=== PATIENT | female | born 1965 | race Caucasian/White ===

== ENCOUNTER → 2017-06-13 16:52 | Outpatient (CLI) | payer BC, SELFPAY ==
--- NOTE | 2017-06-13 16:59 | MM_ITS ---
MM Dig screening mamm BI w/CAD CAD Screening COMPARISON: Digital mammograms 05/27/2015 and 07/22/2016 INDICATION: There is no personal or family history of breast cancer. There is been previous biopsy right breast. TECHNIQUE: Standard CC and MLO images were obtained. R2 CAD reviewed. FINDINGS: Scattered fibroglandular densities are seen in both breasts. The findings are stable and unchanged from previous exam. There is no suspicious lesion and there are no suspicious microcalcifications. Small nodes in both axilla. IMPRESSION: Stable exam no suspicious lesion seen recommend yearly follow-up BI-RADS Category: 2 Benign Finding(s) RECOMMENDED FOLLOW-UP: 1YR - 1 YEAR FOLLOW-UP (A letter has been sent to the patient regarding results of the study.)
[2017-06-13 19:42] LABS: Alanine Aminotransferase 44 U/L (12-78); Albumin Level 4.2 gm/dL (3.4-5.0); Albumin/Globulin Ratio 1.4 (1.1-1.8); Alkaline Phosphatase 116 U/L (46-116); Aspartate Amino Transferase 21 U/L (15-37); Bilirubin,Total 0.3 mg/dL (0.2-1.0); Blood Urea Nitrogen 21 mg/dL (7-18); Calcium 9.2 mg/dL (8.5-10.1); Carbon Dioxide 34 mmol/L (21.0-32.0); Chloride 99 mmol/L (98-107); Creatinine,Serum 1.24 mg/dL (0.55-1.02); Estimated Glomerular Filt Rate 45 ml/min (>60); GFR (African American) 55 ML/MIN (>60); Globulin 3.1 gm/dl (1.3-3.2); Glucose 107 mg/dL (74-106); Sodium 138 mmol/L (136-145); Total Protein,Serum 7.3 gm/dL (6.4-8.2)
== END ==
PROVIDERS: PCP Family Medicine; Visit Provider Family Medicine
DX: Z12.31 Encounter for screening mammogram for malignant neoplasm of breast (principal)
CPT/HCPCS: 77067; 80053

== ENCOUNTER → 2017-06-13 17:18 | Outpatient (CLI) | payer BC, SELFPAY | PROVIDERS: PCP Family Medicine; Visit Provider Family Medicine | DX: R74.8 Abnormal levels of other serum enzymes (principal) ==

== ENCOUNTER → 2018-06-16 16:41 | Outpatient (CLI) | payer BC, SELFPAY ==
--- NOTE | 2018-06-16 16:44 | MM_ITS ---
MM Dig screening mamm BI w/CAD CAD Screening COMPARISON: Digital mammograms with CAD 06/13/2017 and 07/22/2016 INDICATION: There is no personal or family history of breast cancer. There has been a previous biopsy for benign disease right breast TECHNIQUE: Standard CC and MLO images were obtained. R2 CAD reviewed. FINDINGS: Mild to moderate fibroglandular densities are seen in the central portions of both breasts. The findings are bilateral and symmetrical. There is no suspicious lesion in either breast and there are no suspicious microcalcifications. IMPRESSION: Stable exam with no suspicious lesion seen BI-RADS Category: 1 Negative RECOMMENDED FOLLOW-UP: 1YR - 1 YEAR FOLLOW-UP (A letter has been sent to the patient regarding results of the study.)
== END ==
PROVIDERS: PCP Family Medicine; Visit Provider Family Medicine
DX: Z12.31 Encounter for screening mammogram for malignant neoplasm of breast (principal)
CPT/HCPCS: 77067

== ENCOUNTER → 2019-03-14 07:06 | Outpatient (CLI) | payer BC, SELFPAY ==
[2019-03-14 07:35] LABS: Basophils # 0.1 K/mm3 (0-0.2); Basophils % 1.2 % (0.1-2.0); Eosinophils # 0.2 K/mm3 (0.0-0.4); Eosinophils % 2.7 % (0.1-12.0); Hematocrit 42.8 % (37.0-47.0); Hemoglobin 13.3 g/dL (12.2-16.2); Lymphocytes # 1.9 K/mm3 (0.7-4.5); Lymphocytes % 32.9 % (10-50); Mean Corpuscular Hemoglobin 29.2 pg (27.0-31.2); Mean Corpuscular Volume 94.1 fl (81-99); Mean Platelet Volume 8.4 fl (7.4-10.4); Monocytes # 0.3 K/mm3 (0.1-1.0); Monocytes % 4.7 % (1.7-9.3); Neutrophils # 3.3 K/mm3 (1.8-7.8); Neutrophils % 58.6 % (37.0-80.0); Platelet Count 267 K/mm3 (142-424); Red Blood Count 4.55 M/mm3 (4.20-5.40); Red Cell Distribution Width 14.7 % (11.5-17.5); White Blood Count 5.7 K/mm3 (4.8-10.8)
[2019-03-14 08:55] LABS: Alanine Aminotransferase 52 U/L (12-78); Albumin Level 3.5 gm/dL (3.4-5.0); Alkaline Phosphatase 97 U/L (46-116); Anion Gap 11.6 mEq/L (5-15); Aspartate Amino Transferase 19 U/L (15-37); Bilirubin,Total 0.4 mg/dL (0.2-1.0); Blood Urea Nitrogen 23 mg/dL (7-18); Calcium 8.9 mg/dL (8.5-10.1); Carbon Dioxide 30 mmol/L (21.0-32.0); Chloride 103 mmol/L (98-107); Chol/HDL Ratio 4.9 (1-3.5); Cholesterol 242 mg/dL (140-200); Creatinine,Serum 1.02 mg/dL (0.55-1.02); Estimated Glomerular Filt Rate 56 ml/min (>60); GFR (African American) 68 ML/MIN (>60); Globulin 3.5 gm/dl (1.3-3.2); Glucose 116 mg/dL (74-106); HDL Cholesterol 49 mg/dL (29-89); LDL Cholesterol 153 mg/dL (0-130); Potassium 4.6 mmoL/L (3.5-5.1); Sodium 140 mmol/L (136-145); Triglycerides 199 mg/dL (30-200); VLDL Cholesterol 40 mg/dL (0-40)
[2019-03-14 11:26] LABS: Hemoglobin A1C 6.4 % (0.0-7.0)
[2019-03-15 09:12] LABS: Iron 76 ug/dL (27-159); UIBC 215 ug/dL (131-425)
[2019-03-15 14:27] LABS: Vitamin D 25 Hydroxy 29.2 ng/mL (30.0-100.0)
[2019-03-15 14:28] LABS: Iron Saturation 26 % (15-55)
== END ==
PROVIDERS: Visit Provider Physician Assistant
DX: I10 Essential (primary) hypertension (principal); E78.00 Pure hypercholesterolemia, unspecified; E55.9 Vitamin D deficiency, unspecified; R73.9 Hyperglycemia, unspecified; E61.1 Iron deficiency
CPT/HCPCS: 36415; 80053; 80061; 82652; 83036; 83540; 83550; 85025

== ENCOUNTER → 2019-03-30 13:45 | Outpatient (CLI) | payer BC, SELFPAY ==
--- NOTE | 2019-03-30 13:48 | XR_ITS ---
PROCEDURE: XR HAND RT MIN 3V CLINICAL INDICATION: Rt hand pain COMPARISON: No exams were available for comparison FINDINGS: No fracture or dislocation. No lytic or blastic change. There is normal mineralization. There is some mild lateral subluxation of the 1st metacarpal with minimal osteoarthritic change at the 1st MCP joint IMPRESSION: There is some mild lateral subluxation of the 1st metacarpal with minimal osteoarthritic change at the 1st MCP joint Dictated by: Dirk Massey MD 03/30/2019 15:43 Electronically signed by Dirk Massey MD in [place] 03/30/2019 15:43
== END ==
PROVIDERS: PCP Family Medicine; Visit Provider Orthopaedic Surgery
DX: M79.641 Pain in right hand (principal)
CPT/HCPCS: 73130

== ENCOUNTER → 2019-04-16 14:15 | Outpatient (POV) | payer BC, SELFPAY | PROVIDERS: Visit Provider Specialist | DX: G56.01 Carpal tunnel syndrome, right upper limb (principal); R20.0 Anesthesia of skin | CPT/HCPCS: 95886; 95910 ==

== ENCOUNTER → 2019-07-04 16:42 | Outpatient (CLI) | payer BC, SELFPAY ==
--- NOTE | 2019-07-04 | MM_ITS ---
PROCEDURE: MM DIG SCREENING MAMM BI W/CAD CLINICAL INDICATION: ROUTINE SCREENING COMPARISON: DMSB DIG MAMM-SCREEN ANDREIA from 05/22/2014 D[facility]B DIG MAMM-SCREEN ANDREIA from 05/27/2015 DMDXUAVL DIG MAMM-DX UNI ADD VIEWS-LT from 06/05/2015 DMDXUWAL DIG MAMM-DX UNI LT W ADD VIEW from 01/02/2016 [facility] DIG MAMM-SCREEN ANDREIA W/CAD from 07/22/2016 [facility] MM Dig screening mamm BI w/CAD from 06/13/2017 [facility] MM Dig screening mamm BI w/CAD from 06/16/2018 TECHNIQUE: Standard CC and MLO images and 3D Tomosynthesis was obtained. R2 CAD reviewed. FINDINGS: There is average fibroglandular tissue. On the right MLO there is skin fold artifact in the axilla. Recommend repeat view with compression the skin fold artifact. On the CC view on the right there is a rounded 7 mm nodular density in the lateral aspect of the right breast. This is not demonstrated on the MLO view. Suggest additional views with spot compression cc, straight mL view and right breast ultrasound. The left breast has an unremarkable appearance. IMPRESSION: BI-RAD Category: 0 Need Additional Imaging Evaluation FOLLOW-UP: IMM Immediate Follow-up Recommended (A letter has been sent to the patient regarding results of the study.) Dictated by: Dirk Massey MD 07/12/2019 11:09 Electronically signed by Dirk Massey MD in [place] 07/12/2019 11:09
== END ==
PROVIDERS: PCP Family Medicine; Visit Provider Family Medicine
DX: Z12.39 Encounter for other screening for malignant neoplasm of breast (principal)
CPT/HCPCS: 77063; 77067

== ENCOUNTER → 2019-07-30 14:05 | Outpatient (CLI) | payer BC, SELFPAY ==
--- NOTE | 2019-07-30 14:11 | MM_ITS ---
PROCEDURE: MM DIG MAMM DX UNILAT RT CAD CLINICAL INDICATION: ABNORMAL MAMM COMPARISON: [facility] MM Dig screening mamm BI w/CAD from 06/13/2017 [facility] MM Dig screening mamm BI w/CAD from 06/16/2018 MM DIG SCREENING MAMM BI W/CAD from 07/04/2019 US BREAST RT COMPLETE from 07/30/2019 TECHNIQUE: Additional MLO, spot-compression views, repeat 3D tomosynthesis, and right breast ultrasound FINDINGS: Average fibroglandular tissue. Additional MLO was performed with resolution of the skin fold artifact. Small cluster of calcifications are noted in the inferior aspect of the right breast and a not appear significantly changed. The nodular area in the lateral aspect of the right breast does appear to at least partially compress out Right breast ultrasound: At 12 o'clock there is a 4 x 3 mm cyst. At 9 o'clock there is a complex cystic lesion at 6 x 5 mm and may correspond to the nodular area noted on the mammogram/tomogram. In the retroareolar region there is a 1 x 0.5 cm cystic area versus dilated duct. No suspicious nodules evident IMPRESSION: Probably benign findings with no convincing evidence of malignancy. Recommend six-month mammographic and sonographic follow-up for the complex cystic nodule laterally. BI-RAD Category: 3 Probably Benign Finding Short Term Follow-up FOLLOW-UP: 6M 6Month Follow-up (A letter has been sent to the patient regarding results of the study.) Dictated by: Dirk Massey MD 08/06/2019 11:51 Electronically signed by Dirk Massey MD in [place] 08/06/2019 11:51
== END ==
PROVIDERS: PCP Family Medicine; Visit Provider Family Medicine
DX: R92.8 Other abnormal and inconclusive findings on diagnostic imaging of breast (principal)
CPT/HCPCS: 76641; 77061; 77065; G0279

== ENCOUNTER 2020-01-01 17:40 | Emergency (ER) | payer BC, SELFPAY ==
[2020-01-01 18:05] VITALS: BP 143/94; PULSE 80; RESP 16; TEMP 36.8; O2SAT 98; BMI 28.1
--- NOTE | 2020-01-01 18:12 | HMH.EDUTC ---
[facility] [place] Clinical Impression: Vertigo Disposition: Home, Self-Care Condition on Discharge: Good Instructions: Vertigo Additional Instructions: if any new symptoms come back to ed meds as ordered follow up with pcp in am Prescriptions: Meclizine HCl 25 mg PO BID 4 Days #8 tab Prescription Printed Referrals: Jay Cooper [Primary Care Provider] - Time of Disposition: 18:25 Medical Decision Making - [place] Inquiry Pt receiving controlled substance: No Vital Signs: 01/01/20 18:05 Temperature 98.2 F Temperature Source Oral Pulse Rate [Right Brachial] 80 Respiratory Rate 16 Blood Pressure [Right Arm] 143/94 H Blood Pressure Mean [Right Arm] 110 Blood Pressure Source [Right Arm] Automatic Cuff Blood Pressure Position [Right Arm] Sitting 02 Sat by Pulse Oximetry 98 Oxygen Delivery Method Room Air [facility] [place] HPI - General Chief complaint: Urgent [facility] Stated complaint: possible inner ear infection both ears Time Seen by Provider: 01/01/20 18:12 Mode of Arrival: Ambulatory Source of Information: Patient Limitations: No Limitations Description of Symptoms (Recalled from Triage Doc. by RN): VERTIGO HEENT Symptoms (Recalled from RN notes): No Resp Symptoms (Recalled from RN notes): No Skin Symptoms (Recalled from RN notes): No MS Symptoms (Recalled from RN notes): No Functional Status (Recalled from RN notes): NONE - History of Present Illness Provider Complaint: 54-year-old female presents for dizziness and foggy feeling. Patient states she has a history of vertigo and this feels like her normal vertigo patient states no weakness numbness or any other symptoms.pt does not want to go to ed for eval states this is like her normal vertigo - Related Data Home Medications Medication Instructions Recorded Confirmed escitalopram oxalate 10 mg tablet 10 mg PO DAILY 90 Days tab 11/22/17 07/16/19 triamterene 37.5 1 cap PO DAILY 90 Days cap 11/22/17 07/16/19 mg-hydrochlorothiazide 25 mg capsule pramipexole 0.125 mg tablet 3 tab PO DAILY #90 tab 03/05/19 07/16/19 atorvastatin 10 mg tablet 10 mg PO DAILY 04/15/19 07/16/19 pantoprazole 40 mg granules 40 mg PO DAILY 04/15/19 07/16/19 delayed-release for susp in packet Previous Rx's Medication Instructions Recorded Meclizine HCl 25 mg PO BID 4 Days #8 tab 01/01/20 Allergies Allergy/AdvReac Type Severity Reaction Status Date / Time acetaminophen [From Percocet] AdvReac Mild NA-NAUSEA Verified 07/16/19 13:39 aspirin AdvReac Mild NA-NAUSEA Verified 07/16/19 13:39 codeine AdvReac Mild NA-NAUSEA Verified 07/16/19 13:39 oxycodone [From Percocet] AdvReac Mild NA-NAUSEA Verified 07/16/19 13:39 Sulfa (Sulfonamide AdvReac Mild NA-NAUSEA Verified 07/16/19 13:39 Antibiotics) - Worker's Comp Is this a Worker's Comp case?: No [facility] History - Hepatitis A Screen Drug use history?: No High risk sexual behaviors?: No History of sexually transmitted infection?: No Currently employed?: No Childcare worker?: No Do you have indoor plumbing?: Yes Do you have electricity?: Yes Attestation statement:: This patient has been screened for Hepatitis A risk factors. I have reviewed the patient's past medical history: Yes Medical History: Reports:: Anxiety, Depression, Gastroesophageal Reflux Disease(GERD), Hypertension Denies:: Cancer, Diabetes Mellitus Type 1, Diabetes Mellitus Type 2, Internal Pacemaker, MRSA, Seizures Other Medical History: Reports: Other. Denies: Blood Transfusion Reaction Comment: restless leg syndrome Other Surgeries: Yes: Cholecystectomy, Colonoscopy, Hysterectomy-Partial. No: Pacemaker Amputation: No Fractures: No Comment: Lithotripsy - Social History Smoking Status: Never smoker Alcohol Intake: never Alcohol Intake Frequency:: a few times a month Substance Use Type: denies use Occupational Status: employed Housing: house Household Members: spouse - Psychiatric History Pschychiatric History:: Re
[2020-01-01 18:19] VITALS: BP 143/69; PULSE 80; RESP 16; TEMP 36.8
== END 2020-01-01 18:35 | disposition home or self-care (01) ==
PROVIDERS: Emergency Provider Nurse Practitioner Family; PCP Family Medicine
DX: R42 Dizziness and giddiness (principal); F41.8 Other specified anxiety disorders; K21.9 Gastro-esophageal reflux disease without esophagitis; I10 Essential (primary) hypertension; Z90.49 Acquired absence of other specified parts of digestive tract; Z79.899 Other long term (current) drug therapy; Z88.2 Allergy status to sulfonamides
CPT/HCPCS: 99201

== ENCOUNTER → 2020-02-06 14:11 | Outpatient (CLI) | payer BC, SELFPAY ==
--- NOTE | 2020-02-06 14:20 | MM_ITS ---
PROCEDURE: MM DIG MAMM DX UNILAT RT CAD Digital Breast Tomosynthesis Included CLINICAL INDICATION: ABN MAMM COMPARISON: MG [facility] MM Dig screening mamm BI w/CAD from 06/16/2018 MG MM DIG SCREENING MAMM BI W/CAD from 07/04/2019 MG MM DIG MAMM DX UNILAT RT CAD from 07/30/2019 US US BREAST RT COMPLETE from 02/06/2020 TECHNIQUE: Standard CC and MLO images and 3D Tomosynthesis was obtained. R2 CAD reviewed. FINDINGS: Fibroglandular densities are seen in the breast primarily upper outer quadrant. Mendez images again demonstrate a small irregular density unchanged in appearance from the previous exams. Ultrasound performed same date shows a stable small complex cyst with internal septation. IMPRESSION: Stable exam with stable small complex cyst and recommend the patient continue with yearly screening mammography BI-RAD Category: 2 Benign Finding(s) FOLLOW-UP: 6M 6Month Follow-up to return to normal yearly screening schedule (A letter has been sent to the patient regarding results of the study.) Dictated by: Dr. Eben Sanz MD 02/08/2020 11:09 Dr. Eben Sanz MD in [place] 02/08/2020 11:09
--- NOTE | 2020-02-06 14:20 | US_ITS ---
PROCEDURE: US BREAST RT COMPLETE CLINICAL INDICATION: ABN MAMM COMPARISON: US US BREAST RT COMPLETE from 07/30/2019 MG MM DIG MAMM DX UNILAT RT CAD from 02/06/2020 FINDINGS: Stable small hypoechoic cystic lesion with internal septation at the 9 o'clock position outer breast measuring 0.5 x 0.5 by 0.5 cm. This likely accounts for the small asymmetric density on the mammogram. It is stable unchanged in size and overall appearance from the previous ultrasound exam 07/30/2019 there is a stable small cystic lesion near the nipple. There couple of tiny cystic lesions near the nipple the 12 1 o'clock position and these were seen previously. There is no suspicious solid lesion. IMPRESSION: Stable cystic lesion likely complex cyst 9 o'clock position which likely accounts for the asymmetric density on recent mammogram Dictated by: Dr. Eben Sanz MD 02/08/2020 13:35 Dr. Eben Sanz MD in [place] 02/08/2020 13:35
== END ==
PROVIDERS: PCP Family Medicine; Visit Provider Physician Assistant
DX: R92.8 Other abnormal and inconclusive findings on diagnostic imaging of breast (principal)
CPT/HCPCS: 76641; 77061; 77065; G0279

== ENCOUNTER 2020-05-02 11:05 | Emergency (ER) | payer BC, SELFPAY ==
[2020-05-02 11:30] VITALS: BP 158/98; PULSE 65; RESP 16; TEMP 36.9; O2SAT 99; BMI 29.1
--- NOTE | 2020-05-02 11:50 | HMH.EDUTC ---
[facility] [place] Disposition Clinical Impression: Viral syndrome, Exposure to COVID-19 virus Pharyngitis Qualifiers: Pharyngitis/tonsillitis etiology: unspecified etiology Qualified Code(s): J02.9 - Acute pharyngitis, unspecified Disposition: Home, Self-Care Condition on Discharge: Good Instructions: Preventing the Spread of Coronavirus Discharge Instructions Additional Instructions: Drink plenty of fluids. Take tylenol for pain or fever. Take the medications as directed. Follow up with your regular doctor. GO TO THE ER FOR ANY WORSENING SYMPTOMS Prescriptions: Benzonatate [Tessalon Perle 100mg Cap] 100 mg PO TIDP PRN #30 cap PRN Reason: Cough Transmission Status: Received by [facility] # Azithromycin [Z-Ray 250mg Tab*] 250 mg PO UD DOSE PK #6 tab Transmission Status: Received by [facility] # Referrals: Jay Cooper [Primary Care Provider] - Time of Disposition: 11:55 Medical Decision Making - Medical Records Medical records reviewed: No: I reviewed the patient's medical records. - [place] Inquiry Pt receiving controlled substance: No Vital Signs: 05/02/20 11:30 05/02/20 11:58 Temperature 98.4 F 98.6 F Temperature Source Oral Oral Pulse Rate 74 Pulse Rate [Right] 65 Respiratory Rate 16 16 Blood Pressure 154/94 H Blood Pressure [Right Arm] 158/98 H Blood Pressure Mean [Right Arm] 118 Blood Pressure Source Automatic Cuff Blood Pressure Source [Right Arm] Automatic Cuff Blood Pressure Position Sitting Blood Pressure Position [Right Arm] Sitting 02 Sat by Pulse Oximetry 99 Oxygen Delivery Method Room Air Room Air [facility] [place] HPI - General Stated complaint: Covid test Time Seen by Provider: 05/02/20 11:50 Mode of Arrival: Ambulatory Source of Information: Patient Limitations: No Limitations Description of Symptoms (Recalled from Triage Doc. by RN): headache, dry cough, rash, sore throat since yesterday HEENT Symptoms (Recalled from RN notes): Yes (cough, headache, rash) Resp Symptoms (Recalled from RN notes): No Skin Symptoms (Recalled from RN notes): No MS Symptoms (Recalled from RN notes): No Functional Status (Recalled from RN notes): na - History of Present Illness Provider Complaint: She states that since yesterday she has had a cough, chest congestion, sinus congestion, sore throat, chilling, and a skin rash. She states that she feels very bad and has had body aches. She denies any known exposure to covid. - Related Data Home Medications Medication Instructions Recorded Confirmed escitalopram oxalate 10 mg tablet 10 mg PO DAILY 90 Days tab 11/22/17 01/01/20 triamterene 37.5 1 cap PO DAILY 90 Days cap 11/22/17 01/01/20 mg-hydrochlorothiazide 25 mg capsule pramipexole 0.125 mg tablet 3 tab PO DAILY #90 tab 03/05/19 01/01/20 atorvastatin 10 mg tablet 10 mg PO DAILY 04/15/19 01/01/20 pantoprazole 40 mg granules 40 mg PO DAILY 04/15/19 01/01/20 delayed-release for susp in packet Previous Rx's Medication Instructions Recorded Meclizine HCl 25 mg PO BID 4 Days #8 tab 01/01/20 Azithromycin [Z-Ray 250mg Tab*] 250 mg PO UD DOSE PK #6 tab 05/02/20 Benzonatate [Tessalon Perle 100mg 100 mg PO TIDP PRN #30 cap 05/02/20 Cap] Allergies Allergy/AdvReac Type Severity Reaction Status Date / Time acetaminophen [From Percocet] AdvReac Mild NA-NAUSEA Verified 01/01/20 18:18 aspirin AdvReac Mild NA-NAUSEA Verified 01/01/20 18:18 codeine AdvReac Mild NA-NAUSEA Verified 01/01/20 18:18 oxycodone [From Percocet] AdvReac Mild NA-NAUSEA Verified 01/01/20 18:18 Sulfa (Sulfonamide AdvReac Mild NA-NAUSEA Verified 01/01/20 18:18 Antibiotics) - Worker's Comp Is this a Worker's Comp case?: No [facility] History - Hepatitis A Screen Drug use history?: No High risk sexual behaviors?: No History of sexually transmitted infection?: No Currently employed?: No Childcare worker?: No Do you have indoor plumbing?: Yes Do you have electricity?:
[2020-05-02 11:58] VITALS: BP 154/94; PULSE 74; RESP 16; TEMP 37; O2SAT 98
--- NOTE | 2020-05-02 19:49 | PC.NURSE ---
patient notified of positive covid results
== END 2020-05-02 11:58 | disposition home or self-care (01) ==
PROVIDERS: Emergency Provider Nurse Practitioner Family; PCP Family Medicine
DX: U07.1 COVID-19 (principal); I10 Essential (primary) hypertension; K21.9 Gastro-esophageal reflux disease without esophagitis; F41.8 Other specified anxiety disorders; Z88.2 Allergy status to sulfonamides; Z88.5 Allergy status to narcotic agent; Z79.899 Other long term (current) drug therapy
CPT/HCPCS: 99201; U0003

== ENCOUNTER → 2020-06-19 07:51 | Outpatient (CLI) | payer BC, SELFPAY ==
[2020-06-19 09:59] LABS: Chloride 101 mmol/L (98-107); Potassium 4.4 mmoL/L (3.5-5.1); Sodium 142 mmol/L (136-145)
[2020-06-19 10:01] LABS: Alanine Aminotransferase 37 U/L (12-78); Aspartate Amino Transferase 29 U/L (14-36); Blood Urea Nitrogen 23 mg/dl (7-17); Estimated Glomerular Filt Rate 57 ml/min (>60); GFR (African American) 69 ML/MIN (>60)
[2020-06-19 10:02] LABS: Albumin Level 4.5 g/dl (3.5-5.0); Albumin/Globulin Ratio 1.6 (1.1-1.8); Alkaline Phosphatase 102 U/L (38-126); Anion Gap 13.4 mEq/L (5-15); Bilirubin,Total 0.7 mg/dl (0.2-1.3); Calcium 10.3 mg/dl (8.4-10.2); Carbon Dioxide 32 mmol/L (22.0-30.0); Creatine Kinase 55 U/L (30-135); Globulin 2.8 g/dL (1.3-3.2); Glucose 125 mg/dl (74-100); Total Protein,Serum 7.3 g/dl (6.3-8.2)
[2020-06-19 10:09] LABS: Creatine Kinase MB 1.1 ng/ml (0.0-2.03)
== END ==
PROVIDERS: Visit Provider Physician Assistant
DX: R74.8 Abnormal levels of other serum enzymes (principal)
CPT/HCPCS: 36415; 80053; 82550; 82553

== ENCOUNTER → 2020-07-25 13:45 | Outpatient (CLI) | payer BC, SELFPAY ==
--- NOTE | 2020-07-25 14:04 | MM_ITS ---
PROCEDURE: MM DIG SCREENING MAMM BI W/CAD Digital Breast Tomosynthesis Included CLINICAL INDICATION: 6 MONTH FOLLOW UP TO RESUME SCREENING SCHEDULE There is a history of breast cancer patient's paternal aunt. There has been a previous biopsy right breast for benign disease. COMPARISON: MG MM DIG SCREENING MAMM BI W/CAD from 07/04/2019 MG MM DIG MAMM DX UNILAT RT CAD from 07/30/2019 MG MM DIG MAMM DX UNILAT RT CAD from 02/06/2020 TECHNIQUE: Standard CC and MLO images and 3D Tomosynthesis was obtained. R2 CAD reviewed. FINDINGS: Scattered fibroglandular densities are seen throughout both breasts. There is a mole marker left breast. The slightly asymmetric density central portion right breast best seen on the CC projection is again noted stable and unchanged from previous exams and robin images in particular reveal no suspicious characteristics. There are no suspicious microcalcifications. IMPRESSION: Fibrofatty parenchyma with no suspicious lesions seen BI-RAD Category: 1 Negative FOLLOW-UP: 1YR 1 Year Follow-up (A letter has been sent to the patient regarding results of the study.) Dictated by: Dr. Eben Sanz MD 07/28/2020 08:01 Dr. Eben Sanz MD in [place] 07/28/2020 08:01
== END ==
PROVIDERS: PCP Family Medicine; Visit Provider Family Medicine
DX: R92.8 Other abnormal and inconclusive findings on diagnostic imaging of breast (principal)
CPT/HCPCS: 77063; 77067

== ENCOUNTER → 2021-02-16 07:59 | Outpatient (CLI) | payer BC, SELFPAY ==
--- NOTE | 2021-02-16 08:02 | MM_ITS ---
PROCEDURE: MM DIG SCREENING MAMM BI W/CAD Digital Breast Tomosynthesis Included CLINICAL INDICATION: SCREENING COMPARISON: MG [facility] MM Dig screening mamm BI w/CAD from 06/13/2017 MG [facility] MM Dig screening mamm BI w/CAD from 06/16/2018 MG MM DIG SCREENING MAMM BI W/CAD from 07/04/2019 MG MM DIG MAMM DX UNILAT RT CAD from 07/30/2019 MG MM DIG MAMM DX UNILAT RT CAD from 02/06/2020 MG MM DIG SCREENING MAMM BI W/CAD from 07/25/2020 TECHNIQUE: Standard CC and MLO images and 3D Tomosynthesis was obtained. R2 CAD reviewed. FINDINGS: There are scattered areas of fibroglandular density. No suspicious appearing mass, malignant-appearing microcalcification, architectural distortion, or skin thickening.. No significant change IMPRESSION: No change with no evidence of malignancy BI-RAD Category: 1 Negative FOLLOW-UP: 1 YR 1 Year Follow-up (A letter has been sent to the patient regarding results of the study.) Dictated by: Dirk Massey MD 02/26/2021 13:33 Dirk Massey MD in [place] 02/26/2021 13:33
== END ==
PROVIDERS: PCP Family Medicine; Visit Provider Family Medicine
DX: Z12.31 Encounter for screening mammogram for malignant neoplasm of breast (principal)
CPT/HCPCS: 77063; 77067

== ENCOUNTER 2021-05-06 09:30 | Emergency (ER) | payer OTHER, SELFPAY ==
[2021-05-06 10:00] VITALS: BP 131/96; PULSE 76; RESP 18; TEMP 37; O2SAT 98; BMI 25.8
--- NOTE | 2021-05-06 10:15 | XR_ITS ---
PROCEDURE: XR LUMBAR SPINE 2-3V CLINICAL INDICATION: PAIN COMPARISON: No exams were available for comparison FINDINGS: Mild lumbar scoliosis convex right. Normal alignment. No acute fracture or dislocation. Degenerative disc disease T8-T9, T9-T10, T10-T11, T11-T12. Degenerative disc disease L1-L2 and L2-L3. 2 mm anterolisthesis L4 on L5. No obvious lytic or blastic changes. Other findings:None. IMPRESSION: Degenerative changes as described above, no acute finding. Dictated by: Dirk Massey MD 05/06/2021 11:45 Dirk Massey MD in [place] 05/06/2021 11:45
--- NOTE | 2021-05-06 10:15 | XR_ITS ---
PROCEDURE: XR WRIST RT MIN 3V CLINICAL INDICATION: KNOT ON WRIST COMPARISON: No exams were available for comparison FINDINGS: No fracture or dislocation. No lytic or blastic change. There is normal mineralization. The joint spaces are well-preserved. No significant degenerative/arthritic changes. No erosive changes evident. Other findings:No abnormal soft tissue calcification or bony exostosis IMPRESSION: No acute findings. Dictated by: Dirk Massey MD 05/06/2021 11:40 Dirk Massey MD in [place] 05/06/2021 11:40
[2021-05-06 10:24] LABS: Apearance,Urine Clear (Clear); Bilirubin,Urine Negative (Negative); Blood, Urine 2+ (Negative); Color,Urine Yellow (Yellow); Glucose,Urine (UA) Negative (Negative); Ketones,Urine Negative (Negative); Protein,Urine Negative (Negative); Specific Gravity, Urine 1.015 (1.005-1.030); UTC Leukocyte Esterase,Urine Negative (Negative); UTC Nitrate,Urine Negative (Negative); Urobilinogen,Urine 0.2 EU/dl (0.2)
--- NOTE | 2021-05-06 10:58 | HMH.EDUTC ---
[facility] [place] Disposition Clinical Impression: Low back pain Qualifiers: Chronicity: unspecified Back pain laterality: midline Sciatica presence: without sciatica Qualified Code(s): M54.50 - Low back pain, unspecified Wrist pain Qualifiers: Laterality: right Qualified Code(s): M25.531 - Pain in right wrist Disposition: Home, Self-Care Condition on Discharge: Good Instructions: Low Back Pain, DI for Low Back Pain, Methocarbamol, Methylprednisolone Additional Instructions: *Ibuprofen fior 6 hours with meal as needed for pain/inflammation if you can take it *Not additional anti-inflammatory like motrin, aleve, advil with the above amount of ibuprofen. You can still take Tylenol every 4 hours as needed if you need something else for pain *Ice 20 minutes every 2 hours for the first 48 hours after the initial injury followed by moist heat every 20 minutes 3-4 times a day to affected area *Muscle relaxer every 12 hours as needed for muscle spasms but remember, it WILL cause drowsiness You cannot take it and drive, operate machinery or care for small children. *Keep this area active, no movement leads to more stiffness, However take it easy and avoid heavy lifting pushing or pulling *Follow up with you family doctor if no improvement for further treatment Prescriptions: methylPREDNISolone [Medrol 4mg tab] 4 mg PO DIRECTED #21 tab Transmission Status: [facility] methocarbamoL [Methocarbamol] 750 mg PO BID PRN #10 tab PRN Reason: Muscle Spasm Transmission Status: Received by [facility] Referrals: Jay Cooper [Primary Care Provider] - As needed Time of Disposition: 11:51 Medical Decision Making - [place] Inquiry Pt receiving controlled substance: No [place] was queried for this patient: No Vital Signs: 05/06/21 10:00 05/06/21 11:37 Temperature 98.6 F 98.6 F Temperature Source Oral Pulse Rate 76 Pulse Rate [Right Brachial] 76 Respiratory Rate 18 18 Blood Pressure 131/96 H Blood Pressure [Right Arm] 131/96 H Blood Pressure Mean [Right Arm] 107 Blood Pressure Source [Right Arm] Automatic Cuff Blood Pressure Position [Right Arm] Sitting 02 Sat by Pulse Oximetry 98 Oxygen Delivery Method Room Air - Lab Data Lab results reviewed: Yes: I reviewed the patient's lab results. Lab Results 05/06/21 10:15: Urine Color Yellow, Urine Appearance Clear, Urine pH 6.0, Ur Specific Alligator 1.015, Urine Protein Negative, Urine Glucose (UA) Negative, Urine Ketones Negative, Urine Blood 2+, Urine Nitrate Negative, Urine Bilirubin Negative, Urine Urobilinogen 0.2, Ur Leukocyte Esterase Negative Orders (Tests/Meds): ED MEDICATIONS Discontinued Medications Generic Name Dose Route Start Last Admin Trade Name Lloyd PRN Reason Stop Dose Admin Methylprednisolone Sodium Succinate 125 mg 05/06/21 11:31 05/06/21 11:35 Methylprednisolone Sod Succ 125mg Vial IM 05/06/21 11:32 125 mg ONCE ONE Administration - Radiology Data #1 Image(s): Wrist Image Reviewed: Yes I reviewed the patient's radiology image Preliminary Findings: No Fracture Seen #2 Image(s): L-Spine Image Reviewed: Yes I have reviewed radiologist's interpretation IMPRESSION: Degenerative changes as described above, no acute finding. [facility] [place] HPI - General Stated complaint: lower back pain Time Seen by Provider: 05/06/21 10:59 Mode of Arrival: Ambulatory Source of Information: Patient Limitations: No Limitations Description of Symptoms (Recalled from Triage Doc. by RN): PATIENT C/O LOWER BACK PAIN SINCE LAST TUESDAY AND KNOT TO RIGHT WRIST. 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
[2021-05-06 11:37] VITALS: BP 131/96; PULSE 76; RESP 18; TEMP 37; O2SAT 98
== END 2021-05-06 12:04 | disposition home or self-care (01) ==
PROVIDERS: Emergency Provider Nurse Practitioner; PCP Family Medicine
DX: M54.50 Low back pain, unspecified (principal); M25.531 Pain in right wrist; F41.8 Other specified anxiety disorders; K21.9 Gastro-esophageal reflux disease without esophagitis; I10 Essential (primary) hypertension; Z88.2 Allergy status to sulfonamides; Z88.5 Allergy status to narcotic agent
CPT/HCPCS: 29125; 72100; 73110; 81003; 96372; 99203; G0463

== ENCOUNTER 2021-07-08 14:18 | Outpatient (RCR) | payer OTHER, SELFPAY | END 2021-07-08 15:20 | disposition home or self-care (01) | LOC: OT 14:18 | PROVIDERS: Visit Provider Orthopaedic Surgery | DX: G56.02 Carpal tunnel syndrome, left upper limb (principal); M65.4 Radial styloid tenosynovitis [de Quervain] | CPT/HCPCS: 97763 ==

== ENCOUNTER → 2021-07-13 14:55 | Outpatient (CLI) | payer OTHER, SELFPAY ==
--- NOTE | 2021-07-13 14:55 | MR_ITS ---
FINAL REPORT CLINICAL HISTORY: MRI- pain. HX CARPAL TUNNEL SURGERY X3YRS AGO. CYST ON RADIAL ASPECT OF HAND [id number]. HAS GOTTEN BIGGER. PUT MARKER ON KNOT. PRIOR X-RAY 05-06-21 FINDINGS: Multiplanar MR imaging of the right wrist was performed without contrast. Mild degenerative changes are present. There is a small cyst and several carpal bones. There is mild bone marrow edema in the distal pole of the scaphoid. No fracture is identified. There is no evidence of intrinsic ligament injury. The triangular fibrocartilage is intact. There is extensor pollicis brevis and abductor pollicis longus tenosynovitis. There is a 4 mm fluid collection in the volar radial aspect of the radiocarpal joint consistent with a small ganglion. There is a 7 mm fluid collection radial to the radial styloid superficial to the extensor pollicis brevis, likely a ganglion. No focal abnormality is identified of the median nerve. IMPRESSION: Ganglion cysts as above. Tenosynovitis. Reviewed, Interpreted and Dictated by Giuseppe Flores III, MD Transcribed by Hyun Palacios Authenticated by Giuseppe Flores III, MD on 07/14/2021 09:08:[address] [facility]
== END ==
PROVIDERS: PCP Family Medicine; Visit Provider Orthopaedic Surgery
DX: M65.4 Radial styloid tenosynovitis [de Quervain] (principal)
CPT/HCPCS: 73221

== ENCOUNTER → 2021-07-27 16:37 | Outpatient (CLI) | payer OTHER, SELFPAY ==
--- NOTE | 2021-07-27 16:58 | ECG_ITS ---
APPROVED REPORT Exam: Resting ECG HR:60 bpm ECG Measurements Heart Rate 60 AXES AZ 158 P 73 QRSd 80 QRS 65 QT 408 T 48 QTc 409 Conclusion SINUS RHYTHM NORMAL ECG UNCONFIRMED REPORT Electronically signed by : Fabien Wang MD 07/28/2021 13:50:02
[2021-07-27 17:24] LABS: Basophils # 0.1 K/mm3 (0-0.2); Basophils % 1.3 % (0.1-2.0); Eosinophils # 0.4 K/mm3 (0.0-0.4); Eosinophils % 5.6 % (0.1-12.0); Hematocrit 38.9 % (37.0-47.0); Hemoglobin 12.6 g/dL (12.2-16.2); Lymphocytes # 1.8 K/mm3 (0.7-4.5); Lymphocytes % 27.3 % (10-50); Mean Corpuscular HGB Conc 32.4 g/dL (31.8-35.4); Mean Corpuscular Hemoglobin 29.9 pg (27.0-31.2); Mean Corpuscular Volume 92.4 fl (81-99); Mean Platelet Volume 8.2 fl (7.4-10.4); Monocytes # 0.3 K/mm3 (0.1-1.0); Monocytes % 4.8 % (1.7-9.3); Platelet Count 240 K/mm3 (142-424); Red Blood Count 4.21 M/mm3 (4.20-5.40); Red Cell Distribution Width 14.4 % (11.5-17.5); White Blood Count 6.5 K/mm3 (4.8-10.8)
[2021-07-27 18:14] LABS: Anion Gap 10.6 mEq/L (5-15); Blood Urea Nitrogen 32 mg/dl (7-17); Calcium 9.2 mg/dl (8.4-10.2); Carbon Dioxide 32 mmol/L (22.0-30.0); Chloride 101 mmol/L (98-107); Estimated Glomerular Filt Rate 46 ml/min (>60); GFR (African American) 56 ML/MIN (>60); Glucose 91 mg/dl (74-100); Potassium 4.6 mmoL/L (3.5-5.1); Sodium 139 mmol/L (136-145)
== END ==
PROVIDERS: Visit Provider Surgery
DX: Z01.818 Encounter for other preprocedural examination (principal); Z11.52 Encounter for screening for COVID-19; D17.9 Benign lipomatous neoplasm, unspecified
CPT/HCPCS: 36415; 80048; 85025; 93005; C9803; U0003; U0005

== ENCOUNTER 2021-07-30 06:08 | Day surgery (SDC) | payer OTHER, SELFPAY ==
[2021-07-27 09:41] VITALS: BMI 27.3
[2021-07-30] VITALS (9 sets, daily range): BP systolic 112–136; BP diastolic 60–89; PULSE 65–90; RESP 12–18; TEMP 36.2–37.1; O2SAT 93–97
--- NOTE | 2021-07-30 07:36 | HMH.ANESCL ---
[facility] Anesthesia Checklist - Structural Data Admitted From: Home Planned Operative Procedure/s: excision lipoma l flank Consent for Planned Operative Procedure(s) Verified: Yes - Additional verifications Anesthesia Reactions: No Hx Blood Transfusions: No Blood Transfusion Reaction: No - Airway Assessment C-Spine Mobility Assessed: Yes TMJ Mobility Assessed: Yes Dentition: Good Dentition - Neurological Assessment Level of Consciousness: Awake, Alert, Appropriate - Anesthesia Plan Anesthesia Risk discussed: Yes Anesthesia Plan: Verified ASA Class: II Anesthesia Type: General [facility] History I have reviewed the patient's past medical history: Yes Medical History: Reports:: Anxiety, Depression, Diabetes Mellitus Type 2, Gastroesophageal Reflux Disease(GERD), Hypertension Denies:: Cancer, Diabetes Mellitus Type 1, Internal Pacemaker, MRSA, Seizures *Have you ever received a pneumonia vaccine?: No *Have you received a flu vaccine this season?: Yes Other Medical History: Reports: Other. Denies: Blood Transfusion Reaction Anesthesia experience/problems:: none Laterality Cases: Right: Carpal Tunnel Release Other Surgeries: Yes: Cholecystectomy, Colonoscopy, Hysterectomy-Partial. No: Pacemaker Amputation: No Fractures: No - *Social History Last grade of school completed: Advanced degree Smoking Status: Never smoker Alcohol Intake: current Alcohol Intake Frequency:: a few times a week Substance Use Type: denies use *Occupational Status:: employed Housing: house Household Members: spouse *Travel in the last 8 weeks: None - Psychiatric History Pschychiatric History:: Reports:: Anxiety, Depression Family Hx:: Diabetes, Heart Attack, Hypertension
--- NOTE | 2021-07-30 07:50 | P.OP_ITS ---
Date of procedure: 07/30/21 Pre-op Diagnosis:: Left chest/flank lipoma (6 cm) Post-op Diagnosis:: Same Procedure performed:: Excision of 6 cm left chest/flank lipoma Surgeon:: Jaylen Aguilera MD WATCH ENGINE OPERATOR:: Kevin Panda Anesthesia: LMA Estimated blood loss (mL): 5 Operative findings:: Lipoma within deep subcutaneous tissue Operative note:: After informed consent was obtained the patient was taken to the operating room and placed in the supine position. General anesthesia with laryngeal mask airway was achieved. Her left chest/flank was prepped and draped in a sterile fashion. After infiltration local anesthetic an incision was made over the palpable lesion. The deep subcutaneous tissue was dissected with a combination of scalpel, electrocautery, and blunt dissection. A lipomatous lesion in the deep subcutaneous tissue was elevated and excised in toto. The lesion was passed off for pathologic evaluation. Electrocautery was utilized to achieve hemostasis. The subcutaneous tissue was reapproximated with interrupted Vicryl. Skin was then closed with 3-0 Stratafix. Dressings were applied and the patient was transferred to recovery in stable condition. Condition: stable Disposition: PACU Specimens:: Left chest/flank lipoma Complications:: No immediate
--- NOTE | 2021-07-30 07:58 | P.PN_ITS ---
[facility] Anesthesia Record Part I Intake, IV Amount: 900 Estimated blood loss (mL): 0 Urine output (mL): 0 Blood Pressure: 112/60 SaO2: 95 Pulse Rate: 90 Respiratory Rate: 12 Temperature: 97.7 F Patient is:: Awake, Stable Stable to PACU at:: 07:55
[2021-08-03 09:25] VITALS: BP 136/86; PULSE 83; TEMP 36.2
--- NOTE | 2021-08-03 09:25 | P.PN_ITS ---
[facility] Anesthesia Record Part II Discharge Time: 08:25 Destination: [facility] PACU nurse assessment reviewed?: Yes Patient Condition:: Good Anesthesia Complications:: None Swallowing reflex intact?: Yes Cyanosis?: No Blood Pressure: 136/86 Pulse Rate: 83 Temperature: 97.2 F Mental Status: Alert & Oriented Pain level:: 0 Nausea and/or vomitting:: None Intake, IV Amount: 500
== END 2021-07-30 09:00 | disposition home or self-care (01) ==
LOC: OR 06:09
PROVIDERS: PCP Family Medicine; Visit Provider Surgery
PROC: (CPT 11406; principal; 2021-07-30 07:30)
DX: D17.1 Benign lipomatous neoplasm of skin and subcutaneous tissue of trunk (principal); F41.9 Anxiety disorder, unspecified; F32.A Depression, unspecified; E11.9 Type 2 diabetes mellitus without complications; K21.9 Gastro-esophageal reflux disease without esophagitis; I10 Essential (primary) hypertension; Z90.49 Acquired absence of other specified parts of digestive tract; Z90.710 Acquired absence of both cervix and uterus; Z83.3 Family history of diabetes mellitus; Z82.3 Family history of stroke; Z82.49 Family history of ischemic heart disease and other diseases of the circulatory system; Z88.6 Allergy status to analgesic agent; Z88.2 Allergy status to sulfonamides; Z79.899 Other long term (current) drug therapy
CPT/HCPCS: 11406; 12031; 96374; J2405

== ENCOUNTER 2021-08-01 10:11 | Emergency (ER) | payer OTHER, SELFPAY ==
[2021-08-01 11:40] VITALS: BP 143/74; PULSE 63; RESP 14; TEMP 37.1; O2SAT 95; BMI 26.6
--- NOTE | 2021-08-01 11:54 | HMH.EDUTC ---
[facility] Disposition Clinical Impression: Allergic reaction Qualifiers: Encounter type: initial encounter Qualified Code(s): T78.40XA - Allergy, unspecified, initial encounter Disposition: Home, Self-Care Condition on Discharge: Good Instructions: DI for General Allergic Reactions Additional Instructions: Try to avoid contact with the offending substance. Don't start the oral steroids until tomorrow. Take the benedryl (diphenhydramine) as regularly as you can for the next few days. It will make you drowsy, so don't drive after taking it. Follow up with your regular doctor. GO TO THE ER FOR ANY WORSENING SYMPTOMS OR CONCERNS Prescriptions: diphenhydrAMINE HCL [Diphenhydramine HCl] 25 mg PO Q6HP PRN #30 cap PRN Reason: Itching Transmission Status: Received by [id number] methylPREDNISolone [Medrol] 4 mg PO DIRECTED 6 Days #21 packet Transmission Status: Received by [id number] Famotidine [Pepcid 20mg Tablet] 20 mg PO BID 14 Days #28 tab Transmission Status: Received by [id number] Referrals: Jay Cooper [Primary Care Provider] - Time of Disposition: 12:31 Medical Decision Making - Medical Records Medical records reviewed: No: I reviewed the patient's medical records. - [place] Inquiry Pt receiving controlled substance: No Vital Signs: 08/01/21 11:40 08/01/21 12:47 Temperature 98.7 F 98.7 F Temperature Source Oral Pulse Rate 63 Pulse Rate [Left] 63 Respiratory Rate 14 14 Blood Pressure 143/74 H Blood Pressure [Right Arm] 143/74 H Blood Pressure Mean [Right Arm] 97 02 Sat by Pulse Oximetry 95 Orders (Tests/Meds): ED MEDICATIONS Discontinued Medications Generic Name Dose Route Start Last Admin Trade Name Freq PRN Reason Stop Dose Admin Methylprednisolone Sodium Succinate 125 mg 08/01/21 12:18 08/01/21 12:23 Methylprednisolone Sod Succ 125mg Vial IM 08/01/21 12:19 125 mg ONCE ONE Administration [facility] HPI - General Stated complaint: rash Time Seen by Provider: 08/01/21 11:54 Mode of Arrival: Ambulatory Source of Information: Patient Limitations: No Limitations Description of Symptoms (Recalled from Triage Doc. by RN): pt c/o a rash on her forehead, abd and back since last night. HEENT Symptoms (Recalled from RN notes): No Resp Symptoms (Recalled from RN notes): No Skin Symptoms (Recalled from RN notes): Yes MS Symptoms (Recalled from RN notes): No Functional Status (Recalled from RN notes): wnl - History of Present Illness Provider Complaint: She has a rash on her abdomen, back and anterior neck. - Related Data Home Medications Medication Instructions Recorded Confirmed escitalopram oxalate 10 mg tablet 10 mg PO DAILY 90 Days tab 11/22/17 07/27/21 atorvastatin 10 mg tablet 10 mg PO DAILY 04/15/19 07/27/21 celecoxib 100 mg capsule 100 mg PO BID cap 07/08/21 07/27/21 pantoprazole 40 mg tablet,delayed 40 mg PO DAILY tab 07/08/21 07/27/21 release pramipexole 0.125 mg tablet 0.125 mg PO DAILY tab 07/08/21 07/27/21 Ascorbic Acid [Vitamin C] 500 mg PO DAILY 07/27/21 07/27/21 Cholecalciferol (Vitamin D3) 2,000 unit PO DAILY 07/27/21 07/27/21 [Vitamin D3] Cyanocobalamin (Vitamin B-12) 1,000 mcg PO DAILY 07/27/21 07/27/21 [Vitamin B-12 1000mcg Tablet] Previous Rx's Medication Instructions Recorded Hydrocod/Acet 5/325 mg [[place] 1 - 2 tab PO Q6HP PRN #9 tab 07/30/21 5/325mg tablet] Famotidine [Pepcid 20mg Tablet] 20 mg PO BID 14 Days #28 tab 08/01/21 diphenhydrAMINE HCL 25 mg PO Q6HP PRN #30 cap 08/01/21 [Diphenhydramine HCl] methylPREDNISolone [Medrol] 4 mg PO DIRECTED 6 Days #21 08/01/21 packet Allergies Allergy/AdvReac Type Severity Reaction Status Date / Time acetaminophen [From Percocet] AdvReac Mild NA-NAUSEA Verified 07/27/21 09:39 aspirin AdvReac Mild NA-NAUSEA Verified 07/27/21 09:39 codeine AdvReac Mild NA-NAUSEA Verified 07/27/21 09:39 oxycodone [From Percocet] AdvRe
[2021-08-01 12:47] VITALS: BP 143/74; PULSE 63; RESP 14; TEMP 37.1
== END 2021-08-01 12:48 | disposition home or self-care (01) ==
PROVIDERS: Emergency Provider Nurse Practitioner Family; PCP Family Medicine
DX: T78.40XA Allergy, unspecified, initial encounter (principal)
CPT/HCPCS: 96372; 99202; G0463

== ENCOUNTER → 2021-09-18 06:59 | Outpatient (CLI) | payer OTHER, SELFPAY ==
[2021-09-18 07:05] LABS: Adenovirus F 40/41, stool Not Detected (NotDetected); Astrovirus Not Detected (NotDetected); Campylobacter Not Detected (NotDetected); Clostridium Difficile A/B, PCR Not Detected (NotDetected); Cryptosporidium Not Detected (NotDetected); Cyclospora Cayetanesis Not Detected (NotDetected); Entamoeba histolytica Not Detected (NotDetected); Enteroaggregative E coli Not Detected (NotDetected); Enteropathogenic E coli Not Detected (NotDetected); Enterotoxigenic E coli Not Detected (NotDetected); Giardia lamblia Not Detected (NotDetected); Norovirus Not Detected (NotDetected); Plesimonas Shigalloides, PCR Not Detected (NotDetected); Rotavirus A Not Detected (NotDetected); Salmonella, PCR Not Detected (NotDetected); Sapovirus Not Detected (NotDetected); Shiga-like toxin E coli Not Detected (NotDetected); Shigella Enterovasive E coli Not Detected (NotDetected); Vibrio Cholerae Not Detected (NotDetected); Vibrio, PCR Not Detected (NotDetected); Yersinia Entercolitica, PCR Not Detected (NotDetected)
[2021-09-18 07:17] LABS: Basophils # 0.1 K/mm3 (0-0.2); Basophils % 2.3 % (0.1-2.0); Eosinophils # 0.2 K/mm3 (0.0-0.4); Eosinophils % 3.7 % (0.1-12.0); Hematocrit 41.7 % (37.0-47.0); Lymphocytes # 1.5 K/mm3 (0.7-4.5); Lymphocytes % 30.3 % (10-50); Mean Corpuscular HGB Conc 33.5 g/dL (31.8-35.4); Mean Corpuscular Hemoglobin 30.5 pg (27.0-31.2); Mean Corpuscular Volume 91.1 fl (81-99); Mean Platelet Volume 9.4 fl (7.4-10.4); Monocytes # 0.3 K/mm3 (0.1-1.0); Monocytes % 5.5 % (1.7-9.3); Neutrophils # 2.9 K/mm3 (1.8-7.8); Neutrophils % 58.3 % (37.0-80.0); Platelet Count 210 K/mm3 (142-424); Red Blood Count 4.57 M/mm3 (4.20-5.40); Red Cell Distribution Width 14.2 % (11.5-17.5)
[2021-09-18 07:42] LABS: Erythrocyte Sedimentation Rate 15 mm/hr (0-30)
[2021-09-18 07:59] LABS: Chloride 103 mmol/L (98-107); Potassium 4.7 mmoL/L (3.5-5.1); Sodium 138 mmol/L (136-145)
[2021-09-18 08:02] LABS: Alanine Aminotransferase 22 U/L (12-78); Albumin Level 4.2 g/dl (3.5-5.0); Albumin/Globulin Ratio 1.7 (1.1-1.8); Alkaline Phosphatase 97 U/L (38-126); Anion Gap 11.7 mEq/L (5-15); Aspartate Amino Transferase 25 U/L (14-36); Bilirubin,Total 0.8 mg/dl (0.2-1.3); Blood Urea Nitrogen 25 mg/dl (7-17); Carbon Dioxide 28 mmol/L (22.0-30.0); Cholesterol 152 mg/dl (140-200); Estimated Glomerular Filt Rate 64 ml/min (>60); GFR (African American) 78 ML/MIN (>60); Globulin 2.5 g/dL (1.3-3.2); Total Protein,Serum 6.7 g/dl (6.3-8.2); Triglycerides 103 mg/dl (30-150); VLDL Cholesterol 21 mg/dL (0-40)
[2021-09-18 08:03] LABS: Calcium 8.8 mg/dl (8.4-10.2); Glucose 110 mg/dl (74-100); HDL Cholesterol 50 mg/dl (40-60)
[2021-09-18 08:08] LABS: C-Reactive Protein 0.7 mg/L (0-4)
[2021-09-18 08:13] LABS: Direct LDL Cholesterol 68.14 mg/dL (100-129)
[2021-09-18 08:36] LABS: Thyroid Stimulating Hormone 3.41 uIU/mL (0.465-4.68)
[2021-09-18 08:44] LABS: Uric Acid 4.9 mg/dl (2.5-6.2)
[2021-09-25 21:39] LABS: Antinuclear Antibodies, IFA POSITIVE
== END ==
PROVIDERS: Visit Provider Family Medicine
DX: M25.50 Pain in unspecified joint (principal); E78.5 Hyperlipidemia, unspecified; R19.7 Diarrhea, unspecified
CPT/HCPCS: 36415; 80053; 80061; 83036; 84443; 84550; 85025; 85651; 86038; 86140; 86431; 87507

== ENCOUNTER → 2021-10-24 08:06 | Outpatient (CLI) | payer OTHER, SELFPAY | PROVIDERS: Visit Provider Surgery | DX: Z01.812 Encounter for preprocedural laboratory examination (principal); Z20.822 Contact with and (suspected) exposure to COVID-19; Z12.11 Encounter for screening for malignant neoplasm of colon | CPT/HCPCS: C9803; U0003; U0005 ==

== ENCOUNTER 2021-10-27 10:28 | Day surgery (SDC) | payer OTHER, SELFPAY ==
[2021-10-23 12:21] VITALS: BMI 26.6
[2021-10-27 10:40] VITALS: BP 130/85; PULSE 67; RESP 18; TEMP 37.1; O2SAT 98
[2021-10-27 11:31] VITALS: O2SAT 98
--- NOTE | 2021-10-27 11:46 | P.PN_ITS ---
[facility] Anesthesia Checklist - Structural Data Admitted From: Home Planned Operative Procedure/s: colonoscopy Consent for Planned Operative Procedure(s) Verified: Yes - Additional verifications Anesthesia Reactions: No Hx Blood Transfusions: No Blood Transfusion Reaction: No - Airway Assessment C-Spine Mobility Assessed: Yes TMJ Mobility Assessed: Yes Dentition: Good Dentition - Neurological Assessment Level of Consciousness: Awake, Alert, Appropriate - Anesthesia Plan Anesthesia Risk discussed: Yes Anesthesia Plan: Verified ASA Class: II Anesthesia Type: MAC [facility] History I have reviewed the patient's past medical history: Yes Medical History: Reports:: Anxiety, Depression, Gastroesophageal Reflux Disease(GERD), Hyperlipidemia, Hypertension Denies:: Cancer, Diabetes Mellitus Type 1, Diabetes Mellitus Type 2, Internal Pacemaker, MRSA, Seizures *Have you ever received a pneumonia vaccine?: No *Have you received a flu vaccine this season?: Yes Other Medical History: Reports: Other. Denies: Blood Transfusion Reaction Anesthesia experience/problems:: none Laterality Cases: Right: Carpal Tunnel Release Other Surgeries: Yes: Cholecystectomy, Colonoscopy, Hysterectomy-Partial. No: Pacemaker Amputation: No Fractures: No - *Social History Last grade of school completed: High school graduate Smoking Status: Never smoker Alcohol Intake: current Alcohol Intake Frequency:: a few times a month Substance Use Type: denies use *Occupational Status:: employed Housing: house Household Members: spouse *Travel in the last 8 weeks: None - Psychiatric History Pschychiatric History:: Reports:: Anxiety, Depression Family Hx:: Diabetes, Heart Attack, Hypertension
--- NOTE | 2021-10-27 12:06 | P.PCN_ITS ---
- Procedure: Date: 10/27/21 Patient Date of :: 1965 Procedure Performed:: Colonoscopy Indications:: History of colon polyps Performing Provider:: Jaylen Aguilera MD Referring Provider:: . Sedation:: Monitored anesthesia care Procedure:: After informed consent was obtained the patient was taken to the endoscopy suite. Sedation ensued after the patient was transferred to the left lateral decubitus position. Pulse, blood pressure, and oxygen saturation were monitored throughout the procedure. Digital rectal exam revealed no significant abnor mality. The colonoscope was placed in position. The entire colon was evaluated. The colonoscope was carefully removed and the patient was transferred to recovery in stable condition. Please see findings and specimens below for detail. Findings:: Bowel preparation moderate Scattered diverticulosis (mostly in sigmoid) Fairly severe tortuosity of sigmoid colon Specimens:: None Recommendations:: Barium enema in relatively near future would be beneficial secondary to limitations in visualization due to tortuosity of sigmoid colon. Repeat colonoscopy in 3-5 years (pending barium enema). Complications:: No immediate Estimated blood obtained (mL): 0
[2021-10-27 12:10] VITALS: BP 125/75; PULSE 76; RESP 16; TEMP 36.2; O2SAT 98
[2021-10-27 12:20] VITALS: BP 111/71; PULSE 77; RESP 16; O2SAT 98
[2021-10-27 12:30] VITALS: BP 123/59; PULSE 73; RESP 16; O2SAT 100
[2021-10-27 12:40] VITALS: BP 102/68; PULSE 67; RESP 16; O2SAT 100
== END 2021-10-27 12:46 | disposition home or self-care (01) ==
LOC: OUTP 10:29
PROVIDERS: PCP Family Medicine; Visit Provider Surgery
PROC: 0DJD8ZZ Inspection of Lower Intestinal Tract, Via Natural or Artificial Opening Endoscopic (ICD-10-PCS; CPT 45378; principal; 2021-10-27 11:30)
DX: Z12.11 Encounter for screening for malignant neoplasm of colon (principal); Z86.010 Personal history of colon polyps; K57.30 Diverticulosis of large intestine without perforation or abscess without bleeding; K56.2 Volvulus; F41.9 Anxiety disorder, unspecified; F32.A Depression, unspecified; K21.9 Gastro-esophageal reflux disease without esophagitis; E78.5 Hyperlipidemia, unspecified; I10 Essential (primary) hypertension; Z83.3 Family history of diabetes mellitus; Z82.3 Family history of stroke; Z82.49 Family history of ischemic heart disease and other diseases of the circulatory system
CPT/HCPCS: 45378

== ENCOUNTER → 2021-11-11 09:46 | Outpatient (CLI) | payer OTHER, SELFPAY ==
--- NOTE | 2021-11-11 09:46 | FL_ITS ---
FINAL REPORT CLINICAL HISTORY: 3.09 fluoro time torturous colon poor clean out on colonoscopy FINDINGS: BARIUM ENEMA HISTORY: Incomplete colonoscopy. PROCEDURE: Single-contrast barium was introduced by gravity drip. Spot and overhead films were obtained. FINDINGS: [address] Ct film is unremarkable. Retained stool limits mucosal detail. No constricting or obstructing lesions are identified to the level of the cecum. there is sigmoid diverticulosis. The appendix fills with contrast. IMPRESSION: No constricting or obstructing lesions to the level of the cecum. Sigmoid diverticulosis. FLUOROSCOPY TIME: 3 minutes 9 seconds Reviewed, Interpreted and Dictated by Giuseppe Flores III, MD Transcribed by ELODIA Narayan Authenticated and [facility]
== END ==
PROVIDERS: PCP Family Medicine; Visit Provider Surgery
DX: R93.3 Abnormal findings on diagnostic imaging of other parts of digestive tract (principal)
CPT/HCPCS: 74270

== ENCOUNTER 2021-12-11 08:38 | Emergency (ER) | payer OTHER, SELFPAY ==
[2021-12-11 08:40] VITALS: BP 128/91; PULSE 77; RESP 18; TEMP 36.6; O2SAT 97; BMI 26.9
[2021-12-11 08:58] LABS: Apearance,Urine Clear (Clear); Color,Urine Dark Yellow (Yellow); PH,Urine 5.5 (5.0-8.5)
[2021-12-11 08:59] LABS: Bilirubin,Urine Negative (Negative); Blood, Urine 2+ (Negative); Glucose,Urine (UA) 100 (Negative); Ketones,Urine Negative (Negative); Protein,Urine 1+ (Negative); UTC Leukocyte Esterase,Urine Negative (Negative); UTC Nitrate,Urine Negative (Negative); Urobilinogen,Urine 0.2 EU/dl (0.2)
--- NOTE | 2021-12-11 09:02 | HMH.EDUTC ---
[facility] Disposition Clinical Impression: Hives Low back pain Qualifiers: Chronicity: unspecified Back pain laterality: unspecified Sciatica presence: unspecified whether sciatica present Qualified Code(s): M54.50 - Low back pain, unspecified Disposition: Home, Self-Care Condition on Discharge: Good Instructions: Low Back Pain, DI for Low Back Pain, DI for Hives Additional Instructions: *Over the counter Ibuprofen fior 6 hours with meal as needed for pain/inflammation if you can take it *Not additional anti-inflammatory like motrin, aleve, advil with the above amount of ibuprofen. You can still take Tylenol every 4 hours as needed if you need something else for pain *Ice 20 minutes every 2 hours for the first 48 hours after the initial injury followed by moist heat every 20 minutes 3-4 times a day to affected area *Muscle relaxer every 12 hours as needed for muscle spasms but remember, it WILL cause drowsiness You cannot take it and drive, operate machinery or care for small children. *Keep this area active, no movement leads to more stiffness, However take it easy and avoid heavy lifting pushing or pulling *Follow up with you family doctor if no improvement for further treatment Over the counter Benadryl may help with itching Start oral steriods tomorrow May take Over the counter Claritan may help with reaction Make sure that you are drinking plenty of fluids Follow up immediately if no improvement or any worsening of symptoms Prescriptions: diphenhydrAMINE HCL [Benadryl 25mg Capsule] 25 mg PO Q6HP PRN #30 cap PRN Reason: Itching Transmission Status: Received by [facility] methylPREDNISolone [Medrol 4mg tab] 4 mg PO DIRECTED #21 tab Transmission Status: Received by [facility] methocarbamoL [Methocarbamol] 750 mg PO BID PRN #20 tab PRN Reason: Muscle Spasm Transmission Status: Received by [facility] Referrals: German Cruz MD [Primary Care Provider] - As needed Forms: Work/School Release Time of Disposition: 09:33 Medical Decision Making - [place] Inquiry Pt receiving controlled substance: No [place] was queried for this patient: No Vital Signs: 12/11/21 08:40 12/11/21 09:16 Temperature 97.9 F 97.9 F Temperature Source Oral Pulse Rate 77 Pulse Rate [Left Brachial] 77 Respiratory Rate 18 18 Blood Pressure 128/91 H Blood Pressure [Left Arm] 128/91 H Blood Pressure Mean [Left Arm] 103 Blood Pressure Source [Left Arm] Automatic Cuff Blood Pressure Position [Left Arm] Sitting 02 Sat by Pulse Oximetry 97 Oxygen Delivery Method Room Air - Lab Data Lab results reviewed: Yes: I reviewed the patient's lab results. Lab Results 12/11/21 08:58: Urine Color Dark yellow, Urine Appearance Clear, Urine pH 5.5, Ur Specific [place] 1.030, Urine Protein 1+, Urine Glucose (UA) 100, Urine Ketones Negative, Urine Blood 2+, Urine Nitrate Negative, Urine Bilirubin Negative, Urine Urobilinogen 0.2, Ur Leukocyte Esterase Negative Orders (Tests/Meds): ED MEDICATIONS Discontinued Medications Generic Name Dose Route Start Last Admin Trade Name Freq PRN Reason Stop Dose Admin Methylprednisolone Sodium Succinate 125 mg 12/11/21 09:07 12/11/21 09:10 Methylprednisolone Sod Succ 125mg Vial IM 12/11/21 09:08 125 mg ONCE ONE Administration Medical Decision Narrative: Patient had large blood in urine and having pain/spasms in her back Patient advised that she has always had blood in her urine and has a history of kidney stones but this does not feel like that feels like it does when her lower back acts up and has spasms Discussed with patient about transfer to the ED for further work up to r/o kidney stones and she declined Discussed xray of Lower back and she declined states that she just had one a few months back States that feels like it does when her lower back acts up Patient also educated that she needs to be drinking plenty of water
[2021-12-11 09:16] VITALS: BP 128/91; PULSE 77; RESP 18; TEMP 36.6; O2SAT 97
== END 2021-12-11 09:39 | disposition home or self-care (01) ==
PROVIDERS: Emergency Provider Nurse Practitioner; PCP Family Medicine
DX: M54.50 Low back pain, unspecified (principal); M62.838 Other muscle spasm; L50.9 Urticaria, unspecified; R21 Rash and other nonspecific skin eruption; I10 Essential (primary) hypertension; K21.9 Gastro-esophageal reflux disease without esophagitis; G25.81 Restless legs syndrome; E78.5 Hyperlipidemia, unspecified; F32.A Depression, unspecified; F41.9 Anxiety disorder, unspecified; Z79.52 Long term (current) use of systemic steroids; Z88.2 Allergy status to sulfonamides; Z88.5 Allergy status to narcotic agent; Z88.6 Allergy status to analgesic agent; Z88.8 Allergy status to other drugs, medicaments and biological substances; Z82.49 Family history of ischemic heart disease and other diseases of the circulatory system; Z83.3 Family history of diabetes mellitus; Z82.5 Family history of asthma and other chronic lower respiratory diseases; Z87.442 Personal history of urinary calculi; Z87.898 Personal history of other specified conditions
CPT/HCPCS: 81003; 96372; 99213; G0463

== ENCOUNTER → 2021-12-23 08:07 | Outpatient (CLI) | payer OTHER, SELFPAY ==
[2021-12-23 08:39] LABS: Basophils # 0.1 K/mm3 (0-0.2); Basophils % 0.7 % (0.1-2.0); Eosinophils # 0.3 K/mm3 (0.0-0.4); Eosinophils % 4.2 % (0.1-12.0); Hematocrit 39.4 % (37.0-47.0); Hemoglobin 13.3 g/dL (12.2-16.2); Lymphocytes # 1.8 K/mm3 (0.7-4.5); Lymphocytes % 26.7 % (10-50); Mean Corpuscular HGB Conc 33.7 g/dL (31.8-35.4); Mean Corpuscular Hemoglobin 30.2 pg (27.0-31.2); Mean Corpuscular Volume 89.8 fl (81-99); Mean Platelet Volume 7.6 fl (7.4-10.4); Monocytes # 0.3 K/mm3 (0.1-1.0); Monocytes % 3.7 % (1.7-9.3); Neutrophils # 4.3 K/mm3 (1.8-7.8); Neutrophils % 64.7 % (37.0-80.0); Platelet Count 250 K/mm3 (142-424); Red Blood Count 4.39 M/mm3 (4.20-5.40); Red Cell Distribution Width 15.2 % (11.5-17.5); White Blood Count 6.7 K/mm3 (4.8-10.8)
[2021-12-23 09:34] LABS: Alanine Aminotransferase 29 U/L (12-78); Albumin Level 3.8 g/dl (3.5-5.0); Albumin/Globulin Ratio 1.5 (1.1-1.8); Alkaline Phosphatase 107 U/L (38-126); Anion Gap 9.7 mEq/L (5-15); Aspartate Amino Transferase 26 U/L (14-36); Bilirubin,Total 0.4 mg/dl (0.2-1.3); Blood Urea Nitrogen 25 mg/dl (7-17); Calcium 9.5 mg/dl (8.4-10.2); Carbon Dioxide 30 mmol/L (22.0-30.0); Chloride 100 mmol/L (98-107); Estimated Glomerular Filt Rate 64 ml/min (>60); GFR (African American) 78 ML/MIN (>60); Globulin 2.6 g/dL (1.3-3.2); Glucose 108 mg/dl (74-100); Potassium 4.7 mmoL/L (3.5-5.1); Sodium 135 mmol/L (136-145); Total Protein,Serum 6.4 g/dl (6.3-8.2)
== END ==
PROVIDERS: PCP Family Medicine; Visit Provider Internal Medicine
DX: M06.9 Rheumatoid arthritis, unspecified (principal); Z79.899 Other long term (current) drug therapy
CPT/HCPCS: 36415; 80053; 85025

== ENCOUNTER → 2022-02-22 15:40 | Outpatient (CLI) | payer OTHER, SELFPAY ==
--- NOTE | 2022-02-22 15:43 | MM_ITS ---
PROCEDURE INFORMATION: Exam: MG Bilateral Screening 3D Mammography Exam date and time: 02/22/2022 3:48 PM Age: 57 years old Clinical indication: Screening examination. History of benign right excisional biopsy. Paternal aunt had breast cancer. TECHNIQUE: Imaging protocol: Bilateral Screening tomosynthesis and 2D mammography including computer-aided detection (CAD) when performed. COMPARISON: 1. MG MM DIG SCREENING MAMM BI W/CAD 02/16/2021 8:22 AM 2. MG MM DIG SCREENING MAMM BI W/CAD 07/25/2020 2:14 PM 3. MG MM DIG MAMM DX UNILAT RT CAD 02/06/2020 2:33 PM 4. MG MM DIG MAMM DX UNILAT RT CAD 07/30/2019 2:41 PM FINDINGS: MAMMOGRAPHY: Breast composition: There are scattered areas of fibroglandular density. Mass: None. Architectural distortion: None. Calcifications: No suspicious calcifications. Asymmetric density: None. Skin thickening: None. Axillary adenopathy: None. IMPRESSION: No mammographic evidence of malignancy. Annual screening is recommended unless otherwise clinically indicated. ASSESSMENT: BI-RADS Category 1: Negative
== END ==
PROVIDERS: PCP Family Medicine; Visit Provider Family Medicine
DX: Z12.31 Encounter for screening mammogram for malignant neoplasm of breast (principal)
CPT/HCPCS: 77063; 77067

== ENCOUNTER → 2022-03-23 15:43 | Outpatient (CLI) | payer OTHER, SELFPAY ==
--- NOTE | 2022-03-23 15:48 | XR_ITS ---
FINAL REPORT CLINICAL HISTORY: chest tightness COMPARISON: 10/30/2021 FINDINGS: TWO-VIEW CHEST The heart size is normal. The mediastinum is normal. There is mild right base atelectasis or scar. There is no pneumothorax. IMPRESSION: Right base atelectasis or scar. Reviewed, Interpreted and Dictated by Giuseppe Flores III, MD Transcribed by Hyun Palacios Authenticated and [facility]
== END ==
PROVIDERS: PCP Family Medicine; Visit Provider Family Medicine
DX: R05.3 Chronic cough (principal)
CPT/HCPCS: 71046

== ENCOUNTER → 2022-05-17 17:25 | Outpatient (CLI) | payer OTHER, SELFPAY | PROVIDERS: PCP Family Medicine; Visit Provider Nurse Practitioner Family | DX: G47.33 Obstructive sleep apnea (adult) (pediatric) (principal); R06.83 Snoring; G47.19 Other hypersomnia; G47.8 Other sleep disorders; G25.81 Restless legs syndrome; Z68.28 Body mass index [BMI] 28.0-28.9, adult | CPT/HCPCS: 95806 ==

== ENCOUNTER → 2022-05-18 12:49 | Outpatient (CLI) | payer OTHER, SELFPAY ==
[2022-05-18 14:26] LABS: Ferritin 135 ng/ml (11.1-264)
== END ==
PROVIDERS: PCP Family Medicine; Visit Provider Nurse Practitioner Family
DX: E83.10 Disorder of iron metabolism, unspecified (principal); G25.81 Restless legs syndrome
CPT/HCPCS: 36415; 82728

== ENCOUNTER → 2022-08-10 15:08 | Outpatient (CLI) | payer OTHER, SELFPAY ==
[2022-08-10 15:42] LABS: Basophils # 0.1 K/mm3 (0-0.2); Basophils % 1.1 % (0.1-2.0); Eosinophils # 0.3 K/mm3 (0.0-0.4); Eosinophils % 3.9 % (0.1-12.0); Hematocrit 38.7 % (37.0-47.0); Hemoglobin 12.4 g/dL (12.2-16.2); Lymphocytes # 1.8 K/mm3 (0.7-4.5); Lymphocytes % 24.3 % (10-50); Mean Corpuscular HGB Conc 32.1 g/dL (31.8-35.4); Mean Corpuscular Hemoglobin 30.6 pg (27.0-31.2); Mean Corpuscular Volume 95.3 fl (81-99); Mean Platelet Volume 8.2 fl (7.4-10.4); Monocytes # 0.3 K/mm3 (0.1-1.0); Monocytes % 3.5 % (1.7-9.3); Neutrophils # 4.9 K/mm3 (1.8-7.8); Neutrophils % 67.1 % (37.0-80.0); Platelet Count 268 K/mm3 (142-424); Red Blood Count 4.06 M/mm3 (4.20-5.40); Red Cell Distribution Width 15.3 % (11.5-17.5); White Blood Count 7.4 K/mm3 (4.8-10.8)
[2022-08-10 17:40] LABS: Alanine Aminotransferase 27 U/L (12-78); Albumin Level 4.1 g/dl (3.5-5.0); Albumin/Globulin Ratio 1.7 (1.1-1.8); Alkaline Phosphatase 107 U/L (38-126); Aspartate Amino Transferase 26 U/L (14-36); Bilirubin,Total 0.4 mg/dl (0.2-1.3); Blood Urea Nitrogen 21 mg/dl (7-17); Calcium 9.2 mg/dl (8.4-10.2); Carbon Dioxide 32 mmol/L (22.0-30.0); Chloride 104 mmol/L (98-107); Estimated Glomerular Filt Rate 57 ml/min (>60); GFR (African American) 69 ML/MIN (>60); Globulin 2.4 g/dL (1.3-3.2); Glucose 103 mg/dl (74-100); Total Protein,Serum 6.5 g/dl (6.3-8.2)
[2022-08-10 18:46] LABS: Vitamin B12 732 pg/mL (239-931)
[2022-08-10 20:18] LABS: Sodium 138 mmol/L (136-145)
[2022-08-10 20:21] LABS: Hemoglobin A1C 5.6 % (4.0-6.0)
[2022-08-21 18:08] LABS: 1,25 Dihydroxy Vitamin D 31 pg/mL (.); 1,25-Dihydroxy, Vitamin D-2 <10 pg/mL (.); 1,25-Dihydroxy, Vitamin D-3 28 pg/mL (.)
== END ==
PROVIDERS: PCP Family Medicine; Visit Provider Nurse Practitioner Family
DX: R53.83 Other fatigue (principal); R73.9 Hyperglycemia, unspecified; G47.19 Other hypersomnia; G47.33 Obstructive sleep apnea (adult) (pediatric)
CPT/HCPCS: 36415; 80053; 82607; 82652; 82746; 83036; 84443; 85025; 94762

== ENCOUNTER 2022-08-20 12:09 | Emergency (ER) | payer OTHER, SELFPAY ==
[2022-08-20] VITALS (8 sets, daily range): BP systolic 96–121; BP diastolic 54–75; PULSE 65–76; RESP 16; TEMP 36.5–36.9; O2SAT 96–100; BMI 28.3
--- NOTE | 2022-08-20 12:12 | PC.NURSE ---
pt ambulatory to restroom without complications
--- NOTE | 2022-08-20 12:16 | PC.NURSE ---
UA sent to lab; pt hooked up to monitor and call light within reach. Warm blanket given
[2022-08-20 12:19] LABS: Microscopic, Urine URINE MICROSCOPIC (MICROSCOPIC)
[2022-08-20 12:29] LABS: Appearance,Urine CLEAR (Clear); Bilirubin,Urine Negative (Negative); Blood, Urine 2+ (Negative); Color,Urine YELLOW (Yellow); Glucose,Urine (UA) Negative (Negative); Ketones,Urine TRACE (Negative); Leukocyte Esterase,Urine TRACE (Negative); Nitrate,Urine Negative (Negative); Protein,Urine Negative (Negative)
--- NOTE | 2022-08-20 12:30 | HMH.EDGENADL ---
Discharge Plan Disposition Patient Disposition: Home, Self-Care Condition: Good Prescriptions Prescriptions: No Action atorvastatin 10 mg tablet 10 mg PO DAILY celecoxib 100 mg capsule 100 mg PO BID pantoprazole 40 mg tablet,delayed release (DR/EC) 40 mg PO DAILY pramipexole 0.125 mg tablet 0.375 mg PO HS escitalopram oxalate 20 mg tablet 20 mg PO DAILY pregabalin 75 mg capsule 75 mg PO BID phentermine 37.5 mg tablet 37.5 mg PO DAILY methotrexate sodium 2.5 mg tablet 20 mg PO WEEKLY folic acid 1 mg tablet 1 mg PO DAILY donepezil 10 mg tablet 10 mg PO DAILY pregabalin 100 mg capsule 100 mg PO BID celecoxib 200 mg capsule 200 mg PO BID cholecalciferol (vitamin D3) 50 MCG tablet 2,000 unit PO DAILY famotidine 20 MG tablet 20 mg PO BID methocarbamol 750 MG tablet 750 mg PO BID PRN (Reason: Muscle Spasm) Qty: 20 0RF Referrals Follow up/Referrals: German Cruz MD [Primary Care Provider] - See instructions Activity Restrictions/Add. Instructions Additional Instructions/Restrictions: Continue Zofran as needed for nausea. Rest and drink plenty of fluids. Additional instructions for VOMITING/DIARRHEA: See your physician as soon as possible for further evaluation. Drink plenty of fluids. Return immediately if severe abdominal pain, uncontrollable vomiting, shortness of breath, fever, bloody diarrhea, vomiting of blood or abdominal distention. Clinical Impressions Clinical Impression: Acute gastroenteritis, Acute dehydration Instructions Patient Instructions: DI for Viral Gastroenteritis -- Adult, DI for Dehydration -- Adult Discharge ED Provider: Tho Garcia Adult HPI General Chief complaint: Weakness Stated complaint: vomiting,diarrhea, possible dehydrated Time Seen by Provider: 08/20/22 12:23 Mode of Arrival: Ambulatory Source of Information: Patient Limitations: No Limitations Description of Symptoms (Recalled from ER Triage Doc. by RN): Presents with general fatigue due to n/v/d x few days. 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 Pt states she saw PCP on Tue and was diagnosed with GI virus and given Rx Zofran. History of Present Illness HPI narrative: Patient states that she thinks she is dehydrated. She states she has been sick all week with nausea, vomiting, and diarrhea. Initially was having diarrhea all day long, she estimates greater than 10 bowel movements per day. No blood noted. She says the diarrhea has slowed down and now she is only having a couple episodes per day for the past 2 days. She had some abdominal pain initially, but now says her stomach just feels nauseated. Denies fever. 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 She saw her primary care provider on Tuesday and was diagnosed with a gastrointestinal virus. She has had a prior vaginal hysterectomy. Related Data Home Medications Medication Instructions Recorded Confirmed atorvastatin 10 mg tablet 10 mg PO DAILY Cholesterol 04/15/19 08/05/22 celecoxib 100 mg capsule 100 mg PO BID Pain 07/08/21 08/05/22 pantoprazole 40 mg tablet,delayed 40 mg PO DAILY GERD 07/08/21 08/05/22 release cholecalciferol (vitamin D3) 50 2,000 unit PO DAILY Supplement 07/27/21 08/05/22 mcg (2,000 unit) tablet famotidine 20 mg tablet 20 mg PO BID acid reflux 10/23/21 08/05/22 donepezil 10 mg tablet 10 mg PO DAILY 06/09/22 08/05/22 escitalopram oxalate 20 mg tablet 20 mg PO DAILY 06/09/22 08/05/22 folic acid 1 mg tablet 1 mg PO DAILY 06/09/22 08/05/22 methotrexate sodium 2.5 mg tablet 20 mg PO WEEKLY 06/09/22 08/05/22 phentermine 37.5 mg tablet 37.5 mg PO DAILY 06/09/22 08/05/22 pramipexole 0.125 mg tablet 0.375 mg PO HS RLS 06/09/22 08/05/22 pregabalin 75 mg capsule 75 mg PO BID 06/09/22 08/05/22 celecoxib 200 mg capsule 200 mg PO BID 08/05/22 08/05/22 pregabalin 100 mg capsule 100 mg PO BID
[2022-08-20 12:38] LABS: Basophils # 0.1 K/mm3 (0-0.2); Basophils % 0.9 % (0.1-2.0); Eosinophils # 0.2 K/mm3 (0.0-0.4); Eosinophils % 3.4 % (0.1-12.0); Hematocrit 40.2 % (37.0-47.0); Hemoglobin 13.3 g/dL (12.2-16.2); Lymphocytes # 1.3 K/mm3 (0.7-4.5); Lymphocytes % 17.9 % (10-50); Mean Corpuscular Volume 93.7 fl (81-99); Mean Platelet Volume 8.4 fl (7.4-10.4); Monocytes # 0.4 K/mm3 (0.1-1.0); Neutrophils # 5.2 K/mm3 (1.8-7.8); Neutrophils % 72.8 % (37.0-80.0); Platelet Count 248 K/mm3 (142-424); Red Blood Count 4.29 M/mm3 (4.20-5.40); Red Cell Distribution Width 15.5 % (11.5-17.5); White Blood Count 7.1 K/mm3 (4.8-10.8)
[2022-08-20 12:42] LABS: Bacteria,Urine Trace /lpf; WBC,Urine Occasional #/hpf (0-3)
--- NOTE | 2022-08-20 12:44 | PC.NURSE ---
Pt updated on plan of care.
[2022-08-20 12:51] LABS: Alanine Aminotransferase 33 U/L (12-78); Albumin Level 3.9 g/dl (3.5-5.0); Albumin/Globulin Ratio 1.5 (1.1-1.8); Alkaline Phosphatase 101 U/L (38-126); Anion Gap 8.7 mEq/L (5-15); Aspartate Amino Transferase 27 U/L (14-36); Bilirubin,Total 0.5 mg/dl (0.2-1.3); Blood Urea Nitrogen 19 mg/dl (7-17); Calcium 8.4 mg/dl (8.4-10.2); Carbon Dioxide 32 mmol/L (22.0-30.0); Chloride 101 mmol/L (98-107); Creatinine Clearance Estimated 82 mL/min (50-200); Estimated Glomerular Filt Rate 64 ml/min (>60); GFR (African American) 78 ML/MIN (>60); Globulin 2.6 g/dL (1.3-3.2); Glucose 105 mg/dl (74-100); Lipase 54 U/L (23-300); Potassium 3.7 mmoL/L (3.5-5.1); Sodium 138 mmol/L (136-145); Total Protein,Serum 6.5 g/dl (6.3-8.2)
--- NOTE | 2022-08-20 13:27 | PC.NURSE ---
No complaints at this time. Pt resting comfortably. Updated on plan of care.
--- NOTE | 2022-08-20 14:23 | PC.NURSE ---
Assisted patient to bathroom.
--- NOTE | 2022-08-20 15:30 | PC.NURSE ---
MITCHELL KNOTT at for update on POC
--- NOTE | 2022-08-20 15:38 | PC.NURSE ---
pt ambulatory to restroom without complications
== END 2022-08-20 15:46 | disposition home or self-care (01) ==
PROVIDERS: Emergency Provider Emergency Medicine; PCP Family Medicine
DX: E86.0 Dehydration (principal); A09 Infectious gastroenteritis and colitis, unspecified
CPT/HCPCS: 80053; 81001; 83690; 85025; 96361; 96374; 99284; 99285; J2405

== ENCOUNTER → 2022-09-09 16:12 | Outpatient (CLI) | payer OTHER, SELFPAY ==
--- NOTE | 2022-09-09 16:18 | XR_ITS ---
FINAL REPORT CLINICAL HISTORY: foot pain COMPARISON: 02/21/2017 FINDINGS: Left foot Three views were obtained. There is no acute fracture or dislocation. There are mild hypertrophic changes of osteoarthritis involving the 1st metatarsophalangeal joint, more evident than previous. Findings probably due to mild osteoarthritis. No soft tissue abnormality is identified. IMPRESSION: Mild osteoarthritis. Reviewed, Interpreted and Dictated by Avtar Carbajal MD Transcribed by Hyun Palacios Authenticated and [facility]
== END ==
PROVIDERS: PCP Family Medicine; Visit Provider Nurse Practitioner Family
DX: M79.672 Pain in left foot (principal)
CPT/HCPCS: 73630

== ENCOUNTER 2022-10-17 16:12 | Emergency (ER) | payer OTHER, SELFPAY ==
--- NOTE | 2022-10-17 16:15 | XR_ITS ---
PROCEDURE INFORMATION: Exam: XR Left Foot Exam date and time: 10/17/2022 4:18 PM Age: 57 years old Clinical indication: Left; Patient HX: Lateral foot pain and into plantar surface 2-3 days; Additional info: Pain, no injury TECHNIQUE: Imaging protocol: Radiologic exam of the left foot. Views: 3 or more views. COMPARISON: CR XR FOOT WT BEARING LT 3V 09/09/2022 4:24 PM FINDINGS: Bones/joints: Mild hallux valgus and bunion and mild degenerative changes of the 1st MTP joint redemonstrated. Small heel spurs. No fracture. No other bony abnormality. Soft tissues: Normal. IMPRESSION: Stable left foot x-ray with no acute abnormality.
--- NOTE | 2022-10-17 16:15 | XR_ITS ---
PROCEDURE INFORMATION: Exam: XR Right Hip Exam date and time: 10/17/2022 4:15 PM Age: 57 years old Clinical indication: Hip pain; Right hip; Patient HX: Pain for a while, worse this week; Additional info: Pain, no injury TECHNIQUE: Imaging protocol: Radiologic exam of the right hip. Views: 2 or 3 views hip with pelvis when performed. COMPARISON: CR XR LUMBAR SPINE 2-3V 05/06/2021 10:25 AM FINDINGS: Bones/joints: A questionable intramedullary lucency of the mid shaft of the right femur only seen on the frog-leg view but not completely included in the field of view of this image. This area not included in field of view of the pelvis or AP view of the right hip. No other bony abnormality. No fracture. Soft tissues: Unremarkable. IMPRESSION: No acute abnormality. Questionable intramedullary lucency of the mid right femur on the frogleg view. This may be artifactual but I can not exclude a true pathologic abnormality. Advise x-ray of the right femur for further assessment.
[2022-10-17 16:30] VITALS: BP 135/75; PULSE 71; RESP 18; TEMP 37; O2SAT 98; BMI 27.4
--- NOTE | 2022-10-17 16:53 | EXP.UTC ---
Discharge Plan Disposition Patient Disposition: Home, Self-Care Condition: Good Prescriptions Prescriptions: New azithromycin [Zithromax Z-Ray] 250 mg tablet See Rx Instructions .ROUTE .COMPLEX 5 Days Qty: 6 0RF Rx Instructions: For 250 mg dose pack: take 500 mg today (day 1), then 250 mg for 4 days (days 2-5) methylprednisolone [Medrol (Ray)] 4 mg tablets,dose pack See Rx Instructions .Route .COMPLEX 6 Days Qty: 21 0RF Rx Instructions: taper pack; No Action atorvastatin 10 mg tablet 10 mg PO DAILY pantoprazole 40 mg tablet,delayed release (DR/EC) 40 mg PO DAILY pramipexole 0.125 mg tablet 0.375 mg PO HS escitalopram oxalate 20 mg tablet 20 mg PO DAILY phentermine 37.5 mg tablet 37.5 mg PO DAILY methotrexate sodium 2.5 mg tablet 20 mg PO WEEKLY folic acid 1 mg tablet 1 mg PO DAILY donepezil 10 mg tablet 10 mg PO DAILY pregabalin 100 mg capsule 100 mg PO BID celecoxib 200 mg capsule 200 mg PO BID modafinil 100 mg tablet 100 mg PO QAM Qty: 30 2RF cholecalciferol (vitamin D3) 50 MCG tablet 2,000 unit PO DAILY famotidine 20 MG tablet 20 mg PO BID methocarbamol 750 MG tablet 750 mg PO BID PRN (Reason: Muscle Spasm) Qty: 20 0RF Referrals Follow up/Referrals: German Cruz MD [Primary Care Provider] - See instructions Airam Hansen DPM [Staff Physician] - See instructions Activity Restrictions/Add. Instructions Additional Instructions/Restrictions: *Monitor Temp, Over the counter Motrin or Tylenol as directed/as needed Tylenol every 4 hours and Motrin every 6 hours (as long as your family doctor has told you that you can take it) for fever or pain. and straight to ER if unable to lower temp less than 101.0 after medication given *Warm salt water gargles may help to soothe the throat *Throat Lozenges? *Warm fluids like tea with honey may help to soothe the throat? *Sleep elevated *Humidifier/Vaporizer Take medication as prescribed Follow up IMMEDIATELY for new or worsening symptoms or no Noticeable improvement over the next 48-72 hours. 911 for difficulty breathing or swallowing. Clinical Impressions Clinical Impression: Sinusitis, Bronchitis Instructions Patient Instructions: Acute Bronchitis, DI for Hip Pain, DI for Sinusitis, Sinusitis, Sinusitis (Alternative Therapy) Discharge ED Provider: Neeta Beebe [facility] [place] General Stated complaint: brittany, RT hip LT foot pain Mode of Arrival: Ambulatory Source of Information: Patient Limitations: No Limitations Time Seen by Provider: 10/17/22 17:05 Description of Symptoms (Recalled from Triage Doc. by RN): PATIENT C/O PRODUCTIVE COUGH, SINUS PRESSURE, PAIN TO SIDE OF LEFT FOOT, AND RIGHT HIP PAIN. NO KNOWN INJURY HEENT Symptoms (Recalled from RN notes): Yes Resp Symptoms (Recalled from RN notes): Yes Skin Symptoms (Recalled from RN notes): No MS Symptoms (Recalled from RN notes): Yes Functional Status (Recalled from RN notes): WNL History of Present Illness Provider Complaint: Patient states that she has been having sinus congestion and pressure and cough that is productive at times States that she has also been having pain in her right hip and it is worse at night when she tries to sleep also having pain in the side of her left foot that will shoot pain and make her almost fall at times Related Data Home Medications Medication Instructions Recorded Confirmed atorvastatin 10 mg tablet 10 mg PO DAILY Cholesterol 04/15/19 09/13/22 pantoprazole 40 mg tablet,delayed 40 mg PO DAILY GERD 07/08/21 09/13/22 release cholecalciferol (vitamin D3) 50 2,000 unit PO DAILY Supplement 07/27/21 09/13/22 mcg (2,000 unit) tablet famotidine 20 mg tablet 20 mg PO BID acid reflux 10/23/21 09/13/22 donepezil 10 mg tablet 10 mg PO DAILY 06/09/22 09/13/22 escitalopram oxalate 20 mg tablet 20 mg PO DAILY 06/09/22 09/13/22 fo
--- NOTE | 2022-10-17 16:57 | XR_ITS ---
PROCEDURE INFORMATION: Exam: XR Right Femur Exam date and time: 10/17/2022 4:59 PM Age: 57 years old Clinical indication: Abnormal findings; Abnormal imaging study; Requested by vrad radiologist. ; Additional info: F/u on hip xray TECHNIQUE: Imaging protocol: Radiologic exam of the right femur. Views: 2 views. COMPARISON: CR XR HIP RT 2-3V W/PELVIS 10/17/2022 4:15 PM FINDINGS: Bones/joints: Unremarkable. No acute fracture. No abnormality identified in the area in question in the mid shaft of the right femur indicating finding on the earlier hip x-ray series was artifactual. Soft tissues: Unremarkable. IMPRESSION: Negative x-ray right femur. Finding noted on earlier hip x-ray felt to be artifactual.
[2022-10-17 18:10] VITALS: BP 135/75; PULSE 71; RESP 18; TEMP 37; O2SAT 98
== END 2022-10-17 18:15 | disposition home or self-care (01) ==
PROVIDERS: Emergency Provider Nurse Practitioner; PCP Family Medicine
DX: J20.9 Acute bronchitis, unspecified (principal); J01.90 Acute sinusitis, unspecified; M25.551 Pain in right hip; M79.672 Pain in left foot; F17.210 Nicotine dependence, cigarettes, uncomplicated; G47.33 Obstructive sleep apnea (adult) (pediatric); K21.9 Gastro-esophageal reflux disease without esophagitis; E78.5 Hyperlipidemia, unspecified
CPT/HCPCS: 73502; 73552; 73630; 99212; 99214; G0463

== ENCOUNTER → 2022-11-17 08:39 | Outpatient (CLI) | payer OTHER, SELFPAY ==
--- NOTE | 2022-11-17 08:44 | MR_ITS ---
FINAL REPORT CLINICAL HISTORY: LATERAL FOOT PAIN FINDINGS: Multiplanar MR imaging of the left foot was performed without contrast. There is a transverse, nondisplaced fracture of the proximal 5th metatarsal with adjacent bone marrow edema. There are mild degenerative changes of the 1st metatarsophalangeal joint. There is posterior tibial and peroneus longus and brevis tenosynovitis. No ligamentous injury is identified. The musculature is intact. The plantar aponeurosis is intact. No soft tissue mass or cyst is identified. IMPRESSION: Nondisplaced fracture of the proximal 5th metatarsal. Tenosynovitis as above. Reviewed, Interpreted and Dictated by Giuseppe Flores III, MD Transcribed by Hyun Palacios Authenticated and [facility]
== END ==
PROVIDERS: PCP Family Medicine; Visit Provider Nurse Practitioner Family
DX: M79.672 Pain in left foot (principal)
CPT/HCPCS: 73718

== ENCOUNTER → 2022-11-26 12:00 | Outpatient (CLI) | payer OTHER, SELFPAY ==
--- NOTE | 2022-11-26 12:03 | XR_ITS ---
FINAL REPORT CLINICAL HISTORY: Lt foot pain, F/U FX COMPARISON: 10/17/2022 FINDINGS: Left foot Three views were obtained. There is a transverse nondisplaced fracture through the base of the 5th metatarsal. There is mild callus formation consistent with healing subacute fracture. There is bony resorption along the fracture line. IMPRESSION: Healing subacute fracture at the base of the 5th metatarsal. Reviewed, Interpreted and Dictated by Avtar Carbajal MD Transcribed by Hyun Palacios Authenticated and [facility]
== END ==
PROVIDERS: PCP Family Medicine; Visit Provider Orthopaedic Surgery
DX: M79.672 Pain in left foot (principal)
CPT/HCPCS: 73630

== ENCOUNTER → 2022-11-26 12:00 | Outpatient (CLI) | payer OTHER, SELFPAY ==
[2022-11-26 14:52] LABS: Calcium 9.4 mg/dl (8.4-10.2)
[2022-11-26 15:07] LABS: 25-OH Vitamin D, Total 52.6 ng/mL (30-100)
[2022-11-28 08:09] LABS: Prealbumin 31 mg/dL (10-36)
== END ==
PROVIDERS: Visit Provider Orthopaedic Surgery
DX: M79.672 Pain in left foot (principal); S92.355G Nondisplaced fracture of fifth metatarsal bone, left foot, subsequent encounter for fracture with delayed healing
CPT/HCPCS: 36415; 82306; 82310; 84134

== ENCOUNTER → 2022-12-17 10:57 | Outpatient (CLI) | payer OTHER, SELFPAY ==
--- NOTE | 2022-12-17 11:00 | XR_ITS ---
FINAL REPORT CLINICAL HISTORY: lt foot pain, NO KNOWN INJURY COMPARISON: 11/26/2022 FINDINGS: LEFT FOOT: Three views of the left foot were obtained. There is a subacute fracture of the proximal fifth metatarsal without significant callus formation. There is mild degenerative change of the first MTP. There is mild hallux valgus deformity. There is no soft tissue abnormality. IMPRESSION: Subacute fracture proximal fifth metatarsal without significant callus formation. Reviewed, Interpreted and Dictated by Giuseppe Flores III, MD Transcribed by Iesha Berry Authenticated and [facility]
== END ==
PROVIDERS: PCP Family Medicine; Visit Provider Orthopaedic Surgery
DX: S92.355G Nondisplaced fracture of fifth metatarsal bone, left foot, subsequent encounter for fracture with delayed healing (principal)
CPT/HCPCS: 73630

== ENCOUNTER → 2023-01-07 07:58 | Outpatient (CLI) | payer OTHER, SELFPAY ==
--- NOTE | 2023-01-07 08:06 | XR_ITS ---
FINAL REPORT CLINICAL HISTORY: Lt foot pain, f/u fx COMPARISON: 12/17/2022 FINDINGS: LEFT FOOT: Three views of the left foot were obtained. There is mild degenerative change of the first MTP. There is a subacute to chronic fracture of the proximal fifth metatarsal with nonunion. There is no soft tissue abnormality. 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 Reviewed, Interpreted and Dictated by Giuseppe Flores III, MD Transcribed by Iesha Berry Authenticated and [facility]
== END ==
PROVIDERS: PCP Family Medicine; Visit Provider Orthopaedic Surgery
DX: S92.355G Nondisplaced fracture of fifth metatarsal bone, left foot, subsequent encounter for fracture with delayed healing (principal)
CPT/HCPCS: 73630

== ENCOUNTER → 2023-01-12 06:51 | Outpatient (CLI) | payer OTHER, SELFPAY ==
--- NOTE | 2023-01-12 06:54 | CT_ITS ---
FINAL REPORT TECHNIQUE: Thin section axial CT images with coronal and sagittal reformats were performed. This study was performed with techniques to keep radiation doses as low as reasonably achievable (ALARA). Individualized dose reduction techniques using automated exposure control or adjustment of mA and/or kV according to the patient''s size were employed. CLINICAL HISTORY: foot fracture COMPARISON: 11/17/2022 and 12/17/2022 FINDINGS: There is a fracture of the proximal 5th metatarsal. The appearance is consistent with a subacute fracture. Fracture line is still visible. No significant callus formation is identified. Findings consistent with delayed union. There are mild degenerative changes of the 1st metatarsophalangeal. 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 Reviewed, Interpreted and Dictated by Giuseppe Flores III, MD Transcribed by Hyun Palacios Authenticated and [facility]
== END ==
PROVIDERS: PCP Family Medicine; Visit Provider Orthopaedic Surgery
DX: S92.355G Nondisplaced fracture of fifth metatarsal bone, left foot, subsequent encounter for fracture with delayed healing (principal)
CPT/HCPCS: 73700

== ENCOUNTER → 2023-01-17 13:21 | Outpatient (CLI) | payer OTHER, SELFPAY ==
--- NOTE | 2023-01-17 13:32 | ECG_ITS ---
APPROVED REPORT Exam: Resting ECG HR:61 bpm ECG Measurements Heart Rate 61 AXES AR 166 P 59 QRSd 81 QRS 34 QT 393 T 31 QTc 397 Conclusion SINUS RHYTHM LOW QRS VOLTAGE IN PRECORDIAL LEADS [QRS DEFLECTION < 1.0 mV IN CHEST LEADS] BORDERLINE ECG UNCONFIRMED REPORT Electronically signed by : Fabien Wang MD 01/19/2023 17:36:13
--- NOTE | 2023-01-17 13:40 | XR_ITS ---
FINAL REPORT CLINICAL HISTORY: Pre op left foot, hypertension COMPARISON: None FINDINGS: Two views of the chest were obtained. The heart size and pulmonary vascularity are within normal limits. The mediastinum is normal. No acute pulmonary abnormality is identified. There is no pneumothorax. The bony thorax is intact. IMPRESSION: No active cardiopulmonary disease. Reviewed, Interpreted and Dictated by Giuseppe Flores III, MD Transcribed by Iesha eBrry Authenticated and [facility]
[2023-01-17 14:33] LABS: Basophils # 0.1 K/mm3 (0-0.2); Basophils % 0.8 % (0.1-2.0); Eosinophils # 0.3 K/mm3 (0.0-0.4); Eosinophils % 3.6 % (0.1-12.0); Hematocrit 44.3 % (37.0-47.0); Hemoglobin 14.3 g/dL (12.2-16.2); Lymphocytes # 2.7 K/mm3 (0.7-4.5); Lymphocytes % 31.1 % (10-50); Mean Corpuscular HGB Conc 32.3 g/dL (31.8-35.4); Mean Corpuscular Hemoglobin 31.1 pg (27.0-31.2); Mean Corpuscular Volume 96.3 fl (81-99); Mean Platelet Volume 8.6 fl (7.4-10.4); Monocytes # 0.4 K/mm3 (0.1-1.0); Monocytes % 4.9 % (1.7-9.3); Neutrophils # 5.1 K/mm3 (1.8-7.8); Neutrophils % 59.6 % (37.0-80.0); Platelet Count 253 K/mm3 (142-424); White Blood Count 8.6 K/mm3 (4.8-10.8)
[2023-01-17 14:57] LABS: Alanine Aminotransferase 28 U/L (12-78); Albumin Level 4.4 g/dl (3.5-5.0); Albumin/Globulin Ratio 1.6 (1.1-1.8); Alkaline Phosphatase 109 U/L (38-126); Anion Gap 14.8 mEq/L (5-15); Aspartate Amino Transferase 25 U/L (14-36); Bilirubin,Total 0.4 mg/dl (0.2-1.3); Blood Urea Nitrogen 21 mg/dl (7-17); Calcium 9.8 mg/dl (8.4-10.2); Carbon Dioxide 28 mmol/L (22.0-30.0); Chloride 102 mmol/L (98-107); Estimated Glomerular Filt Rate 64 ml/min (>60); GFR (African American) 77 ML/MIN (>60); Globulin 2.8 g/dL (1.3-3.2); Glucose 88 mg/dl (74-100); Potassium 4.8 mmoL/L (3.5-5.1); Sodium 140 mmol/L (136-145); Total Protein,Serum 7.2 g/dl (6.3-8.2)
== END ==
PROVIDERS: PCP Family Medicine; Visit Provider Orthopaedic Surgery
DX: Z01.818 Encounter for other preprocedural examination (principal); S92.355G Nondisplaced fracture of fifth metatarsal bone, left foot, subsequent encounter for fracture with delayed healing
CPT/HCPCS: 36415; 71046; 80053; 85025; 93005

== ENCOUNTER 2023-01-21 06:55 | Day surgery (SDC) | payer OTHER, SELFPAY ==
[2023-01-18 09:01] VITALS: BMI 29.1
[2023-01-21] VITALS (12 sets, daily range): BP systolic 121–147; BP diastolic 76–88; PULSE 60–85; RESP 16–18; TEMP 36.3–43; O2SAT 94–97
[2023-01-21 07:44] LABS: POC Glucose,Bedside 126 (70-110)
--- NOTE | 2023-01-21 07:48 | P.PNANES_ITS ---
[facility] Disclaimer: The information contained in this section may have been updated after the patient was seen, as this information can be updated by other users. Medical History Diabetes mellitus, type 2 Hyperlipidemia Low back pain DEXTER (obstructive sleep apnea) Restless leg syndrome Sleep apnea Surgical History History of breast biopsy History of carpal tunnel surgery of right wrist History of cholecystectomy History of lithotripsy History of partial hysterectomy Family History Other Coronary artery disease Diabetes Heart attack Hyperlipidemia Hypertension Social History Smoking Status: Former smoker quit date: 06/06/06 alcohol intake: current substance use type: denies use current occupational status: other Travel in the last 8 weeks: None household members: spouse housing: house current occupation: [employer] current occupational exposures/hazards: No caffeine: Yes [facility] Anesthesia Checklist Patient Identification Patient Identification: Arm Band Structural Data Admitted From: Home Planned Operative Procedure/s: ORIF Left 5th Metatarsal with Allograft Consent for Planned Operative Procedure(s) Verified: Yes Verified Documents: Surgical Consent and History and Physical NPO Status Verified Time NPO: 00:00 Additional verifications Anesthesia Reactions: No Hx Blood Transfusions: No Blood Transfusion Reaction: No Airway Assessment Mallampati Score:: Class II C-Spine Mobility Assessed: Yes TMJ Mobility Assessed: Yes Dentition: Good Dentition Neurological Assessment Level of Consciousness: Awake and Alert Anesthesia Plan Anesthesia Risk discussed: Yes Anesthesia Plan: Verified ASA Class: II Anesthesia Type: General w/block (Left Popliteal/Adductor Canal Block. Risks/benefits explained. Pt verbalized understanding)
--- NOTE | 2023-01-21 09:00 | XR_ITS ---
FINAL REPORT CLINICAL HISTORY: ORIF 5TH METATARSAL 1:33 fluoro time FINDINGS: FLUOROSCOPY LESS THAN 1 HOUR HISTORY: Fluoroscopy guidance. FINDINGS: Fluoroscopic guidance was provided for fifth metatarsal ORIF. 7 spot films were obtained. 1 minute 33 seconds of fluoroscopy time were used. IMPRESSION: As above. Reviewed, Interpreted and Dictated by Giuseppe Flores III, MD Transcribed by Iesha Berry Authenticated and [facility]
--- NOTE | 2023-01-21 10:36 | EXP.ANES.I ---
[facility] Anesthesia Record Part I Anesthesia Record I Intake, IV Amount: 1,100 Hydration: Adequate Estimated blood loss (mL): 5 Urine output (mL): 0 Blood Products used (#): none Blood Pressure: 141/84 SaO2: 94 Pulse Rate: 85 Airway Patency: Patent Respiratory Rate: 16 Temperature: 97.3 F Patient is:: Drowsy and Stable Stable to PACU at:: 10:35
--- NOTE | 2023-01-21 10:37 | P.OP_ITS ---
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 CT scan demonstrated no bridging callus. I had a discussion with her regarding further management and after discussion of risk, benefits, alternatives, she wished to proceed with open reduction internal fixation left fifth metatarsal nonunion with allograft. We discussed the risk and benefits of surgery. Risks included but were not limited to pain, bleeding, infection, damage to adjacent structures, need for further surgery, wound healing complications, loss of limb, . Patient expressed verbal consent and written consent was obtained for the above procedure. Operative findings:: Orthogonal fluoroscopic views demonstrated appropriate fracture reduction, safe intraosseous extra-articular hardware placement. Operative note:: Patient was identified in preoperative holding. Operative site was marked in indelible ink. History, physical, consent were reviewed and updated. Patient was surrendered to the anesthesia team, taken to the operative suite, placed supine on a well-padded operative table. Ipsilateral hip bump was placed as was a nonsterile thigh tourniquet. Anesthesia was induced. The operative extremity was prepped and draped in the usual sterile fashion. The operative team donned sterile gowns and gloves and a timeout was called. All in attendance agreed regarding the patient's identity, procedure, operative site. Weight-based dose of antibiotics was given prior to incision. I made a longitudinal incision over the fifth metatarsal, dissected through skin and subcutaneous tissue, and utilizing fluoroscopic guidance identified the nonunion. I freed this up with a freer, debrided fibrous nonunion material from the fracture site, perforated both sides of the fracture site, applied allogenic bone graft with platelet derived growth factor into the fracture site. I placed a precontoured fifth metatarsal hook plate which I held with an olive wire after impacting it into the base of the fifth metatarsal. I then applied a [id number] reduction clamp, applying compression across the fracture site. I placed a single lag screw by technique and achieved bicortical purchase, then placed locking screws proximal to the fracture, then placed a nonlocking compression screw distally followed by a final locking screw in the most distal hole. Orthogonal fluoroscopic views demonstrated appropriate fracture reduction, safe intraosseous extra-articular hardware placement. Wound was irrigated and closed in anatomic layers. Sterile dressings applied. Counts were correct x2. There were no apparent complications. I was present and scrubbed for the entire case. Tourniquet time (min): 53 Condition: stable Disposition: PACU Specimens:: none Complications:: none apparent
[2023-01-21 10:48] LABS: POC Glucose,Bedside 160 (70-110)
--- NOTE | 2023-01-21 12:01 | EXP.ANES.II ---
[facility] Anesthesia Record Part II Anesthesia Record Part II Discharge Time: 11:05 Destination: Obstetric PACU nurse assessment reviewed?: Yes Patient Condition:: Good Anesthesia Complications:: None Swallowing reflex intact?: Yes Airway Patency: Patent Cyanosis?: No Blood Pressure: 138/81 SaO2: 95 Respiratory Rate: 16 Pulse Rate: 81 Temperature: 98.2 F Mental Status: Alert & Oriented Pain level:: 0 Nausea and/or vomitting:: Nauseated Intake, IV Amount: 0 Hydration: Adequate
== END 2023-01-21 11:49 | disposition home or self-care (01) ==
PROVIDERS: PCP Family Medicine; Visit Provider Orthopaedic Surgery
PROC: (CPT 28485; principal; 2023-01-21 09:15)
DX: S92.355G Nondisplaced fracture of fifth metatarsal bone, left foot, subsequent encounter for fracture with delayed healing (principal); Z79.899 Other long term (current) drug therapy
CPT/HCPCS: 28485; 73620; 76000; 82962; 96374; C1713; C1725; C1734; C1776; J2405

== ENCOUNTER → 2023-02-03 08:51 | Outpatient (CLI) | payer OTHER, SELFPAY ==
--- NOTE | 2023-02-03 08:57 | XR_ITS ---
FINAL REPORT CLINICAL HISTORY: post op f/u lt foot COMPARISON: 01/07/2023 FINDINGS: LEFT FOOT Three views of the left foot were obtained in a plaster cast somewhat limiting visualization of bony detail. Since there has been internal fixation with an orthopedic plate and screws of the fracture of the base of the fifth metatarsal. The fracture fragments appear well aligned. No new bony abnormality is identified. IMPRESSION: Since prior exam, the patient has undergone internal fixation with an orthopedic plate and screws of a fracture of the base of the fifth metatarsal. The fracture fragments appear well aligned. Reviewed, Interpreted and Dictated by Avtar Carbajal MD Transcribed by Yaritza Calzada Authenticated and [facility] [place] [place]
== END ==
PROVIDERS: PCP Family Medicine; Visit Provider Orthopaedic Surgery
DX: M79.672 Pain in left foot (principal); M72.2 Plantar fascial fibromatosis
CPT/HCPCS: 73630

== ENCOUNTER → 2023-03-01 08:26 | Outpatient (CLI) | payer SELFPAY ==
--- NOTE | 2023-03-01 08:57 | XR_ITS ---
FINAL REPORT CLINICAL HISTORY: s/p lt foot surgery COMPARISON: None FINDINGS: AP, oblique and lateral views of the left foot were obtained. There is no prior exam for comparison. There is no acute fracture or dislocation. The patient has undergone ORIF at the base of the fifth metatarsal. The joint spaces are preserved. Soft tissues are normal. IMPRESSION: ORIF base fifth metatarsal. No acute osseous abnormality identified. Reviewed, Interpreted and Dictated by Brandi Faye MD Transcribed by Yaritza Calzada Authenticated and . [facility]
== END ==
PROVIDERS: PCP Family Medicine; Visit Provider Orthopaedic Surgery
DX: M72.2 Plantar fascial fibromatosis (principal)
CPT/HCPCS: 73630

== ENCOUNTER → 2023-03-22 08:13 | Outpatient (CLI) | payer SELFPAY ==
--- NOTE | 2023-03-22 08:18 | XR_ITS ---
FINAL REPORT CLINICAL HISTORY: left ankle post-op COMPARISON: March 01, 2023 FINDINGS: LEFT ANKLE: Three views of the left ankle were obtained. There is postoperative change of the proximal fifth metatarsal with a screw plate and multiple screws. A fracture line is still partially visualized on the lateral view. The joint spaces and mortise are intact. There is no soft tissue abnormality. IMPRESSION: Postoperative change of the proximal fifth metatarsal with partial visualization of the fracture line. Reviewed, Interpreted and Dictated by Giuseppe Flores III, MD Transcribed by Ronnie Sharif Authenticated and [facility]
== END ==
PROVIDERS: PCP Family Medicine; Visit Provider Orthopaedic Surgery
DX: S92.352K Displaced fracture of fifth metatarsal bone, left foot, subsequent encounter for fracture with nonunion (principal); Y99.9 Unspecified external cause status
CPT/HCPCS: 73610

== ENCOUNTER 2023-09-09 13:09 | Emergency (ER) | payer BC, SELFPAY ==
[2023-09-09 13:41] VITALS: BP 110/71; PULSE 67; RESP 17; TEMP 36.5; O2SAT 100; BMI 29.8
--- NOTE | 2023-09-09 13:41 | ED_ITS ---
Discharge Plan Disposition Patient Disposition: Home, Self-Care Condition: Good Prescriptions Prescriptions: New benzonatate 100 mg capsule 100 mg PO TIDP PRN (Reason: Cough) Qty: 30 0RF methylprednisolone 4 mg Tablets,Dose Pack 4 mg PO DIRECTED 6 Days Qty: 21 0RF Rx Instructions: Take 1 pack as directed for 6 days amoxicillin-pot clavulanate 875-125 mg Tablet 1 tab PO Q12H Qty: 20 0RF guaifenesin [Mucinex] 600 mg tablet extended release 12hr 600 - 1,200 mg PO BIDP PRN (Reason: Congestion) Qty: 30 0RF No Action atorvastatin 10 mg tablet 10 mg PO DAILY pantoprazole 40 mg tablet,delayed release (DR/EC) 40 mg PO DAILY pramipexole 0.125 mg tablet 0.375 mg PO HS escitalopram oxalate 20 mg tablet 20 mg PO DAILY methotrexate sodium 2.5 mg tablet 20 mg PO WEEKLY folic acid 1 mg tablet 1 mg PO DAILY donepezil 10 mg tablet 10 mg PO DAILY pregabalin 100 mg capsule 100 mg PO BID celecoxib 200 mg capsule 200 mg PO BID modafinil 100 mg tablet 100 mg PO QAM Qty: 30 2RF cholecalciferol (vitamin D3) 50 MCG tablet 2,000 unit PO DAILY aspirin 81 mg tablet,chewable 81 mg PO DAILY Qty: 30 0RF aspirin 81 mg tablet,chewable 81 mg PO DAILY Qty: 30 0RF famotidine 20 MG tablet 20 mg PO BID Referrals Follow up/Referrals: Jay Cooper [Primary Care Provider] - See instructions Activity Restrictions/Add. Instructions Additional Instructions/Restrictions: Drink plenty of fluids. Take tylenol or ibuprofen for pain or fever. Take the medications as directed. Follow up with your regular doctor. GO TO THE ER FOR ANY WORSENING SYMPTOMS Don't start the oral steroids until tomorrow since you had the steroid shot here today. Clinical Impressions Clinical Impression: Bronchitis Sinusitis Qualifiers: Sinusitis location: unspecified location Chronicity: unspecified Qualified Code(s): J32.9 - Chronic sinusitis, unspecified Instructions Patient Instructions: DI for Sinusitis, DI for Acute Bronchitis Discharge ED Provider: Rodolfo Vera [facility] General Stated complaint: congestion, cough Time Seen by Provider: 09/09/23 13:41 History of Present Illness Provider Complaint: She states that for the past 1 week she has had worsening sinus and chest congestion. She states that she has a productive cough. Related Data Home Medications Medication Instructions Recorded Confirmed atorvastatin 10 mg tablet 10 mg PO DAILY Cholesterol 04/15/19 03/22/23 pantoprazole 40 mg tablet,delayed 40 mg PO DAILY GERD 07/08/21 03/22/23 release cholecalciferol (vitamin D3) 50 2,000 unit PO DAILY Supplement 07/27/21 03/22/23 mcg (2,000 unit) tablet famotidine 20 mg tablet 20 mg PO BID acid reflux 10/23/21 03/22/23 donepezil 10 mg tablet 10 mg PO DAILY * 06/09/22 03/22/23 escitalopram oxalate 20 mg tablet 20 mg PO DAILY Depression 06/09/22 03/22/23 folic acid 1 mg tablet 1 mg PO DAILY Supplement 06/09/22 03/22/23 methotrexate sodium 2.5 mg tablet 20 mg PO WEEKLY * 06/09/22 03/22/23 pramipexole 0.125 mg tablet 0.375 mg PO HS RLS 06/09/22 03/22/23 celecoxib 200 mg capsule 200 mg PO BID bones 08/05/22 03/22/23 pregabalin 100 mg capsule 100 mg PO BID nerve pain 08/05/22 03/22/23 Previous Rx's Medication Instructions Recorded modafinil 100 mg tablet 100 mg PO QAM dexter w/ hypersomnia 10/15/22 #30 tabs aspirin 81 mg chewable tablet 81 mg PO DAILY #30 tabs 01/21/23 aspirin 81 mg chewable tablet 81 mg PO DAILY #30 tabs 01/21/23 amoxicillin 875 mg-potassium 1 tab PO Q12H #20 tabs 09/09/23 clavulanate 125 mg tablet benzonatate 100 mg capsule 100 mg PO TIDP PRN Cough #30 caps 09/09/23 guaifenesin 600 mg tablet, 600 - 1,200 mg (1 - 2 x 600 mg) PO 09/09/23 extended release 12 hr (Mucinex) BIDP PRN Congestion #30 tabs methylprednisolone 4 mg tablets in 4 mg PO DIRECTED 6 days #21 tabs 09/09/23 a dose pack Allergies Allergy/AdvReac Type Severity Reaction Status Date / Time acetaminophen [From Percocet] AdvReac Mild NA-NAUSEA Verified 10/17/23 08:56 aspirin AdvReac Mild NA-NAUSEA Verified 03/22/23 08:56 codeine AdvReac Mild NA-NAUSEA Verified 03/22/23 08:56 oxycodone [From Percocet] AdvReac Mild NA-NAUSEA Verified 03/22/23 08:56 Sulfa (Sulfonamide AdvReac Mild NA-NAUSEA Verified 03/22/23 08:56 Antibiotics) [facility] Disclaimer: The information contained in this section may have been updated after the patie nt was seen, as this information can be updated by other users. Medical History Diabetes mellitus, type 2 Hyperlipidemia Low back pain DEXTER (obstructive sleep apnea) Mild to moderate positional DEXTER, borderline compliance on CPAP, persistent fatigue and hypersomnia, history of rheumatoid arthritis and fibromyalgia, average sleep time 5 hours. Differential diagnosis of hypersomnia include the side effect of medications, poor CPAP compliance, residual hypersomnia w/ DEXTER, poor sleep hygiene, fatigue associated with RA and fibromyalgia. Restless leg syndrome Currently managed by PCP with pramipexole, ferritin level 135 05/18/2022 Sleep apnea Surgical History History of breast biopsy History of carpal tunnel surgery of right wrist History of cholecystectomy History of lithotripsy History of partial hysterectomy Family History Other Coronary artery disease Diabetes Heart attack Hyperlipidemia Hypertension Social History Smoking Status: Former smoker alcohol intake: current substance use type: denies use current occupational status: other Travel in the last 8 weeks: None household members: spouse housing: house current occupation: [employer] current occupational exposures/hazards: No caffeine: Yes ROS Obtained: Yes All systems reviewed & no additional complaints except as documented Constitutional Constitutional: Reports poor appetite Eyes Eyes: Reports system reviewed and no additional complaints, except as documented ENT Ears, Nose, Mouth, and Throat: Reports as per HPI Cardiovascular Cardiovascular: Reports system reviewed and no additional complaints, except as documented and Denies chest pain Respiratory Respiratory: Denies shortness of breath, Reports chest congestion, Reports cough, Denies stridor and Denies wheezing Gastrointestinal Gastrointestingal: Reports system reviewed and no additional complaints, except as documented; Denies abdominal pain, diarrhea or vomiting Musculoskeletal Musculoskeletal: Reports system reviewed and no additional complaints, except as documented and Denies arthralgias Integumentary/Breasts Skin/Breast: Reports system reviewed and no additional complaints, except as documented and Denies rash Neurologic Neurologic: Denies paresthesias Allergic/Immunologic Allergic/Immunologic: Denies wheezing Physical Exam General General appearance: alert and in no apparent distress Eye Eye exam: Present normal appearance, PERRL and EOMI ENT ENT exam: Present mucous membranes moist and normal external ear exam Expanded ENT Exam External ear exam: Present normal external inspection TM/Canal exam: Bilateral TM: erythema and bulging Nose exam: Absent sinus tenderness Nasal speculum exam: Bilateral: normal Mouth exam: Present normal external inspection; Absent drooling Teeth exam: Present normal inspection Throat exam: Present tonsillar erythema and tonsillomegaly Neck Neck exam: Present normal inspection, full ROM and trachea midline; Absent ten derness, lymphadenopathy or thyromegaly Chest Chest inspection: Present normal inspection and symmetric chest wall rise; Absent tenderness or rash Respiratory Respiratory exam: Present normal lung sounds bilaterally; Absent respiratory distress, wheezes, stridor or accessory muscle use Cardiovascular Cardiovascular exam: Present regular rate, normal rhythm and normal heart sounds Abdominal Exam Abdominal exam: Present soft; Absent distention, tenderness, guarding, rebound or rigidity Extremities Exam Extremities exam: Present normal inspection, full ROM and normal capillary refill; Absent tenderness or calf tenderness Back Exam Back exam: Present normal inspection and full ROM; Absent tenderness Neurological Exam Neurological exam: Present alert and oriented X3 Psychiatric Psychiatric exam: Present normal affect and normal mood Skin Skin exam: Present warm, dry, intact and normal color Lymphatic Lymphatic Findings: no adenopathy Medical Decision Making Medical Records Medical records reviewed: No I reviewed the patient's medical records. [place] Inquiry Pt receiving controlled substance: No
[2023-09-09] MEDS: DEXAMETHASONE 4MG/ML 1ML VIAL 8 MG IM (14:09)
[2023-09-09 14:21] VITALS: BP 110/71; PULSE 67; RESP 17; TEMP 36.5; O2SAT 100
== END 2023-09-09 14:24 | disposition home or self-care (01) ==
PROVIDERS: Emergency Provider Nurse Practitioner Family; PCP Family Medicine
DX: J20.9 Acute bronchitis, unspecified (principal); J01.90 Acute sinusitis, unspecified; R05.9 Cough, unspecified; R09.81 Nasal congestion; E11.9 Type 2 diabetes mellitus without complications; E78.5 Hyperlipidemia, unspecified; Z87.891 Personal history of nicotine dependence
CPT/HCPCS: 96372; 99212; 99214; G0463

== ENCOUNTER 2023-09-16 06:21 | Emergency (ER) | payer BC, SELFPAY ==
[2023-09-16 06:28] VITALS: BP 117/68; PULSE 87; RESP 16; TEMP 36.9; O2SAT 96; BMI 29.9
--- NOTE | 2023-09-16 06:39 | HMH.EDGENADL ---
Discharge Plan Disposition Patient Disposition: Home, Self-Care Prescriptions Prescriptions: No Action atorvastatin 10 mg tablet 10 mg PO DAILY pantoprazole 40 mg tablet,delayed release (DR/EC) 40 mg PO DAILY pramipexole 0.125 mg tablet 0.375 mg PO HS escitalopram oxalate 20 mg tablet 20 mg PO DAILY methotrexate sodium 2.5 mg tablet 20 mg PO WEEKLY folic acid 1 mg tablet 1 mg PO DAILY donepezil 10 mg tablet 10 mg PO DAILY pregabalin 100 mg capsule 100 mg PO BID celecoxib 200 mg capsule 200 mg PO BID modafinil 100 mg tablet 100 mg PO QAM Qty: 30 2RF cholecalciferol (vitamin D3) 50 MCG tablet 2,000 unit PO DAILY aspirin 81 mg tablet,chewable 81 mg PO DAILY Qty: 30 0RF aspirin 81 mg tablet,chewable 81 mg PO DAILY Qty: 30 0RF famotidine 20 MG tablet 20 mg PO BID benzonatate 100 mg capsule 100 mg PO TIDP PRN (Reason: Cough) Qty: 30 0RF methylprednisolone 4 mg Tablets,Dose Pack 4 mg PO DIRECTED 6 Days Qty: 21 0RF Rx Instructions: Take 1 pack as directed for 6 days amoxicillin-pot clavulanate 875-125 mg Tablet 1 tab PO Q12H Qty: 20 0RF guaifenesin [Mucinex] 600 mg tablet extended release 12hr 600 - 1,200 mg PO BIDP PRN (Reason: Congestion) Qty: 30 0RF Referrals Follow up/Referrals: Jay Cooper [Primary Care Provider] - See instructions Activity Restrictions/Add. Instructions Additional Instructions/Restrictions: Please follow-up with your primary care provider. Please return to the emergency department if you develop any new or worsening symptoms or become concerned for your health. Please take Benadryl as needed for rash. Clinical Impressions Clinical Impression: Acute idiopathic urticaria Discharge ED Provider: Dre Joseph General Adult HPI General Chief complaint: Allergic Reaction Stated complaint: face swollen, itching Time Seen by Provider: 09/16/23 06:30 Mode of Arrival: Ambulatory Source of Information: Patient Limitations: No Limitations Description of Symptoms (Recalled from ER Triage Doc. by RN): pt states she woke up this am with generalized hives History of Present Illness HPI narrative: 58-year-old female with history as reported below presents after waking up with a rash. The rash is itchy but improving. She reports that nothing like this has happened before. She denies any chest pain shortness of breath tongue swelling lip swelling facial swelling. She denies any fever at home. She denies any new clothes, detergents, soaps etc. Related Data Home Medications Medication Instructions Recorded Confirmed atorvastatin 10 mg tablet 10 mg PO DAILY Cholesterol 04/15/19 03/22/23 pantoprazole 40 mg tablet,delayed 40 mg PO DAILY GERD 07/08/21 03/22/23 release cholecalciferol (vitamin D3) 50 2,000 unit PO DAILY Supplement 07/27/21 03/22/23 mcg (2,000 unit) tablet famotidine 20 mg tablet 20 mg PO BID acid reflux 10/23/21 03/22/23 donepezil 10 mg tablet 10 mg PO DAILY * 06/09/22 03/22/23 escitalopram oxalate 20 mg tablet 20 mg PO DAILY Depression 06/09/22 03/22/23 folic acid 1 mg tablet 1 mg PO DAILY Supplement 06/09/22 03/22/23 methotrexate sodium 2.5 mg tablet 20 mg PO WEEKLY * 06/09/22 03/22/23 pramipexole 0.125 mg tablet 0.375 mg PO HS RLS 06/09/22 03/22/23 celecoxib 200 mg capsule 200 mg PO BID bones 08/05/22 03/22/23 pregabalin 100 mg capsule 100 mg PO BID nerve pain 08/05/22 03/22/23 Previous Rx's Medication Instructions Recorded modafinil 100 mg tablet 100 mg PO QAM dexter w/ hypersomnia 10/15/22 #30 tabs aspirin 81 mg chewable tablet 81 mg PO DAILY #30 tabs 01/21/23 aspirin 81 mg chewable tablet 81 mg PO DAILY #30 tabs 01/21/23 amoxicillin 875 mg-potassium 1 tab PO Q12H #20 tabs 09/09/23 clavulanate 125 mg tablet benzonatate 100 mg capsule 100 mg PO TIDP PRN Cough #30 caps 09/09/23 guaifenesin 600 mg tablet, 600 - 1,200 mg (1 - 2 x 600 mg) PO 09/09/23 extended release 12 hr (Mucinex) BIDP PRN Congestion #30 tabs methylprednisolone 4 mg tablets in 4 mg PO DIRECTED 6 days #21 tabs 09/09/23 a dose pack Allergies Allergy/AdvReac Type Severity Reaction Status Date / Time acetaminophen [From Percocet] AdvReac Mild NA-NAUSEA Verified 03/22/23 08:56 aspirin AdvReac Mild NA-NAUSEA Verified 03/22/23 08:56 codeine AdvReac Mild NA-NAUSEA Verified 03/22/23 08:56 oxycodone [From Percocet] AdvReac Mild NA-NAUSEA Verified 03/22/23 08:56 Sulfa (Sulfonamide AdvReac Mild NA-NAUSEA Verified 03/22/23 08:56 Antibiotics) [facility] Disclaimer: The information contained in this section may have been updated after the patient was seen, as this information can be updated by other users. Medical History Diabetes mellitus, type 2 Hyperlipidemia Low back pain DEXTER (obstructive sleep apnea) Mild to moderate positional DEXTER, borderline compliance on CPAP, persistent fatigue and hypersomnia, history of rheumatoid arthritis and fibromyalgia, average sleep time 5 hours. Differential diagnosis of hypersomnia include the side effect of medications, poor CPAP compliance, residual hypersomnia w/ DEXTER, poor sleep hygiene, fatigue associated with RA and fibromyalgia. Restless leg syndrome Currently managed by PCP with pramipexole, ferritin level 135 05/18/2022 Sleep apnea Surgical History History of breast biopsy History of carpal tunnel surgery of right wrist History of cholecystectomy History of lithotripsy History of partial hysterectomy Family History Other Coronary artery disease Diabetes Heart attack Hyperlipidemia Hypertension Social History Smoking Status: Never smoker alcohol intake: current substance use type: denies use current occupational status: other Travel in the last 8 weeks: None household members: spouse housing: house current occupation: [employer] current occupational exposures/hazards: No caffeine: Yes ROS Obtained: Yes All systems reviewed & no additional complaints except as documented Physical Exam General General appearance: alert and in no apparent distress Head Head exam: atraumatic and normocephalic Eye Eye exam: Present normal appearance, PERRL and EOMI ENT ENT exam: Present normal oropharynx, normal external ear exam and other (No intraoral lesions noted, no tongue or lip swelling) Neck Neck exam: Present normal inspection and full ROM Chest Chest inspection: Present normal inspection and symmetric chest wall rise; Absent tenderness Respiratory Respiratory exam: Present normal lung sounds bilaterally; Absent respiratory distress Cardiovascular Cardiovascular exam: Present regular rate and normal rhythm Abdominal Exam Abdominal exam: Present soft; Absent distention, tenderness or guarding Extremities Exam Extremities exam: Present normal inspection; Absent edema or joint swelling Back Exam Back exam: Present normal inspection; Absent tenderness Neurological Exam Neurological exam: Present alert and oriented X3; Absent motor sensory deficit Psychiatric Psychiatric exam: Present normal affect and normal mood Skin Skin exam: Present warm, dry, normal color and rash (Disseminated urticaria noted, no evidence of infectious etiology) Lymphatic Lymphatic Findings: no adenopathy Medical Decision Making Medical Records Medical records reviewed: Yes I reviewed the patient's medical records. [place] Inquiry Pt receiving controlled substance: No [place] was queried for this patient: No Vital Signs: 09/16/23 06:28 09/16/23 06:48 Temperature 98.5 F 98.5 F Temperature Source Oral Oral Pulse Rate 85 Pulse Rate [Left] 87 Respiratory Rate 16 16 Blood Pressure 111/81 Blood Pressure [Right Arm] 117/68 Blood Pressure Mean [Right Arm] 84 Blood Pressure Source [Right Arm] Automatic Cuff Blood Pressure Position [Right Arm] Sitting 02 Sat by Pulse Oximetry 96 Oxygen Delivery Method Room Air Lab Data Lab results reviewed: Yes I reviewed the patient's lab results. Medical Decision Narrative: 58-year-old female with history as reported above presents after waking up with a rash this morning.. History was obtained interactive discussion with patient. On arrival, patient is [afebrile, hemodynamically stable, satting appropriately, alert, oriented x4, GCS 15], moving all extremities spontaneously. Full physical exam performed and significant for diffuse urticarial rash, no wheezing, no intraoral lesions or tongue swelling. Differential includes but is not limited to idiopathic urticaria, allergic reaction, anaphylaxis, environmental exposure. Given patient history, exam and workup, patient's presentation most likely represents acute idiopathic urticaria. Diagnostic uncertainty remains as to the underlying etiology of patient's rash. I recommended that she take Benadryl as needed and monitor for signs of development of more serious allergic reaction such as wheezing, facial swelling, oral lesions etc. Patient is agreeable to plan and was discharged in stable condition. Procedures Risk/Benefits of Procedure(s) Were Explained: Yes Critical Care Critical Care Time Critical Care Time: No
[2023-09-16 06:48] VITALS: BP 111/81; PULSE 85; RESP 16; TEMP 36.9; O2SAT 97
== END 2023-09-16 06:49 | disposition home or self-care (01) ==
PROVIDERS: Emergency Provider Emergency Medicine; PCP Family Medicine
DX: L50.1 Idiopathic urticaria (principal); E11.9 Type 2 diabetes mellitus without complications; E78.5 Hyperlipidemia, unspecified; G47.33 Obstructive sleep apnea (adult) (pediatric)
CPT/HCPCS: 99282

== ENCOUNTER 2023-11-14 08:28 | Outpatient (CLI) | payer BC, SELFPAY ==
--- NOTE | 2023-11-14 08:37 | XR_ITS ---
FINAL REPORT CLINICAL HISTORY: Lt Foot Pain surgery 1 yr ago COMPARISON: 03/01/2023 FINDINGS: LEFT FOOT 3 views were obtained. There are postoperative changes of the proximal fifth metatarsal with a screw plate and multiple screws. There is no acute fracture or dislocation. There are mild degenerative changes. A small posterior calcaneal spur is noted. There is no soft tissue abnormality. IMPRESSION: Postoperative changes with no acute bony abnormality. Reviewed, Interpreted and Dictated by Giuseppe Flores III, MD Transcribed by Mena Brown Authenticated and [facility]
== END 2023-11-14 23:59 | disposition home or self-care (01) ==
LOC: RAD 08:30
PROVIDERS: PCP Family Medicine; Visit Provider Orthopaedic Surgery
DX: M79.672 Pain in left foot (principal)
CPT/HCPCS: 73630

== ENCOUNTER 2024-01-02 07:42 | Outpatient (CLI) | payer BC, SELFPAY ==
[2024-01-02 08:30] VITALS: PULSE 60; PULSE 66
[2024-01-02] MEDS: ALBUTEROL 0.083% 2.5 MG/3 ML NEB IH (08:30)
== END 2024-01-02 23:59 | disposition home or self-care (01) ==
LOC: RT 07:42
PROVIDERS: PCP Family Medicine; Visit Provider Specialist
DX: R06.02 Shortness of breath (principal); R06.00 Dyspnea, unspecified
CPT/HCPCS: 94060; 94640; 94726; 94729; J7613

== ENCOUNTER 2024-01-03 16:49 | Outpatient (CLI) | payer BC, SELFPAY | END 2024-01-03 23:59 | disposition home or self-care (01) | LOC: LAB.DROPOF 16:50 | PROVIDERS: PCP Nurse Practitioner; Visit Provider Nurse Practitioner | DX: B35.1 Tinea unguium (principal) | CPT/HCPCS: 87102; 87206; 87220 ==

== ENCOUNTER 2024-05-24 16:50 | Emergency (ER) | payer BC, SELFPAY ==
--- NOTE | 2024-05-24 17:15 | EXP.UTC ---
Discharge Plan Disposition Patient Disposition: Home, Self-Care Condition: Good Prescriptions Prescriptions: New azithromycin [Zithromax] 250 mg tablet 250 mg PO UD DOSE PK Qty: 6 0RF Rx Instructions: Take two (2) tablets today, then one (1) tablet days #2 thru #5 benzonatate 100 mg capsule 100 mg PO TIDP PRN (Reason: Cough) Qty: 30 0RF methylprednisolone 4 mg Tablets,Dose Pack 4 mg PO DIRECTED 6 Days Qty: 21 0RF Rx Instructions: Take 1 pack as directed for 6 days No Action atorvastatin 10 mg tablet 10 mg PO DAILY pantoprazole 40 mg tablet,delayed release (DR/EC) 40 mg PO DAILY pramipexole 0.125 mg tablet 0.375 mg PO HS escitalopram oxalate 20 mg tablet 20 mg PO DAILY methotrexate sodium 2.5 mg tablet 20 mg PO WEEKLY folic acid 1 mg tablet 1 mg PO DAILY donepezil 10 mg tablet 10 mg PO DAILY pregabalin 100 mg capsule 100 mg PO BID celecoxib 200 mg capsule 200 mg PO BID mupirocin 2 % ointment 1 applic topical BID 10 Days Qty: 15 0RF magnesium oxide 420 mg tablet 420 mg PO DAILY budesonide-formoterol [Symbicort] 160-4.5 mcg/actuation HFA aerosol inhaler 2 puff inhalation BID 90 Days Qty: 10.2 2RF cholecalciferol (vitamin D3) 50 MCG tablet 2,000 unit PO DAILY famotidine 20 MG tablet 20 mg PO BID Referrals Follow up/Referrals: Jay Cooper [Primary Care Provider] - See instructions Activity Restrictions/Add. Instructions Additional Instructions/Restrictions: Drink plenty of fluids. Take tylenol or ibuprofen for pain or fever. Take the medications as directed. Follow up with your regular doctor. GO TO THE ER FOR ANY WORSENING SYMPTOMS Don't start the oral steroids (medrol dose pack) until tomorrow since you had the shot here Clinical Impressions Clinical Impression: Sinusitis, Bronchitis Instructions Patient Instructions: Sinusitis, DI for Sinusitis Print Language Print Language: Yoruba Discharge ED Provider: Rodolfo Vera [facility] [place] HPI General Stated complaint: cough, brittany, ear ache Time Seen by Provider: 05/24/24 17:15 Related Data Home Medications ?Medication ?Instructions ?Recorded ?Confirmed atorvastatin 10 mg tablet 10 mg PO DAILY Cholesterol 04/15/19 04/09/24 pantoprazole 40 mg tablet,delayed 40 mg PO DAILY GERD 07/08/21 04/09/24 release cholecalciferol (vitamin D3) 50 2,000 unit PO DAILY Supplement 07/27/21 04/09/24 mcg (2,000 unit) tablet famotidine 20 mg tablet 20 mg PO BID acid reflux 10/23/21 04/09/24 donepezil 10 mg tablet 10 mg PO DAILY * 06/09/22 04/09/24 escitalopram oxalate 20 mg tablet 20 mg PO DAILY Depression 06/09/22 05/24/24 folic acid 1 mg tablet 1 mg PO DAILY Supplement 06/09/22 04/09/24 methotrexate sodium 2.5 mg tablet 20 mg PO WEEKLY * 06/09/22 05/24/24 pramipexole 0.125 mg tablet 0.375 mg PO HS RLS 06/09/22 04/09/24 celecoxib 200 mg capsule 200 mg PO BID bones 08/05/22 04/09/24 pregabalin 100 mg capsule 100 mg PO BID nerve pain 08/05/22 05/24/24 magnesium oxide 420 mg tablet 420 mg PO DAILY 03/27/24 04/09/24 Previous Rx's ?Medication ?Instructions ?Recorded budesonide-formoterol HFA 160 2 puff inhalation BID 90 days 03/27/24 mcg-4.5 mcg/actuation aerosol #10.2 grams inhaler (Symbicort) mupirocin 2 % topical ointment 1 applic topical BID infection 10 04/09/24 days #15 grams azithromycin 250 mg tablet 250 mg PO UD DOSE PK #6 tabs 05/24/24 (Zithromax) benzonatate 100 mg capsule 100 mg PO TIDP PRN Cough #30 caps 05/24/24 methylprednisolone 4 mg tablets in 4 mg PO DIRECTED 6 days #21 tabs 05/24/24 a dose pack Allergies Allergy/AdvReac Type Severity Reaction Status Date / Time acetaminophen (From Percocet) AdvReac Mild NA-NAUSEA Verified 04/09/24 09:33 aspirin AdvReac Mild NA-NAUSEA Verified 04/09/24 09:33 codeine AdvReac Mild NA-NAUSEA Verified 04/09/24 09:33 oxycodone (From Percocet) AdvReac Mild NA-NAUSEA Verified 04/09/24 09:33 Sulfa (Sulfonamide AdvReac Mild NA-NAUSEA Verified 04/09/24 09:33 Antibiotics) [facility] Disclaimer: The information contained in this section may have been updated after the patient was seen, as this information can be updated by other users. Medical History Dyspnea on exertion Allergic rhinitis Asthma Sleep apnea Diabetes mellitus, type 2 Hyperlipidemia DEXTER (obstructive sleep apnea) Mild to moderate positional DEXTER, borderline compliance on CPAP, persistent fatigue and hypersomnia, history of rheumatoid arthritis and fibromyalgia, average sleep time 5 hours. Differential diagnosis of hypersomnia include the side effect of medications, poor CPAP compliance, residual hypersomnia w/ DEXTER, poor sleep hygiene, fatigue associated with RA and fibromyalgia. Restless leg syndrome Currently managed by PCP with pramipexole, ferritin level 135 05/18/2022 Low back pain Surgical History History of foot surgery History of lithotripsy History of breast biopsy History of carpal tunnel surgery of right wrist History of cholecystectomy History of partial hysterectomy Family History Other Coronary artery disease Diabetes Heart attack Hyperlipidemia Hypertension Social History Smoking Status: Former smoker years smoked: 30 smoking status stop date: 2006 alcohol intake: current alcohol intake frequency: a few times a month substance use type: denies use current occupational status: other Travel in the last 8 weeks: None household members: spouse housing: house current occupation: [employer] current occupational exposures/hazards: No caffeine: Yes Have you lived/traveled outside [place] in past 30 days?: No Contact w/someone who lives/traveled outside [place] past 30 days?: No Exposure to someone with infectious disease in past 14 days?: No Do you have a fever (greater than 100.4 F or 38 C)?: No Have you tested positive for COVID-19: No Exposed to someone with COVID-19 in past 14 days?: No Do you have a sore throat?: No Do you have a cough?: Yes Do you have any weakness?: No Do you have any diarrhea?: No Are you experiencing any unusual bleeding?: No Do you have any muscle aches/pain?: No Do you have any abdominal pain?: No Are you experiencing loss of taste or smell?: No ROS Obtained: Yes All systems reviewed & no additional complaints except as documented Constitutional Constitutional: Reports poor appetite Eyes Eyes: Reports system reviewed and no additional complaints, except as documented ENT Ears, Nose, Mouth, and Throat: Reports as per HPI Cardiovascular Cardiovascular: Reports system reviewed and no additional complaints, except as documented and Denies chest pain Respiratory Respiratory: Denies shortness of breath, Reports chest congestion, Reports cough, Denies stridor and Denies wheezing Gastrointestinal Gastrointestingal: Reports system reviewed and no additional complaints, except as documented; Denies abdominal pain, diarrhea or vomiting Musculoskeletal Musculoskeletal: Reports system reviewed and no additional complaints, except as documented and Denies arthralgias Integumentary/Breasts Skin/Breast: Reports system reviewed and no additional complaints, except as documented and Denies rash Neurologic Neurologic: Denies paresthesias Allergic/Immunologic Allergic/Immunologic: Denies wheezing Physical Exam General General appearance: alert and in no apparent distress Head Head exam: atraumatic, normocephalic and normal inspection Eye Eye exam: Present normal appearance, PERRL and EOMI ENT ENT exam: Present normal exam, normal oropharynx, mucous membranes moist, TM's normal bilaterally and normal external ear exam Neck Neck exam: Present normal inspection, full ROM and trachea midline; Absent meningismus or lymphadenopathy Chest Chest inspection: Present normal inspection and symmetric chest wall rise; Absent tenderness Respiratory Respiratory exam: Present normal lung sounds bilaterally; Absent respiratory distress Cardiovascular Cardiovascular exam: Present regular rate and normal rhythm; Absent JVD Abdominal Exam Abdominal exam: Present soft and normal bowel sounds; Absent distention, tenderness or guarding Extremities Exam Extremities exam: Present normal inspection, full ROM and normal capillary refill; Absent calf tenderness Back Exam Back exam: Present normal inspection; Absent tenderness Neurological Exam Neurological exam: Present alert and oriented X3 Psychiatric Psychiatric exam: Present normal affect and normal mood Skin Skin exam: Present warm, dry, intact and normal color Lymphatic Lymphatic Findings: no adenopathy Medical Decision Making Medical Records Medical records reviewed: No I reviewed the patient's medical records. Screening: Per USPSTF and CDC recommendations, given the prevalence of disease in our region, it is our hospital?s policy to screen for HIV and viral Hepatitis for all patients aged 18 and over and those with ongoing risk factors. [place] Inquiry Pt receiving controlled substance: No
[2024-05-24 17:16] VITALS: BP 109/50; PULSE 55; RESP 18; TEMP 36.6; O2SAT 96; BMI 27.9
[2024-05-24] MEDS: DEXAMETHASONE 4MG/ML 1ML VIAL 8 MG IM (18:12)
[2024-05-24] MEDS: LIDOCAINE 1% 5ML PF VIAL IM (18:12)
[2024-05-24] MEDS: cefTRIAXone 1GM VIAL 1 GM IM (18:12)
[2024-05-24 18:35] VITALS: BP 109/50; PULSE 55; RESP 18; TEMP 36.6
== END 2024-05-24 18:39 | disposition home or self-care (01) ==
PROVIDERS: Emergency Provider Nurse Practitioner Family; PCP Family Medicine
DX: J01.90 Acute sinusitis, unspecified (principal); J20.9 Acute bronchitis, unspecified
CPT/HCPCS: 96372; 99213; G0381; J0696; J1100

== ENCOUNTER 2024-06-05 08:59 | Emergency (ER) | payer BC, SELFPAY ==
[2024-06-05] VITALS (8 sets, daily range): BP systolic 116–131; BP diastolic 68–95; PULSE 63–78; RESP 16–18; TEMP 36.8; O2SAT 96–99; BMI 27.1
--- NOTE | 2024-06-05 09:19 | CT_ITS ---
FINAL REPORT TECHNIQUE: Thin section axial images were obtained through the neck after contrast administration per CT angiogram protocol. Multiplanar reconstruction images were obtained from the axial data. Exam was performed using dose reduction technique. CLINICAL HISTORY: severe head and neck pain b/l COMPARISON: None FINDINGS: CTA NECK: Aortic arch: There is a normal three-vessel configuration to the aortic arch. There is no significant stenosis of the great vessels at their origins. Right carotid artery: The right common carotid artery is patent without stenosis. The cervical portions of the right internal carotid artery are patent without stenosis. No significant plaque Left carotid artery: The left common carotid artery is patent without stenosis. The cervical portions of the left internal carotid artery are patent without stenosis. No significant plaque. Vertebral arteries: The vertebral arteries are patent without stenosis. Other soft tissues: Unremarkable. IMPRESSION: No occlusion or significant stenosis. Reviewed, Interpreted and Dictated by Brandi Faye MD Transcribed by Iesha Berry Authenticated and [facility]
--- NOTE | 2024-06-05 09:19 | CT_ITS ---
FINAL REPORT TECHNIQUE: Thin section axial images are obtained through the brain after intravenous contrast injection. Multiplanar reconstructions were obtained from the axial data. Exam was performed using dose reduction technique per the ALARA principal. CLINICAL HISTORY: severe head and neck pain b/l COMPARISON: None FINDINGS: The intracerebral portions of the carotid arteries are patent. The anterior and middle cerebral arteries are patent. The basilar artery is patent. The left vertebral artery is dominant. The posterior cerebral arteries arise from the basilar artery. [place] is intact. There is no significant stenosis, aneurysm, or AVM. IMPRESSION: Unremarkable CT angiogram of the intracerebral vasculature. Reviewed, Interpreted and Dictated by Brandi Faye MD Transcribed by Iesha Berry Authenticated and [facility]
--- NOTE | 2024-06-05 09:19 | CT_ITS ---
FINAL REPORT TECHNIQUE: Thin section axial images were obtained from skull base to vertex without contrast. Coronal reconstruction images were obtained from the axial data. Exam was performed using dose reduction technique. CLINICAL HISTORY: severe head and neck pain b/l COMPARISON: None FINDINGS: There is no mass effect or midline shift. There is no hydrocephalus. There is no intracranial hemorrhage. The posterior fossa is without acute abnormality. The basilar cisterns are preserved. There is mild mucoperiosteal thickening of the right maxillary sinus without air-fluid level. There is a small amount of fluid in the left mastoid air cells. No acute osseous abnormality is identified. IMPRESSION: No evidence of hemorrhage or acute infarct. Left mastoiditis and chronic right maxillary sinusitis. Reviewed, Interpreted and Dictated by Brandi Faye MD Transcribed by Iesha Berry Authenticated and [facility]
--- NOTE | 2024-06-05 09:21 | ED_ITS ---
Discharge Plan Disposition Patient Disposition: Home, Self-Care Chief Complaint: PAIN Prescriptions Prescriptions: No Action atorvastatin 10 mg tablet 10 mg PO DAILY pantoprazole 40 mg tablet,delayed release (DR/EC) 40 mg PO DAILY pramipexole 0.125 mg tablet 0.375 mg PO HS escitalopram oxalate 20 mg tablet 20 mg PO DAILY methotrexate sodium 2.5 mg tablet 20 mg PO WEEKLY folic acid 1 mg tablet 1 mg PO DAILY donepezil 10 mg tablet 10 mg PO DAILY pregabalin 100 mg capsule 100 mg PO BID celecoxib 200 mg capsule 200 mg PO BID magnesium oxide 420 mg tablet 420 mg PO DAILY budesonide-formoterol [Symbicort] 160-4.5 mcg/actuation HFA aerosol inhaler 2 puff inhalation BID 90 Days Qty: 10.2 2RF cholecalciferol (vitamin D3) 50 MCG tablet 2,000 unit PO DAILY famotidine 20 MG tablet 20 mg PO BID Referrals Follow up/Referrals: Jay Cooper [Primary Care Provider] - See instructions Activity Restrictions/Add. Instructions Additional Instructions/Restrictions: At this time it was felt you are safe to be discharged home. If new or worsening symptoms please do not hesitate to return the emergency department. Please follow-up with your family doctor for long-term management of your fibromyalgia. [facility]NT should contact you to schedule an appointment for the fluid that was found behind your left ear which is likely benign. Clinical Impressions Clinical Impression: Abnormal finding on imaging, Fibromyalgia, Back pain, Neck pain Print Language Print Language: Vietnamese Discharge ED Provider: Piero Orantes General Adult HPI General Chief complaint: PAIN Stated complaint: muscle pain upper back and neck Time Seen by Provider: 06/05/24 09:06 Mode of Arrival: Ambulatory Source of Information: Patient Limitations: Physical Limitations Description of Symptoms (Recalled from ER Triage Doc. by RN): Pt. presents to the ED with comlpaints of back pain, starting in the middle of her back and radiating up into her neck and head x 3 days. She rates the pain 10/10. History of Present Illness HPI narrative: Patient is a 59-year-old female with past medical history of fibromyalgia, restless leg syndrome on pregabalin who presents emergency department for evaluation of back and neck pain. Onset was acute, severe, starting in the middle of her upper back over the last 3 days extending into the bilateral neck and head globally. No reported vision changes or vomiting. Denies chest pain or abdominal pain. No trauma. She has had pain like this similar before however it was many years ago and not near as severe. She sleeps on her side and awoke with this pain 3 days ago and is unsure if she slept incorrectly. It has been severely tender and difficult for her to range her neck. No other acute complaints at this time. Related Data Home Medications ?Medication ?Instructions ?Recorded ?Confirmed atorvastatin 10 mg tablet 10 mg PO DAILY Cholesterol 04/15/19 06/05/24 pantoprazole 40 mg tablet,delayed 40 mg PO DAILY GERD 07/08/21 06/05/24 release cholecalciferol (vitamin D3) 50 2,000 unit PO DAILY Supplement 07/27/21 06/05/24 mcg (2,000 unit) tablet famotidine 20 mg tablet 20 mg PO BID acid reflux 10/23/21 06/05/24 donepezil 10 mg tablet 10 mg PO DAILY * 06/09/22 06/05/24 escitalopram oxalate 20 mg tablet 20 mg PO DAILY Depression 06/09/22 06/05/24 folic acid 1 mg tablet 1 mg PO DAILY Supplement 06/09/22 06/05/24 methotrexate sodium 2.5 mg tablet 20 mg PO WEEKLY * 06/09/22 06/05/24 pramipexole 0.125 mg tablet 0.375 mg PO HS RLS 06/09/22 06/05/24 celecoxib 200 mg capsule 200 mg PO BID bones 08/05/22 06/05/24 pregabalin 100 mg capsule 100 mg PO BID nerve pain 08/05/22 06/05/24 magnesium oxide 420 mg tablet 420 mg PO DAILY 03/27/24 06/05/24 Previous Rx's ?Medication ?Instructions ?Recorded budesonide-formoterol HFA 160 2 puff inhalation BID 90 days 03/27/24 mcg-4.5 mcg/actuation aerosol #10.2 grams inhaler (Symbicort) Allergies Allergy/AdvReac Type Severity Reaction Status Date / Time aspirin AdvReac Mild NA-NAUSEA Verified 06/05/24 09:09 codeine AdvReac Mild NA-NAUSEA Verified 06/05/24 09:09 oxycodone (From Percocet) AdvReac Mild NA-NAUSEA Verified 06/05/24 09:09 Sulfa (Sulfonamide AdvReac Mild NA-NAUSEA Verified 06/05/24 09:09 Antibiotics) [facility] Disclaimer: The information contained in this section may have been updated after the patient was seen, as this information can be updated by other users. Medical History Dyspnea on exertion Allergic rhinitis Asthma Sleep apnea Diabetes mellitus, type 2 Hyperlipidemia DEXTER (obstructive sleep apnea) Mild to moderate positional DEXTER, borderline compliance on CPAP, persistent fatigue and hypersomnia, history of rheumatoid arthritis and fibromyalgia, average sleep time 5 hours. Differential diagnosis of hypersomnia include the side effect of medications, poor CPAP compliance, residual hypersomnia w/ DEXTER, poor sleep hygiene, fatigue associated with RA and fibromyalgia. Restless leg syndrome Currently managed by PCP with pramipexole, ferritin level 135 05/18/2022 Low back pain Surgical History History of foot surgery History of lithotripsy History of breast biopsy History of carpal tunnel surgery of right wrist History of cholecystectomy History of partial hysterectomy Family History Other Coronary artery disease Diabetes Heart attack Hyperlipidemia Hypertension Social History Smoking Status: Former smoker years smoked: 30 smoking status stop date: 2006 alcohol intake: current alcohol intake frequency: a few times a month substance use type: denies use current occupational status: other Travel in the last 8 weeks: None household members: spouse housing: house current occupation: [employer] current occupational exposures/hazards: No caffeine: Yes Have you lived/traveled outside [place] in past 30 days?: No Contact w/someone who lives/traveled outside US past 30 days?: No Exposure to someone with infectious disease in past 14 days?: No Do you have a fever (greater than 100.4 F or 38 C)?: No Have you tested positive for COVID-19: No Exposed to someone with COVID-19 in past 14 days?: No Do you have a sore throat?: No Do you have a cough?: No Do you have any weakness?: No Do you have any diarrhea?: No Are you experiencing any unusual bleeding?: No Do you have any muscle aches/pain?: No Do you have any abdominal pain?: No Are you experiencing loss of taste or smell?: No Other Medical History Have you received the Flu Vaccine for this season: Yes Have you received the Pneumonia Vaccine: No ROS Obtained: Yes Systems reviewed as appropriate & no additional complaints except as documented Physical Exam General General appearance: alert Comment: Appearing uncomfortable in bed Head Head exam: atraumatic and normocephalic Eye Eye exam: Present PERRL and EOMI ENT ENT exam: Present mucous membranes moist Neck Neck exam: Present normal inspection and tenderness (Diffuse tenderness to light touch); Absent full ROM Chest Chest inspection: Present normal inspection and symmetric chest wall rise Respiratory Respiratory exam: Present normal lung sounds bilaterally; Absent respiratory distress Cardiovascular Cardiovascular exam: Present regular rate and normal rhythm Abdominal Exam Abdominal exam: Present soft; Absent tenderness Extremities Exam Extremities exam: Present normal inspection and other (Palpable bilateral radial pulses) Back Exam Back exam: Present tenderness (Diffuse tenderness to light touch, no rashes) Neurological Exam Neurological exam: Present alert and CN II-XII intact; Absent motor sensory deficit Psychiatric Psychiatric exam: Present normal affect Skin Skin exam: Present warm and dry Medical Decision Making Medical Records Screening: Per USPSTF and CDC recommendations, given the prevalence of disease in our region, it is our hospital?s policy to screen for HIV and viral Hepatitis for all patients aged 18 and over and those with ongoing risk factors. [place] Inquiry Pt receiving controlled substance: No Vital Signs: 06/05/24 09:11 06/05/24 09:30 06/05/24 10:00 Temperature 98.3 F Temperature Source Oral Pulse Rate 76 74 Pulse Rate [Right Brachial] 78 Respiratory Rate 16 Blood Pressure 123/77 126/95 H Blood Pressure [Right Arm] 116/78 Blood Pressure Mean [Right Arm] 90 Blood Pressure Source [Right Arm] Automatic Cuff Blood Pressure Position [Right Arm] Sitting 02 Sat by Pulse Oximetry 97 96 98 Oxygen Delivery Method Room Air Room Air Room Air 06/05/24 10:57 06/05/24 11:00 06/05/24 11:30 Temperature Temperature Source Pulse Rate 73 70 72 Pulse Rate [Right Brachial] Respiratory Rate Blood Pressure 124/68 127/80 124/85 Blood Pressure [Right Arm] Blood Pressure Mean [Right Arm] Blood Pressure Source [Right Arm] Blood Pressure Position [Right Arm] 02 Sat by Pulse Oximetry 96 97 99 Oxygen Delivery Method Room Air Room Air Room Air Lab Data Lab Results 06/05/24 09:50: WBC 10.4, RBC 4.63, Hgb 14.1, Hct 42.2, MCV 91.1, MCH 30.5, MCHC 33.4, RDW 15.0, Plt Count 228, MPV 10.7 H, Neut % (Auto) 77.7, Lymph % (Auto) 14.0, [place] % (Auto) 6.5, Eos % (Auto) 0.9, Baso % (Auto) 0.6, Neut # (Auto) 8.1 H, Lymph # (Auto) 1.5, [place] # (Auto) 0.7, Eos # (Auto) 0.1, Baso # (Auto) 0.1, Sodium 138, Potassium 4.3, Chloride 102, Carbon Dioxide 31 H, Anion Gap 9.3, BUN 20 H, Creatinine 1.00, Estimated Creat Clear 69, Estimated GFR 56 L, Est GFR ( Amer) 68, Glucose 104 H, Calcium 9.4, Total Bilirubin 1.0, AST 34, ALT 38, Alkaline Phosphatase 99, Total Protein 6.8, Albumin 4.1, Globulin 2.7, Albumin/Globulin Ratio 1.5, SARS-CoV-2 (PCR) Not detected, Influenza A Untype (PCR) Not detected, Influenza Type B (PCR) Not detected 06/05/24 09:50 06/05/24 09:50 Orders (Tests/Meds): ED MEDICATIONS Discontinued Medications Generic Name Dose Route Start Last Admin Trade Name Freq PRN Reason Stop Dose Admin Acetaminophen 1,000 mg 06/05/24 09:19 06/05/24 09:56 Acetaminophen 1,000mg/100ml Vial IV 06/05/24 09:20 1,000 mg ONCE ONE Administration Iopamidol 80 ml 06/05/24 10:33 06/05/24 10:34 Iopamidol-370 (76%);100ml Bottle IV 06/05/24 10:34 80 ml ONCE ONE Administration Iopamidol 80 ml 06/05/24 10:35 06/05/24 10:35 Iopamidol-370 (76%);100ml Bottle IV 06/05/24 10:36 80 ml ONCE ONE Administration Ketorolac Tromethamine 30 mg 06/05/24 12:20 06/05/24 12:15 Ketorolac 30mg/Ml Vial IV 06/05/24 12:21 30 mg ONCE ONE Administration Lidocaine 1 each 06/05/24 09:19 06/05/24 09:56 Lidocaine 5% Transdermal Patch TP 06/05/24 09:20 1 each ONCE ONE Administration Methocarbamol 1,000 mg 06/05/24 09:20 06/05/24 09:56 Methocarbamol 500mg Tablet PO 06/05/24 09:21 1,000 mg ONCE ONE Administration Sodium Chloride 50 ml 06/05/24 10:33 06/05/24 10:34 0.9 % Sodium Chloride 50 Ml Vial IV 06/05/24 10:34 50 ml ONCE ONE Administration Sodium Chloride 10 ml 06/05/24 10:33 06/05/24 10:34 Sodium Chloride 0.9% 10ml Syr (Rad Only) IV 06/05/24 10:34 10 ml ONCE ONE Administration Sodium Chloride 50 ml 06/05/24 10:35 06/05/24 10:35 0.9 % Sodium Chloride 50 Ml Vial IV 06/05/24 10:36 50 ml ONCE ONE Administration Sodium Chloride 10 ml 06/05/24 10:35 06/05/24 10:35 Sodium Chloride 0.9% 10ml Syr (Rad Only) IV 06/05/24 10:36 10 ml ONCE ONE Administration ORDERS Category Date Time Status CT angio chest - dissection Stat Cat Scan 06/05/24 09:[address] angio head Stat Cat Scan 06/05/24 09:[address] angio neck Stat Cat Scan 06/05/24 09:[address] head/brain wo con Stat Cat Scan 06/05/24 09:19 Completed CBC w/Auto Diff [Complete Blood Count Auto Diff] Stat Lab 06/05/24 09:50 Completed CMP [Comprehensive Metabolic Panel] Stat Lab 06/05/24 09:50 Completed Rapid PCR Covid and Flu A/B Stat Lab 06/05/24 09:50 Completed Medical Decision Narrative: In summary patient is 59-year-old female past medical history described above presents emergency department for evaluation of back and neck pain. Patient is hemodynamically stable and appearing in pain upon arrival, afebrile. Differential includes thoracic dissection, vertebral artery dissection, fibromyalgia, among others. I do suspect fibromyalgia given her discordant amount of pain to light touch however never having something like this before and the severity warrants diagnostic imaging. Workup we conducted with hematologic labs. Initial inventions include methocarbamol, IV Tylenol, lidocaine patch, trigger point injections. Hematologic labs reviewed by me and are nonactionable, no significant leukocytosis, no LAN or critical electrolyte abnormality. Viral swab negative. Noncontrasted CT scan informally visualized by me no acute large intracranial hemorrhage. Formal read shows small amount of fluid in the left mastoid air cells no acute osseous abnormality, chronic right maxillary sinusitis. CTA head, neck, chest no acute pathology. Upon repeat evaluation patient had moderate resolution of pain. I examined patient's ears, she has no middle ear effusions bilaterally, no anterior effacement of the left pinna, no retroauricular tenderness. The case discussed with [facility] ENT Dr. Marques who agrees this is likely an incidentaloma and not contributing to patient's picture. Fluid is likely chronic and not software support representative of acute mastoiditis and patient is appropriate for routine outpatient management which will be arranged by . No antibiotics are indicated. Given this I suspect her pain is secondary to fibromyalgia and patient is appropriate for outpatient management at this time will be discharged with lidocaine patches. Procedure: Procedure performed was trigger point injections. Procedure performed by Piero Orantes. Using ultrasound over the areas of most significant pain over the posterior neck soft tissue muscles were identified going greater than 3 cm deep providing significant margin of safety, no venous or arterial flow. 2 points of maximum severity of tenderness were identified by the patient, skin was cleaned with alcohol and 3 cc of 1% lidocaine with epinephrine was injected into each trigger point. Patient tolerated procedure well. There were no immediate complications. Critical Care Critical Care Time Critical Care Time: No
--- NOTE | 2024-06-05 09:21 | CT_ITS ---
FINAL REPORT TECHNIQUE: Axial imaging of the chest is obtained after the administration of contrast. 3-D MIP reformatted images were also obtained and reviewed per PE protocol. This study was performed with techniques to keep radiation doses as low as reasonably achievable, (ALARA). Individualized dose reduction techniques using automated exposure control or adjustment of mA and/or kV according to the patient's size were employed. CLINICAL HISTORY: severe midline back pain COMPARISON: None FINDINGS: The pulmonary arteries are well filled. There is no evidence of pulmonary embolus. There is no aortic dissection. Heart size is normal. There is no mediastinal, hilar, or axillary lymphadenopathy. There are no suspicious nodules identified. There is no consolidation. Early emphysematous changes are noted. There are no pleural effusions. There is a small pericardial effusion. Limited evaluation of the upper abdomen is without acute abnormality. No acute osseous abnormality. IMPRESSION: No evidence of pulmonary embolism or aortic dissection. Reviewed, Interpreted and Dictated by Brandi Faye MD Transcribed by Iesha Berry Authenticated and [facility]
[2024-06-05] MEDS: METHOCARBAMOL 500MG TABLET 1000 MG PO (09:56)
[2024-06-05] MEDS: LIDOCAINE 5% TRANSDERMAL PATCH 1 EACH TP (09:56)
[2024-06-05] MEDS: ACETAMINOPHEN 1,000MG/100ML VIAL 1000 MG IV (09:56)
[2024-06-05 09:59] LABS: Coronavirus 19, PCR Not Detected (NotDetected); Influenza A, PCR Not Detected (NotDetected); Influenza B, PCR Not Detected (NotDetected)
[2024-06-05 10:00] LABS: Basophils # 0.1 K/mm3 (0-0.2); Basophils % 0.6 % (0.1-2.0); Eosinophils # 0.1 K/mm3 (0.0-0.4); Eosinophils % 0.9 % (0.1-12.0); Hematocrit 42.2 % (37.0-47.0); Hemoglobin 14.1 g/dL (12.2-16.2); Lymphocytes # 1.5 K/mm3 (0.7-4.5); Mean Corpuscular HGB Conc 33.4 g/dL (31.8-35.4); Mean Corpuscular Hemoglobin 30.5 pg (27.0-31.2); Mean Corpuscular Volume 91.1 fl (81-99); Mean Platelet Volume 10.7 fl (7.4-10.4); Monocytes # 0.7 K/mm3 (0.1-1.0); Monocytes % 6.5 % (1.7-9.3); Neutrophils # 8.1 K/mm3 (1.8-7.8); Neutrophils % 77.7 % (37.0-80.0); Platelet Count 228 K/mm3 (142-424); Red Blood Count 4.63 M/mm3 (4.20-5.40); White Blood Count 10.4 K/mm3 (4.8-10.8)
[2024-06-05 10:09] LABS: Alanine Aminotransferase 38 U/L (12-78); Albumin Level 4.1 g/dl (3.5-5.0); Albumin/Globulin Ratio 1.5 (1.1-1.8); Alkaline Phosphatase 99 U/L (38-126); Anion Gap 9.3 mEq/L (5-15); Aspartate Amino Transferase 34 U/L (14-36); Blood Urea Nitrogen 20 mg/dl (7-17); Calcium 9.4 mg/dl (8.4-10.2); Carbon Dioxide 31 mmol/L (22.0-30.0); Chloride 102 mmol/L (98-107); Creatinine Clearance Estimated 69 mL/min (50-200); Estimated Glomerular Filt Rate 56 ml/min (>60); GFR (African American) 68 ML/MIN (>60); Globulin 2.7 g/dL (1.3-3.2); Glucose 104 mg/dl (74-100); Potassium 4.3 mmoL/L (3.5-5.1); Sodium 138 mmol/L (136-145); Total Protein,Serum 6.8 g/dl (6.3-8.2)
[2024-06-05] MEDS: SODIUM CHLORIDE 0.9% 10ML SYR (RAD ONLY) 10 ML IV ×2 (10:34→10:35)
[2024-06-05] MEDS: IOPAMIDOL-370 (76%);100ML BOTTLE 80 ML IV ×2 (10:34→10:35)
[2024-06-05] MEDS: 0.9 % SODIUM CHLORIDE 50 ML VIAL IV ×2 (10:34→10:35)
--- NOTE | 2024-06-05 10:42 | PC.NURSE ---
I rounded on the pt. no new complaints at this time. I took the pt a warm blanket. call pierson in reach.
--- NOTE | 2024-06-05 12:04 | PC.NURSE ---
Called [facility] per Dr. Orantes for an ENT consult for mastoiditis, stated that they would give us a call back.
--- NOTE | 2024-06-05 12:09 | PC.NURSE ---
Pt. given snack and drink.
--- NOTE | 2024-06-05 12:09 | PC.NURSE ---
Dr. Orantes speaking to [employer].
[2024-06-05] MEDS: KETOROLAC 30MG/ML VIAL 30 MG IV (12:15)
--- NOTE | 2024-06-05 12:32 | PC.NURSE ---
speaking with [facility]
== END 2024-06-05 13:11 | disposition home or self-care (01) ==
PROVIDERS: Emergency Provider Emergency Medicine; PCP Family Medicine
DX: M79.7 Fibromyalgia (principal); R93.89 Abnormal findings on diagnostic imaging of other specified body structures; M54.9 Dorsalgia, unspecified; M54.2 Cervicalgia
CPT/HCPCS: 70450; 70496; 70498; 71275; 80053; 85025; 87636; 96374; 96375; 99285; J0131; J1885; Q9967

== ENCOUNTER 2024-09-11 16:42 | Outpatient (CLI) | payer BC, SELFPAY ==
--- NOTE | 2024-09-11 17:07 | XR_ITS ---
PROCEDURE INFORMATION: Exam: XR Right Ankle Exam date and time: 09/11/2024 4:58 PM Age: 59 years old Clinical indication: Pain; Ankle; Right; Additional info: Pain and swelling of right ankle TECHNIQUE: Imaging protocol: Radiologic exam of the right ankle. Views: 3 or more views. COMPARISON: No relevant prior studies available. FINDINGS: Bones/joints: No acute fracture identified. Soft tissues: Soft tissue swelling laterally. IMPRESSION: Soft tissue swelling. No evident fracture.
[2024-09-11 22:21] LABS: Uric Acid 4.6 mg/dl (2.5-6.2)
--- OUTSIDE RECORDS SUMMARY | 2024-09-13 21:40 | XMS_ITS ---
Author Organization [facility] Address [address] [place] [address] Phone Care Team Providers Care Maitre D Name Role Phone Muriel MARIA INESBrady Díaz Unavailable [phone] Plan of Treatment No Plan of Treatment Recorded Assessments Includes: Assessments for all patient encounters No Assessments Recorded Medical Equipment - Implanted Devices Includes: Current and historical Devices No Medical Equipment Recorded Medications Administered Includes: Administered Medications in patient's chart No Administered Medications Recorded Results Includes: Results from 09/14/2023 through 09/13/2024 No Results Recorded For Specified Dates History of Present Illness History of Present Illness not supported for this document type No History of Present Illness Recorded Social History No Social History Recorded - Smoking Status Unknown Medical History Includes: Medical History in patient's chart No Medical History Recorded Family History Includes: Family History in patient's chart No Family History Recorded Review of Systems Review of Systems not supported for this document type No Review of Systems Recorded Mental Status No Mental Status Recorded Functional Status No Functional Status Recorded Physical Exam Physical Exam not supported for this document type No Physical Exam Recorded Insurance Includes: Active Insurance Policies Plan Name Member ID Group # Subscriber Relationship Effect leodan Dates 1 - [facility] [id number] Opal Villalobos [facility] Clinical Notes Includes: Signed Clinical Notes starting from 05/20/2022 No Clinical Notes Recorded
--- OUTSIDE RECORDS SUMMARY | 2024-09-13 21:40 | XMS_ITS ---
Care Plan - [facility], [facility] Created on: September 13, 2024 Opal Amador : 1965 Sex: Female Author Organization [facility] Address [address] [place] [address] Phone Care Team Providers Care District Wildlife Manager Name Role Phone Brady Llamas DPM Unavailable [phone]
== END 2024-09-11 23:59 | disposition home or self-care (01) ==
LOC: RAD 16:44
PROVIDERS: PCP Family Medicine; Visit Provider Nurse Practitioner
DX: M25.571 Pain in right ankle and joints of right foot (principal); M25.471 Effusion, right ankle; M10.9 Gout, unspecified
CPT/HCPCS: 73610; 84550

== ENCOUNTER → 2024-10-12 10:20 | Outpatient (CLI) | payer BC, SELFPAY ==
--- OUTSIDE RECORDS SUMMARY | 2024-10-12 10:22 | XMS_ITS | Data Portability ---
Author Organization [place] [facility], [facility] Address [address] [place] [address] Assessment Encounter Date Assessment Date Assessment LastModified by Organization Details LastModified Time 01/10/2024 01/10/2024 Patient is a pleasant 58-year-old female who presents today for follow-up of her first lumbar medial branch block bilaterally L4-L5 and L5-S1. Today she rates her pain a 6 out of 10. Patient denies any new trauma or injury. She does state that for the first few days nothing seem to work however after that the steroid injection did seem to kick in and gave upwards of 70 to 80% relief. Patient states the pain was much better and not as severe. She states she was able to move around easier with overall lower pain scale on a daily basis. Patient does state that she has continued to do conservative treatments such as oral medication, heat and ice and topicals with minimal relief. Patient has tried and failed conservative therapy of continued at home exercising and stretching for longer than 6 weeks. Patient is prescribed compounded cream and pregabalin 150 mg twice daily from an outside provider. Her Milton is [phone]. Its been reviewed and is appropriate. Patient did have a successful first lumbar medial branch block with 70 to 80% relief lasting 2 to 4 weeks. Patient did have improved function with decreased pain. I have discussed with the patient that she may benefit from repeat lumbar medial branch block. Risk and benefits were discussed with patient and she would like to proceed forward with this plan of care. Patient is not on any blood thinners. Patient has tried and failed conservative therapy including continued at home stretching exercise for longer than 6 weeks. We will submit to insurance for her second lumbar medial branch block bilaterally L4-L5 and L5-S1 under fluoroscopy. If the patient does have a second successful lumbar medial branch block we will plan on proceeding forward with lumbar RFA at a later date. Patient has been instructed to contact the clinic with any concerns before the next appointment. Dr. Plascencia has reviewed this note and agrees with this plan of care. This note was dictated using voice recognition software and may contain errors or omissions. [email or web address] Not available 01/10/2024 10:58:50 01/26/2024 01/26/2024 This patient had diagnostic medial branch block #2 bilateral L4-5 and L5-S1. This was done with local anesthetic only. Will follow-up with this patient in 1 to 2 weeks. This will be a telemedicine visit since she does have a long drive to come to clinic. Will evaluate efficacy of this diagnostic block #2. If successful we will plan on RF ablation with a continuous burn at 80 ??[email or web address] Not available 01/26/2024 09:18:44 02/10/2024 02/10/2024 Patient is a pleasant 59-year-old female that presents today for follow-up via telehealth. She is in her home in no distress. She is currently being treated for degenerative disc disease of the lumbar spine with lumbar radiculopathy as well as lumbar facet arthropathy Urgently the patient was also being treated for CRPS this was determined at her admission visit. She received her second medial branch block injection to bilateral L4-5 and L5-S1 on 01/25/2022. The patient reports only 30% improvement in her symptoms. She states the second injection did not work as well as the first. I explained to the patient this is considered a failed injection. We have been working the patient up for SCS placement however due to caring for her she is attempting to postpone that procedure. The patient reports previous lumbar epidural steroid injection from November 17, 2023 did provide relief in her symptoms. She reports 80% improvement from that injection. She would like to schedule repeat epidural. The patient is prescribed Lyrica 150 mg from her primary care provider. Her Milton number is [phone]. Imaging: EMG 05/25/2023 Impression: This was an abnormal electrodiagnostic study. Today's findings are suggestive of: 1. 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 Plan: I am scheduling the patient for lumbar epidural steroid injection to L5-S1 procedure risk and benefits were all discussed with the patient. Orginally the patient was being treated for CRPS of the bilateral lower extremity. According to admission visit. Review of the patient's record does not show updated imaging of the lumbar spine only EMG. We are attempting to find updated imaging of the lumbar spine before moving forward with SCS placement. If no updated imaging is available she may require MRI. Dr. Plascencia has reviewed this chart and agrees with this plan of care. This note was dictated with voice recognition software and may contain errors or omission Patient is an established patient with their informed consent to treat signed and on file. Patient was verbally authenticated based on the demographic information in the patient? s file. Patient was given choice of telehealth ([place]) visit. telephone visit, or office visit; patient chose telephone visit due to [facility]- state of [facility]. This visit is being conduct via telephone ([place]) in accordance to all applicable laws and regulations. Patient is located in the [facility] and the treating medical provider is located in the [facility]. The telephone call was conducted for approximately mins.15 [email or web address] Not available 02/10/2024 12:58:14 03/21/2024 03/21/2024 This patient had a interlaminar L5-S1 lumbar epidural steroid injection done today. She continues on her Lyrica 150 mg given to her by her primary care provider. We are needing updated imaging of her lumbar spine.We will order lumbar MRI to obtain new imaging of her lumbar spine and consideration of possible SCS Trial in the future. Patient continues to do a home exercise program. She continues to have increasing low back pain radiating to both hips and down both legs all the way to her feet. [email or web address] Not available 03/21/2024 15:47:19 04/19/2024 04/19/2024 This is a pleasa nt 59-year-old female who presents today for injection follow-up. Patient underwent interlaminar L5-S1 lumbar epidural steroid injection on 03/21/2024. Patient states that she had 80% relief in symptoms for around 1 week, she is upset that it did not last very long. Patient states her pain has gotten worse, rating her pain an 8 out of 10 on the pain scale. Her insurance consultant took her off of her Celebrex and lowered her methotrexate due to decreased liver and kidney function. She states she is having a difficult time managing her pain with oral medications due to this.Patient did receive updated MRI of her lumbar spine, this demonstrated worsening degenerative changes as described below. We had discussed spinal cord stimulator in the past, patient states she is unable to right now as she is caring for her and cannot afford the downtime associated with surgery. [facility] #[id number], drug screen from 11/18/2023 was reviewed and was appropriate. Imaging: MRI lumbar spine, 04/05/2024: Alignment of lumbar spine unremarkable degenerative disc disease at all levels the bone marrow signal intensity is unremarkable L1-2: Circumferential disc bulge with central disc extrusion and annular tear that extends inferiorly there is mild facet arthropathy there is no neuroforaminal narrowing there is no spinal canal narrowing L2-3: There is a minimal disc bulge there is mild facet arthropathy there is no neural foraminal narrowing there is no spinal canal narrowing L3-4: There is a minimal disc bulge there is mild facet arthropathy there is no neural foraminal narrowing there is no spinal canal narrowing L4-5: There is a circumferential disc bulge with right paracentral foraminal and extraforaminal zone disc protrusion there is ligamentum flavum hypertrophy this bilateral lateral recess narrowing right side greater than left there is moderate facet arthropathy there is mild right neural foraminal narrowing there is mild spinal canal narrowing L5-S1: There is a minimal disc bulge there is mild facet arthropathy there is no neuroforaminal narrowing there is no spinal canal narrowing Plan: We are referring patient to neurosurgery for further evaluation of patient's low back pain. She has received several injections with our clinic including lumbar epidural steroid injection and medial branch blocks without relief in symptoms. She has not seen a neurosurgeon before and has not had surgery on her back. Per patient, due to her declining liver and kidney function she is not a candidate for oral pain relieving medications at this time. We are prescribing patient Rx alternatives compound cream to assist with her worsening pain and to hold her over until she can get into neurosurgery. We will see patient back in office in 1 month, at this visit we will review neurosurgery notes and evaluate the efficacy of the compound cream at helping with her symptoms. [email or web address] Not available 04/19/2024 16:58:38 Plan of Treatment Reminders Order Date Submit Date Provider Last Modified By Organization Details Last Modified Time Details Appointments None recorded. Lab None recorded. Referral neurologica l surgeon referral 2023 024 [email or web address] Tereso Carlson MD, [address] [place], [address], 5 08:16:15 Procedures medial branch block, lumbar (PROC) - lisa l4-l5, l5-s1 2023 024 [email or web address] Not available 11:23:44 Surgeries None recorded. Imaging MRI, lumbar spine, w/o contrast 2023 024 [email or web address] [facility], [address] [facility], [place] [address], [place], [address], 4 08:04:48 Medication Orders RX ALTERNATIVE S NEUROPATHIC PAIN CREAM 2023 024 [facility], [address], [phone], 4 17:57:52 Patient TargetsNo targets recorded. Patient InstructionsNo instructions recorded. Reason for Referral Neurological Surgeon Referra l for Degeneration of lumbar intervertebral disc Referring Physician: Pro Plascencia, Pain Management, [phone] Encounter Date: 04/19/2024 Results Created Date Observation Date Name Description Value Unit Range Abnormal Flag Note LastModifiedBy Organization Detail LastModifiedTime 04/20/20 24 MRI, lumba r spine , w/o contr ast No observ ation record ed. [email or web address] Not Available 2023 08:04:40 Result Notes None recorded. Problems Name Problem SNOMED Code Status Onset Date Resolution Date Notes Provider Name and Address Organization Details Recorded Time Degeneration of lumbar intervertebral disc 40695675 Active 2023 Pro Plascencia MD [address] [facility] [address], [place], [address], [facility] 4 21:53:34 Lumbar radiculopathy 406489470 Active 2023 rPo Plascencia MD [address] [facility],[address], [address], [place] [facility] 4 21:53:34 Lumbar spondylosis 993277487 Active 2023 Pro Plascencia MD [address] [facility],[address], [address], [place] [facility] 4 21:53:35 Foot pain 21671894 Active 2023 Pro Plascencia MD [address] [facility],[address], [address], [place] [facility] 21:53:37 Arthropathy of lumbar facet joint 889119045 Active 2023 Pro Plascencia MD [address] [facility],[address], [address], [place] [facility] 09:19:02 Problem Notes None recorded. Procedures Surgical History Date Name Laterality Status Provider Name and Address Organization Details Recorded Time 03/21/20 Lumbar ISH: Interlaminar completed Pro Plascencia MD [address] [facility],[address], [address], [place] [facility] 03/21/2024 15:44:19 01/26/20 Diagnostic Lumbar MBB: 2 Level Bilateral completed Pro Plascencia MD [address] [facility],[address], [address], [place] [facility] 01/26/2024 09:11:51 12/28/19 Diagnostic Lumbar MBB: 2 Level Bilateral completed Pro Plascencia MD [address] [facility],[address], [address], [place] [facility] 12/28/2023 10:48:44 11/17/19 Lumbar ISH: Interlaminar completed Pro Plascencia MD [address] [facility],[address], [address], [place] [facility] 11/17/2023 15:56:26 08/22/19 24 SCS Leads Removal completed ISABELA TOMAZIC, [employer]PERATOR [address] [facility] [address], [place], [address], [place] [facility] 08/22/2023 15:55:23 08/11/19 24 SCS Trial completed Pro Plascencia MD [address] ,[facility] [address], [place], [address], [place] [facility] 08/11/2023 21:51:53 06/20/19 24 Ankle Brachial Index completed MELINDA HORN [place] [facility] 06/20/2023 11:44:52 06/20/19 24 Heart Rate Variability completed MELINDA HORN [place] [facility] 06/20/2023 11:44:41 06/20/19 24 Sudomotor completed MELINDA HORN [place] [facility] 06/20/2023 11:44:47 06/06/19 07 procedure on gallbladder completed Loan Winn [place] [facility] 06/20/2023 11:03:51 06/06/18 88 Hysterectomy completed Loan Winn [place] [facility] 06/20/2023 11:03:35 Imaging Results Imaging Date Name Status LastModified by Organiz ation Details LastModified Time 04/20/2024 MRI, lumbar spine, w/o contrast completed Information not available 04/20/2024 08:04:40 Procedure Notes None recorded. Medical Equipment None Reported. Allergies Allergen ID Allergen Name Allergen Category Reaction Reaction Severity Criticality Documentation Date Start Date Code Code System Note Provider Name and Address Organization Details Recorded Time 4272 Non-stero idal anti-infl ammatory agent (product) medicatio n nausea Not available Not available 06/20/2023 24407 005 SNOMED Loan Winn null, [place] [facility] 11:22:17 Medications Name Sig Start Date Stop Date Status Note LastModified by Organization Details LastModified Time RX ALTERNATIVE S NEUROPATHIC PAIN CREAM 1-2 gm to affected area as needed 3-4x per day. 2023 active Not Available Not Available Not Avai lable pipette kit 5 ML PIPETTE x 4, 4 OZ MIXING JAR, DIRECTION S FOR USE (PIP) active Not Available Not Available No t Available clindamycin /mupirocin/ itraconazol e 150/20/50mg topical capsule [32691] MIX THE CONTENTS OF 1 CAPSULE WITH DILUENT. APPLY TO AFFECTED AREAS. PERFORM TWICE DAILY. active Not Available Not Available No t Available atorvastati n 10 mg tablet Take 1 tablet every day by oral route. active Not Available Not Available No t Available donepezil 10 mg tablet active Not Available Not Available Not Available prednisone 5 mg tablet active Not Available Not Available Not Available sulfamethox azole 800 mg-trimetho prim 160 mg tablet Take 1 tablet every 12 hours by oral route for 5 days. active Not Available Not Available No t Available doxycycline monohydrate 100 mg tablet active Not Available Not Available Not Available terbinafine HCl 250 mg tablet active Not Available Not Available Not Available methotrexat e sodium 2.5 mg tablet active Not Available Not Available Not Available benzonatate 100 mg capsule active Not Available Not Available Not Available pantoprazol e 40 mg tablet,ganga yed release active Not Available Not Available Not Available erythromyci n 5 mg/gram (0.5 %) eye ointment active Not Available Not Available Not Available pramipexole 0.125 mg tablet active Not Available Not Available Not Available pramipexole 0.25 mg tablet Take 1 tablet 3 times a day by oral route. 06/20 completed Not Available Not Available Not Available folic acid 1 mg tablet active Not Available Not Available Not Available mupirocin 2 % topical ointment active Not Available Not Available Not Available methylpredn isolone 4 mg tablets in a dose pack active Not Available Not Available Not Available celecoxib 100 mg capsule active Not Available Not Available Not Available amoxicillin 875 mg-potassiu m clavulanate 125 mg tablet active Not Available Not Available Not Available escitalopra m 20 mg tablet active Not Available Not Available Not Available pregabalin 150 mg capsule TAKE ONE CAPSULE BY MOUTH 3 TIMES A DAY active Not Available Not Available No t Available Celebrex active Not Available Not Avai lable Not Available pantoprazol e active Not Available Not Available Not Available Lexapro 06/20 completed Not Available Not Available Not Available Lyrica active Not Available Not Availa ble Not Available Symbicort 160 mcg-4.5 mcg/actuati on HFA aerosol inhaler active Not Available Not Available Not Available diclofenac 1.5 % topical drops APPLY TO AFFECTED NAILS BEFORE USING SOLUTION/ OINTMENT TREATMENT (30 DAY SUPPLY) active Not Available Not Available No t Available cefixime 400 mg capsule MIX THE CONTENTS OF 1 CAPSULE WITH DILUENT. APPLY TO AFFECTED AREAS. PERFORM TWICE DAILY. active Not Available Not Available No t Available guaifenesin ER 600 mg tablet, extended release 12 hr active Not Available Not Available Not Available gabapentin 10 % topical cream in packet active Not Available Not Available Not Available Wegovy 0.25 mg/0.5 mL subcutaneou s pen injector active Not Available Not Available Not Available Zepbound 5 mg/0.5 mL subcutaneou s pen injector active Not Available Not Available Not Available Zepbound 2.5 mg/0.5 mL subcutaneou s pen injector active Not Available Not Available Not Available Vitals Date Recorded Body height Heart rate Respiratory rate Heart rate Oxygen saturation Oxygen saturation in Arterial blood by Pulse oximetry Pain severity - 0-10 verbal numeric rating [Score] - Reported Systolic blood pressure Diastolic blood pressure Provider Name and Address Organization Details Last Updated DateTime 4 165.1 cm 65 /min 18 /min 64 /min 98 % 98 % 5 127 mm[Hg] 71 mm[Hg] Loan Alanado [place] - [facility] 4 10:07:28 Date Recorded Body height Heart rate Respiratory rate Heart rate Oxygen saturation Oxygen saturation in Arterial blood by Pulse oximetry Pain severity - 0-10 verbal numeric rating [Score] - Reported Systolic blood pressure Diastolic blood pressure Provider Name and Address Organization Details Last Updated DateTime 4 165.1 cm 60 /min 18 /min 60 /min 98 % 98 % 8 135 mm[Hg] 70 mm[Hg] Loan Alanado [place] [facility] 4 08:30:25 Date Recorded Body height Body mass index (BMI) Body weight Heart rate Oxygen saturation Oxygen saturation in Arterial blood by Pulse oximetry Pain severity - 0-10 verbal numeric rating [Score] - Reported Systolic blood pressure Diastolic blood pressure Provider Name and Address Organization Details Last Updated DateTime 4 165.1 cm 28.5 kg/m2 33990.3 g 66 /min 98 % 98 % 9 134 mm[Hg] 72 mm[Hg] CARIN PAREKH [place] [facility] 4 14:28:12 Date Recorded Body height Body mass index (BMI) Body weight Oxygen saturation Oxygen saturation in Arterial blood by Pulse oximetry Heart rate Pain severity - 0-10 verbal numeric rating [Score] - Reported Systolic blood pressure Diastolic blood pressure Provider Name and Address Organization Details Last Updated DateTime 4 165.1 cm 28.5 kg/m2 58231.3 g 98 % 98 % 68 /min 8 132 mm[Hg] 74 mm[Hg] CARIN PAREKH [place] [facility] 4 15:13:04 Social History Question Answer Notes LastModified by Organizat ion Details LastModified Time Tobacco Smoking Status Former Smoker Loan Winn [place], [place] [facility] 06/20/2023 11:03:10 Do You Have An Advance Directive? No [email or web address] Information n ot available 06/20/2023 What Is Your Level Of Alcohol Consumption? None [email or web address] Information not available 06/20/2023 In The 14 Days Before Symptom Onset, Have You Had Close Contact With A Laboratory-confirm ed COVID-19 While That Case Was Ill? No [email or web address] Information n ot available 07/18/2023 In The 14 Days Before Symptom Onset, Have You Had Close Contact With A Person Who Is Under Investigation For COVID-19 While That Person Was Ill? No [email or web address] Information not available 07/18/2023 Have You Been To An Area Known To Be High Risk For COVID-19? No [email or web address] Information not available 07/18/2023 Are You Currently Employed? Yes [email or web address] Information not available 06/20/2023 Do You Have A Medical Power Of Business Mail Entry Clerk? No [email or web address] Information not available 06/20/2023 Do You Use Any Illicit Or Recreational Drugs? No [email or web address] Information not available 06/20/2023 Do You Or Have You Ever Used Any Other Forms Of Tobacco Or Nicotine? No [email or web address] Information not available 06/20/2023 Sex: Unknown Functional Status None recorded. Mental Status None recorded. Family History Nothing Reported. Medical History Condition Response Coronary Artery Disease N Gout N Hernia N Head Trauma/Injury N Thyroid Problems N Depression N COPD N Anemia N Heart Attack ([place]) N Ulcers N Diabetes N Anxiety Disorder Y Bleeding Disorder N Arthritis Y Tuberculosis N AIDS/HIV N Acid Reflux (GERD) N Cancer N Stroke N Asthma N Substance Abuse N Back Injury N High Cholesterol Y Hepatitis N Liver Disease N Heart Disease N Headaches N Fibromyalgia Y Hypertension N Osteoporosis Y Kidney Disease N Gynecological HistoryNo gynecological history recorded. 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 592636603 G90.529 [id number] ISABELA ESTES NP [address] [place] [address] 07/18/2023 14:48:11 07/18/2023 15:29:23 Foot pain 53345599 M79.673 Idiopathic small fiber peripheral neuropathy 2619398208 54227 G60.8 Mononeurop athy of lower limb 076061128 G57.90 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 399068274 G90.529 [id number] Pro Plascencia MD [address] [place] [address] 3 08/11/2023 09:11:36 08/11/2023 11:06:15 Foot pain 07152858 M79.671 M79.672 Degenerati on of lumbar intervertebral disc 54696564 M51.36 Lumbar radiculopathy 128 771921 M54.16 Lumbar spondylosis 90440 0009 M47.896 Idiopathic peripheral neuropathy 12644906 G60.9 [id number] Pro Plascencia MD [address] [place] [address] 3 08/18/2023 08:42:58 08/18/2023 10:23:33 Lumbar radiculopathy 291016510 M54.16 Degenerati on of lumbar intervertebral disc 59339052 M51.36 Foot pain 05108623 M79.6 71 M79.672 Lumbar spondylosis 92546 0009 M47.896 [id number] ISABELA ESTES NP [address] [place] [address] 08/22/2023 14:07:00 08/22/2023 14:45:11 Lumbar radiculopathy 498281725 M54.16 Lumbar spondylosis 30827 0009 M47.896 Degenerati on of lumbar intervertebral disc 80376041 M51.36 Foot pain 25147890 M79.6 71 M79.672 Idiopathic small fiber peripheral neuropathy 7830595524 12721 G60.8 Mononeurop athy of lower limb 667450392 G57.90 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 395125316 G90.529 [id number] Pro Plascencia MD [address] [place] [address] 10/13/2023 15:17:07 10/13/2023 19:55:00 Lumbar radiculopathy 464190742 M54.16 Degenerati on of lumbar intervertebral disc 67001731 M51.36 Foot pain 10613132 M79.6 71 M79.672 Lumbar spondylosis 50453 0009 M47.896 [id number] Pro Plascencia MD [address] [place] [address] 11/17/2023 14:43:50 11/17/2023 15:58:19 Lumbar radiculopathy 309899185 M54.16 Degenerati on of lumbar intervertebral disc 08228826 M51.36 Lumbar spondylosis 24512 0009 M47.896 [id number] Pro Plascencia MD [address] [place] [address] 12/12/2023 09:15:18 12/12/2023 09:39:24 Lumbar spondylosis [id number] M47.896 Degenerati on of lumbar intervertebral disc 41530349 M51.36 Lumbar radiculopathy 128 296397 M54.16 Foot pain 45013835 M79.6 71 M79.672 Arthropath y of lumbar facet joint 573455155 M47.816 [id number] Pro Plascencia MD [address] [place] [address] 12/28/2023 09:41:27 12/28/2023 10:27:08 Lumbar radiculopathy [id number] M54.16 Degenerati on of lumbar intervertebral disc 57855314 M51.36 Lumbar spondylosis 64917 0009 M47.896 Foot pain 27171725 M79.6 71 M79.672 [id number] Melisa Arteaga NP [address] [place] [address] 3 01/10/2024 09:52:49 01/10/2024 10:29:36 Lumbar spondylosis [id number] M47.896 [id number] Pro Plascencia MD [address] [place] [address] 01/26/2024 08:13:39 01/26/2024 09:10:49 Lumbar radiculopathy 206351175 M54.16 Degenerati on of lumbar intervertebral disc 60264180 M51.36 Lumbar spondylosis 99191 0009 M47.896 Arthropath y of lumbar facet joint 407252683 M47.816 [id number] JACQUELINE MCBRIDE NP [address] [place] [address] 3 02/10/2024 09:39:59 02/10/2024 10:09:18 Lumbar radiculopathy 418834870 M54.16 Degenerati on of lumbar intervertebral disc 49713567 M51.36 [id number] Pro Plascencia MD [address] [place] [address] 03/21/2024 14:17:35 03/21/2024 15:36:20 Arthropathy of lumbar facet joint 914598032 M47.816 Degenerati on of lumbar intervertebral disc 22219569 M51.362 Foot pain 64961882 M79.6 71 M79.672 Lumbar radiculopathy 128 689601 M54.16 Lumbar spondylosis 93176 0009 M47.896 [id number] Pro Plascencia MD [place] [facility] [address] [place] [address] 04/19/2024 15:10:12 04/19/2024 16:02:14 Lumbar radiculopathy 875132469 M54.16 Lumbar spondylosis 79784 0009 M47.896 Degenerati on of lumbar intervertebral disc 08907666 M51.362 Arthropath y of lumbar facet joint 026390254 M47.816 Foot pain 38285114 M79.6 71 M79.672 Health Concerns Section Related Observation LastModified by Organization Detai ls LastModified Time None Recorded Concern Status LastModified by Organization Details LastModified Time None Recorded Advance Directives Directive N: Payers Encounter Date Sequence Insurance Name Policy Number Policy Mercado Covered Member ID Mercado Member ID Guarantor Name 01/10/2024 1 [place] [id number] Opal Marjorie [id number] Opal Marjorie 01/26/2024 1 [place] [id number] 9 Opal Marjorie [id number] Opal Marjorie 02/10/2024 1 [place] [id number] 9 Opal Marjorie [id number] Opal Marjorie 03/21/2024 1 [place] [id number] 9 Opal Marjorie [id number] Opal Marjorie 04/19/2024 1 [place] [id number] 9 Opal Marjorie [id number] Opal Marjorie Notes Date Note Type Note Provider Name and Address Organization Details Recorded Time 01/10/2024 text/html FootReported bypatient.Location: bilateral Quality:burning; stabbing Severity:improving; pain level 5/10; worst pain 10/10 Timing:nighttime; constant Duration:1 years; continuous since onset Context:cannot identify Aggravating Factors:standing; walking; lifting; carrying; twisting; weightbearing Alleviating Factors:sitting; lying down; rest Associated Symptoms:no swelling; no redness; no warmth; no ecchymosis; no catching/locking; no popping/clicking; no buckling; no grinding; no instability; no radiation down leg; no drainage; no fever; no chills; no weight loss; no change in bowel/bladder habits; no paresthesias;weakne ss;numbness;tinglin g Previous Surgery:date: (january 2023) Previous Injections:helped significantly; had cortisone shots done before she broke her foot Previous PT:currently doing pt she is doing her second visit today Working:regular duty Work Related:noSCS Trial Lead PullReported bypatient.SCS Trial Date-Date: 08/18/2023 Duration of Trial-4 days Pain Relief-90 % 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; 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; 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; 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 % Signs of infection-None Patient wishes to schedule permanent implant-Yes Melisa Arteaga NP [address], [address], [place] - [facility] 01/10/2024 10:58:55 01/26/2024 text/html FootReported bypatient.Location: bilateral Quality:burning; stabbing Severity:improving; pain level 8/10; worst pain 10/10 Timing:nighttime; constant Duration:1 years; continuous since onset Context:cannot identify Aggravating Factors:standing; walking; lifting; carrying; twisting; weightbearing Alleviating Factors:sitting; lying down; rest Associated Symptoms:no swelling; no redness; no warmth; no ecchymosis; no catching/locking; no popping/clicking; no buckling; no grinding; no instability; no radiation down leg; no drainage; no fever; no chills; no weight loss; no change in bowel/bladder habits; no paresthesias;weakne ss;numbness;tinglin g Previous Surgery:date: (january 2023) Previous Injections:helped significantly; had cortisone shots done before she broke her foot Previous PT:currently doing pt she is doing her second visit today Working:regular duty Work Related:noSCS Trial Lead PullReported bypatient.SCS Trial Date-Date: 08/18/2023 Duration of Trial-4 days Pain Relief-90 % 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; 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; 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; 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 % Signs of infection-None Patient wishes to schedule permanent implant-Yes Pro Plascencia MD [address], [address], [place] [facility] 01/26/2024 09:19:22 02/10/2024 text/html FootReported bypatient.Location: bilateral Quality:burning; stabbing Severity:improving; pain level 8/10; worst pain 10/10 Timing:nighttime; constant Duration:1 years; continuous since onset Context:cannot identify Aggravating Factors:standing; walking; lifting; carrying; twisting; weightbearing Alleviating Factors:sitting; lying down; rest Associated Symptoms:no swelling; no redness; no warmth; no ecchymosis; no catching/locking; no popping/clicking; no buckling; no grinding; no instability; no radiation down leg; no drainage; no fever; no chills; no weight loss; no change in bowel/bladder habits; no paresthesias;weakne ss;numbness;tinglin g Previous Surgery:date: (january 2023) Previous Injections:helped significantly; had cortisone shots done before she broke her foot Previous PT:currently doing pt she is doing her second visit today Working:regular duty Work Related:noSCS Trial Lead PullReported bypatient.SCS Trial Date-Date: 08/18/2023 Duration of Trial-4 days Pain Relief-90 % 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; 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; 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; 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 % Signs of infection-None Patient wishes to schedule permanent implant-Yes JACQUELINE MCBRIDE NP [address], [address], [place] [facility] 02/10/2024 12:59:13 03/21/2024 text/html FootReported bypatient.Location: bilateral Quality:burning; stabbing Severity:improving; pain level 9/10; worst pain 10/10 Timing:nighttime; constant Duration:1 years; continuous since onset Context:cannot identify Aggravating Factors:standing; walking; lifting; carrying; twisting; weightbearing Alleviating Factors:sitting; lying down; rest Associated Symptoms:no swelling; no redness; no warmth; no ecchymosis; no catching/locking; no popping/clicking; no buckling; no grinding; no instability; no radiation down leg; no drainage; no fever; no chills; no weight loss; no change in bowel/bladder habits; no paresthesias;weakne ss;numbness;tinglin g Previous Surgery:date: (january 2023) Previous Injections:helped significantly; had cortisone shots done before she broke her foot Previous PT:currently doing pt she is doing her second visit today Working:regular duty Work Related:noSCS Trial Lead PullReported bypatient.SCS Trial Date-Date: 08/18/2023 Duration of Trial-4 days Pain Relief-90 % 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; 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; 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; 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 % Signs of infection-None Patient wishes to schedule permanent implant-Yes Pro Plascencia MD [address], [address], [place] [facility] 03/21/2024 16:26:31 04/19/2024 text/html FootReported bypatient.Location: bilateral Quality:burning; stabbing Severity:improving; pain level 9/10; worst pain 10/10 Timing:nighttime; constant Duration:1 years; continuous since onset Context:cannot identify Aggravating Factors:standing; walking; lifting; carrying; twisting; weightbearing Alleviating Factors:sitting; lying down; rest Associated Symptoms:no swelling; no redness; no warmth; no ecchymosis; no catching/locking; no popping/clicking; no buckling; no grinding; no instability; no radiation down leg; no drainage; no fever; no chills; no weight loss; no change in bowel/bladder habits; no paresthesias;weakne ss;numbness;tinglin g Previous Surgery:date: (january 2023) Previous Injections:helped significantly; had cortisone shots done before she broke her foot Previous PT:currently doing pt she is doing her second visit today Working:regular duty Work Related:noSCS Trial Lead PullReported bypatient.SCS Trial Date-Date: 08/18/2023 Duration of Trial-4 days Pain Relief-90 % 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
== END ==
LOC: SL 10:20
PROVIDERS: PCP Specialist; Visit Provider Specialist
DX: G47.33 Obstructive sleep apnea (adult) (pediatric) (principal)
CPT/HCPCS: G0399

== ENCOUNTER 2024-11-13 07:17 | Day surgery (SDC) | payer BC, SELFPAY ==
[2024-11-09 09:47] VITALS: BMI 25.4
[2024-11-13 07:42] VITALS: BP 111/77; PULSE 59; RESP 16; TEMP 36.3; O2SAT 97
--- NOTE | 2024-11-13 08:09 | EXP.ANES.CKL ---
[facility] Disclaimer: The information contained in this section may have been updated after the patient was seen, as this information can be updated by other users. Medical History Ankle pain Dyspnea on exertion Allergic rhinitis Asthma Sleep apnea Diabetes mellitus, type 2 Hyperlipidemia DEXTER (obstructive sleep apnea) Mild to moderate positional DEXTER, borderline compliance on CPAP, persistent fatigue and hypersomnia, history of rheumatoid arthritis and fibromyalgia, average sleep time 5 hours. Differential diagnosis of hypersomnia include the side effect of medications, poor CPAP compliance, residual hypersomnia w/ DEXTER, poor sleep hygiene, fatigue associated with RA and fibromyalgia. Restless leg syndrome Currently managed by PCP with pramipexole, ferritin level 135 05/18/2022 Low back pain Surgical History History of foot surgery History of lithotripsy History of breast biopsy History of carpal tunnel surgery of right wrist History of cholecystectomy History of partial hysterectomy Family History Other Coronary artery disease Diabetes Heart attack Hyperlipidemia Hypertension Social History Smoking Status: Former smoker years smoked: 30 smoking status stop date: 2006 alcohol intake: current alcohol intake frequency: a few times a month substance use type: denies use current occupational status: other Travel in the last 8 weeks?: None household members: spouse housing: house current occupation: [employer] current occupational exposures/hazards: No caffeine: Yes Have you lived/traveled outside [place] in past 30 days?: No Contact w/someone who lives/traveled outside US past 30 days?: No Exposure to someone with infectious disease in past 14 days?: No Do you have a fever (greater than 100.4 F or 38 C)?: No Have you tested positive for COVID-19?: No Exposed to someone with COVID-19 in past 14 days?: No Do you have a sore throat?: No Do you have a cough?: No Do you have any weakness?: No Do you have any diarrhea?: No Are you experiencing any unusual bleeding?: No Do you have any muscle aches/pain?: No Do you have any abdominal pain?: No Are you experiencing loss of taste or smell?: No [facility] Anesthesia Checklist Patient Identification Patient Identification: Arm Band Structural Data Admitted From: Home Planned Operative Procedure/s: Colonoscopy Consent for Planned Operative Procedure(s) Verified: Yes Verified Documents: Surgical Consent and History and Physical NPO Status Verified Time NPO: 00:00 Additional verifications Anesthesia Reactions: No Hx Blood Transfusions: No Blood Transfusion Reaction: No Airway Assessment Mallampati Score:: Class II C-Spine Mobility Assessed: Yes TMJ Mobility Assessed: Yes Dentition: Good Dentition Neurological Assessment Level of Consciousness: Awake, Alert and Appropriate Anesthesia Plan Anesthesia Risk discussed: Yes Anesthesia Plan: Verified ASA Class: II Anesthesia Type: MAC
--- NOTE | 2024-11-13 08:14 | EXP.GEN.HP ---
HPI HPI HPI: The patient returns for colonoscopy. She has a history of polyps. Her last colonoscopy was in October 2021 at which time fairly significant tortuosity, moderate prep, and scattered diverticulosis noted. Follow-up barium enema (secondary to severe tortuosity) was completed. Her barium enema revealed sigmoid diverticulosis but was otherwise normal . [facility] Disclaimer: The information contained in this section may have been updated after the patient was seen, as this information can be updated by other users. Medical History Ankle pain Dyspnea on exertion Allergic rhinitis Asthma Sleep apnea Diabetes mellitus, type 2 Hyperlipidemia DEXTER (obstructive sleep apnea) Mild to moderate positional DEXTER, borderline compliance on CPAP, persistent fatigue and hypersomnia, history of rheumatoid arthritis and fibromyalgia, average sleep time 5 hours. Differential diagnosis of hypersomnia include the side effect of medications, poor CPAP compliance, residual hypersomnia w/ DEXTER, poor sleep hygiene, fatigue associated with RA and fibromyalgia. Restless leg syndrome Currently managed by PCP with pramipexole, ferritin level 135 05/18/2022 Low back pain Surgical History History of foot surgery History of lithotripsy History of breast biopsy History of carpal tunnel surgery of right wrist History of cholecystectomy History of partial hysterectomy Family History Other Coronary artery disease Diabetes Heart attack Hyperlipidemia Hypertension Social History Smoking Status: Former smoker years smoked: 30 smoking status stop date: 2006 alcohol intake: current alcohol intake frequency: a few times a month substance use type: denies use current occupational status: other Travel in the last 8 weeks?: None household members: spouse housing: house current occupation: [employer] current occupational exposures/hazards: No caffeine: Yes Have you lived/traveled outside US in past 30 days?: No Contact w/someone who lives/traveled outside US past 30 days?: No Exposure to someone with infectious disease in past 14 days?: No Do you have a fever (greater than 100.4 F or 38 C)?: No Have you tested positive for COVID-19?: No Exposed to someone with COVID-19 in past 14 days?: No Do you have a sore throat?: No Do you have a cough?: No Do you have any weakness?: No Do you have any diarrhea?: No Are you experiencing any unusual bleeding?: No Do you have any muscle aches/pain?: No Do you have any abdominal pain?: No Are you experiencing loss of taste or smell?: No Other Medical History Have you received the Flu Vaccine for this season: Yes Have you received the Pneumonia Vaccine: No Review of Systems Review of Systems Review of systems:: pertinent systems reviewed and negative unless documented below Meds Home Medications and Allergies Home Medications ?Medication ?Instructions ?Recorded ?Confirmed ?Type atorvastatin 10 mg tablet 10 mg PO DAILY Cholesterol 04/15/19 11/13/24 History pantoprazole 40 mg tablet,delayed 40 mg PO DAILY GERD 07/08/21 11/13/24 History release cholecalciferol (vitamin D3) 50 2,000 unit PO DAILY Supplement 07/27/21 11/13/24 History mcg (2,000 unit) tablet famotidine 20 mg tablet 20 mg PO BID acid reflux 10/23/21 11/13/24 History donepezil 10 mg tablet 10 mg PO DAILY * 06/09/22 11/13/24 History escitalopram oxalate 20 mg tablet 20 mg PO DAILY Depression 06/09/22 11/13/24 History folic acid 1 mg tablet 1 mg PO DAILY Supplement 06/09/22 11/13/24 History methotrexate sodium 2.5 mg tablet 20 mg PO WEEKLY * 06/09/22 11/13/24 History pramipexole 0.125 mg tablet 0.375 mg PO HS RLS 06/09/22 11/13/24 History methocarbamol 500 mg tablet 1,000 mg (2 x 500 mg) PO Q8H PRN 06/05/24 11/13/24 Rx muscle pain and spasm #30 tabs mometasone 100 mcg/actuation HFA 1 inh inhalation BID 90 days #13 06/25/24 11/13/24 Rx aerosol inhaler grams pregabalin 150 mg capsule 150 mg PO TID 06/25/24 11/13/24 History tirzepatide (weight loss) 7.5 10 mg SQ WEEKLY 06/25/24 11/13/24 History mg/0.5 mL subcutaneous pen injector (Zepbound) budesonide-formoterol HFA 160 See Rx Instructions .Route 08/21/24 11/13/24 Rx mcg-4.5 mcg/actuation aerosol .COMPLEX #10.3 grams inhaler (Breyna) New Prescriptions to Start Prescriptions: Allergies Allergy/AdvReac Type Severity Reaction Status Date / Time NSAIDS (Non-Steroidal Allergy Nausea Verified 11/13/24 07:41 Anti-Inflamma aspirin AdvReac Mild NA-NAUSEA Verified 11/13/24 07:41 codeine AdvReac Mild NA-NAUSEA Verified 11/13/24 07:41 oxycodone (From Percocet) AdvReac Mild NA-NAUSEA Verified 11/13/24 07:41 Sulfa (Sulfonamide AdvReac Mild NA-NAUSEA Verified 11/13/24 07:41 Antibiotics) Exam Data for Last 24 hours Vital signs and Labs for Last 24 Hours: Temp Pulse Resp BP Pulse Ox O2 Del Method 97.4 F L 59 L 16 111/77 97 Room Air 11/13/24 07:42 11/13/24 07:42 11/13/24 07:42 11/13/24 07:42 11/13/24 07:42 11/13/24 07:42 Constitutional Constitutional: no acute distress *Routine HEENT Exam Head: Present normocephalic Eye: Present EOMI ENT: Present mucous membranes moist *Routine Neck Exam Neck: Present full ROM *Routine Respiratory Exam Respiratory: Absent respiratory distress *Routine Cardiovascular Exam Cardiovascular: Absent tachycardia *Routine Abdominal Exam Abdominal: Present soft *Routine Rectal Exam Rectal:: deferred *Routine Genitalia Exam Genitalia:: deferred *Routine Extremities Exam Extremities: Present full ROM *Routine Skin Exam Skin: Absent erythema *Routine Neurological Exam Neurological: Present alert Assessment and Plan *Assessment and plan (1) History of colon polyps: Status: Acute Category: Medical Code(s): Z86.0100 - Personal history of colon polyps, unspecified Plan: Colonoscopy today I have discussed the risks and benefits including, but not limited to: Bleeding Infection Damage to surrounding tissue Inherent risks of sedation The patient agrees to proceed.
--- NOTE | 2024-11-13 08:16 | P.PCN_ITS ---
Procedure: Date: 11/13/24 Patient Date of :: 1965 Procedure Performed:: Colonoscopy Indications:: History of colon polyps Note: Most recent colonoscopy October 2021 was somewhat complicated by moderate leyda l preparation and fairly severe tortuosity. Scattered diverticulosis noted. Follow-up barium enema revealed sigmoid diverticulosis but was otherwise negative. Performing Provider:: Jaylen Aguilera MD Referring Provider:: . Sedation:: Monitored anesthesia care Procedure:: After informed consent was obtained the patient was taken to the endoscopy suite. Sedation ensued after the patient was transferred to the left lateral decubitus position. Pulse, blood pressure, and oxygen saturation were monitored throughout the procedure. Digital rectal exam revealed no significant abnormality. The colonoscope was placed in position. The entire colon was evaluated. The colonoscope was carefully removed and the patient was transferred to recovery in stable condition. Please see findings and specimens below for detail. Findings:: Bowel preparation moderate Fairly severe spasticity/lack of relaxation Significant tortuosity Unchanged diverticulosis Specimens:: None Recommendations:: Repeat colonoscopy in 3-5 years secondary to history of polyps, spasticity/lack of relaxation, and tortuosity. Complications:: No immediate Estimated blood obtained (mL): 0 Colonoscopy Component Colonoscopy Component Was a colonoscopy performed during today's procedure?: Yes Recommended follow up colonoscopy of at least 10 years?: No If no, follow up colonoscopy recommended in ___ years?: (See above) Reason for not recommending >/= 10 yr follow-up interval?: (See above)
[2024-11-13 09:02] VITALS: BP 81/48; PULSE 73; RESP 16; TEMP 36.2; O2SAT 94
[2024-11-13 09:12] VITALS: BP 80/54; PULSE 73; RESP 14; O2SAT 95
[2024-11-13 09:22] VITALS: BP 98/63; PULSE 72; RESP 16; O2SAT 97
[2024-11-13 09:32] VITALS: BP 112/46; PULSE 65; RESP 16; O2SAT 98
== END 2024-11-13 09:42 | disposition home or self-care (01) ==
PROVIDERS: PCP Family Medicine; Visit Provider Surgery
PROC: 0DJD8ZZ Inspection of Lower Intestinal Tract, Via Natural or Artificial Opening Endoscopic (ICD-10-PCS; CPT 45378; principal; 2024-11-13 08:20)
DX: Z12.11 Encounter for screening for malignant neoplasm of colon (principal); Z86.0100 Personal history of colon polyps, unspecified; K57.30 Diverticulosis of large intestine without perforation or abscess without bleeding; Q43.8 Other specified congenital malformations of intestine; K58.9 Irritable bowel syndrome, unspecified; G47.33 Obstructive sleep apnea (adult) (pediatric); M79.7 Fibromyalgia; M06.9 Rheumatoid arthritis, unspecified; G25.81 Restless legs syndrome; E78.5 Hyperlipidemia, unspecified; E11.9 Type 2 diabetes mellitus without complications; J45.909 Unspecified asthma, uncomplicated; Z88.6 Allergy status to analgesic agent; Z88.5 Allergy status to narcotic agent; Z88.2 Allergy status to sulfonamides; Z90.49 Acquired absence of other specified parts of digestive tract; Z87.891 Personal history of nicotine dependence; Z79.899 Other long term (current) drug therapy; Z79.51 Long term (current) use of inhaled steroids; Z79.85 Long-term (current) use of injectable non-insulin antidiabetic drugs; Z79.631 Long term (current) use of antimetabolite agent
CPT/HCPCS: 45378; J2003; J2704